=== PATIENT | female | born 1960 | race Two or more races ===

== ENCOUNTER 2017-12-24 11:54 | Emergency (ER) | payer MEDICARE, MEDICAID ==
[~2017-12-24] VITALS: Ht 160 cm; Wt 87.0 kg
[2017-12-24 12:03] VITALS: BP 172/84
[2017-12-24] MEDS ORDERED: SODIUM CHLORIDE 0.9% 1,000ML IVBOLUS ONE (12:30)
[2017-12-24 13:14] LABS: BASOPHILS # (AUTO) 0.02 x10^3/uL (0-0.1); BASOPHILS % (AUTO) 0 % (0-1); EOSINOPHILS # (AUTO) 0.05 x10^3/uL (0-0.4); EOSINOPHILS % (AUTO) 1 % (1-7); LYMPHOCYTES # (AUTO) 1.68 x10^3/uL (1-3.4); LYMPHOCYTES % (AUTO) 22 % (22-44); MD NO; MEAN CORPUSCULAR HEMOGLOBIN 25.9 pg (27.0-34.8); MEAN CORPUSCULAR VOLUME 80.8 fL (80-100); MEAN PLATELET VOLUME 8.5 fL (7.4-10.4); MONOCYTES # (AUTO) 0.36 x10^3/uL (0.2-0.8); MONOCYTES % (AUTO) 5 % (2-9); NEUTROPHILS # (AUTO) 5.67 x10^3/uL (1.8-6.8); NEUTROPHILS % (AUTO) 73 % (42-75); PLATELET COUNT 350 x10^3/uL (130-400); RED BLOOD COUNT 4.55 x10^6/uL (3.82-5.3); RED CELL DISTRIBUTION WIDTH 14.3 % (9.6-15.2)
[2017-12-24] MEDS ORDERED: BACITRACIN ZINC OINT 500U/GM, 0.9 GM ONE (13:21)
[2017-12-24 13:26] LABS: ALANINE AMINOTRANSFERASE 16 U/L (12-78); ANION GAP 12 mmol/L (5-15); CALCIUM 8.6 mg/dL (8.5-10.1); CHLORIDE 96 mmol/L (98-107); CREATININE 1.68 mg/dL (0.55-1.02)
[2017-12-24 13:28] LABS: ALKALINE PHOSPHATASE 189 U/L (45-117); BILIRUBIN,TOTAL 0.3 mg/dL (0.2-1.0); TOTAL PROTEIN 7.5 g/dL (6.4-8.2)
[2017-12-24] MEDS ORDERED: INSULIN REGULAR 100 UNITS/ML, 3ML VIAL SQ-INSULIN ONE (14:00)
[2017-12-24] MEDS ORDERED: INSULIN REGULAR 100 UNITS/ML, 3ML VIAL ONE (14:00)
[2017-12-24] MEDS ORDERED: ACETAMINOPHEN 325 MG TABLET ONE (14:12)
[2017-12-24] MEDS ORDERED: ACETAMINOPHEN 325 MG TABLET PO ONE (14:30)
== END 2017-12-24 15:02 | disposition home or self-care (01) ==
LOC: ED 13:43
DX: S80.02XA Contusion of left knee, initial encounter (principal); E11.65 Type 2 diabetes mellitus with hyperglycemia; I10 Essential (primary) hypertension; Z87.19 Personal history of other diseases of the digestive system; W01.0XXA Fall on same level from slipping, tripping and stumbling without subsequent striking against object, initial encounter; Y93.89 Activity, other specified; Y92.89 Other specified places as the place of occurrence of the external cause; Y99.8 Other external cause status
CPT/HCPCS: 36415; 73564; 80053; 82962; 85025; 96360; 96372; 99285; J7030

== ENCOUNTER 2018-05-21 17:48 | Emergency (ER) | payer OTHER, MEDICAID ==
[2018-05-21] MEDS ORDERED: HYDROcodone/APAP 5/325 TABLET ONE (18:29)
[2018-05-21] MEDS ORDERED: IBUPROFEN 600 MG TABLET ONE (18:29)
[2018-05-21] MEDS ORDERED: IBUPROFEN 600 MG TABLET PO ONE (18:30)
[2018-05-21] MEDS ORDERED: HYDROcodone/APAP 5/325 TABLET PO PRN (18:30)
--- NOTE | 2018-05-21 18:45 | NUR ---
Pt in radiology, will medicate when back to room
--- NOTE | 2018-05-21 19:07 | NUR ---
Pt back from radiology medicated per EMAR
--- NOTE | 2018-05-21 19:45 | NUR ---
TASK RN: Discharge instructions discussed with patient including when to return to emergency department, patient verbalizes understanding. Patient dresses independently, ambulates with a cane.
[2018-05-21 19:46] VITALS: BP 189/81
== END 2018-05-22 12:17 | disposition home or self-care (01) ==
LOC: ED 20:09
DX: G89.11 Acute pain due to trauma (principal); M25.512 Pain in left shoulder; M25.522 Pain in left elbow; M25.562 Pain in left knee; Z72.9 Problem related to lifestyle, unspecified; I10 Essential (primary) hypertension; E78.00 Pure hypercholesterolemia, unspecified; E11.65 Type 2 diabetes mellitus with hyperglycemia; W01.0XXA Fall on same level from slipping, tripping and stumbling without subsequent striking against object, initial encounter; Y93.89 Activity, other specified; Y92.410 Unspecified street and highway as the place of occurrence of the external cause; Y99.8 Other external cause status
CPT/HCPCS: 70450; 72125; 99284

== ENCOUNTER 2018-06-03 09:22 | Inpatient (IN) | payer OTHER, MEDICAID ==
[~2018-06-03] VITALS: Ht 160 cm; Wt 91.2 kg
[~2018-06-03 09:22] MED LIST: NITROGLYCERIN 0.4 MG BOTTLE (25 TABS) SL ONE
[2018-06-03] MEDS: BACITRACIN ZINC OINT 500U/GM, 0.9 GM TP STA ×2 (09:56→16:01)
--- NOTE | 2018-06-03 10:40 | NUR ---
Pt presents for pain and sbrasion to L knee after falling to days ago. Pt NAD at this time.
[2018-06-03 10:45] LABS: MEAN CORPUSCULAR HEMOGLOBIN 26.1 pg (27.0-34.8); MEAN CORPUSCULAR HGB CONC 32.1 g/dL (32.4-35.8); MEAN CORPUSCULAR VOLUME 81.5 fL (80-100); MEAN PLATELET VOLUME 8.2 fL (7.4-10.4); PLATELET COUNT 406 x10^3/uL (130-400); RED BLOOD COUNT 4.58 x10^6/uL (3.82-5.3); RED CELL DISTRIBUTION WIDTH 14.4 % (9.6-15.2)
[2018-06-03 10:46] LABS: HCT (SEDRATE) 37.7 % (34.6-47.8)
[2018-06-03 10:54] LABS: ALBUMIN 3.1 g/dL (3.4-5.0); ANION GAP 8 mmol/L (5-15); CHLORIDE 98 mmol/L (98-107); CREATININE 1.49 mg/dL (0.55-1.02)
[2018-06-03 11:06] LABS: BASOPHILS # (AUTO) 0.03 x10^3/uL (0-0.1); BASOPHILS % (AUTO) 0 % (0-1); EOSINOPHILS % (AUTO) 0 % (1-7); LYMPHOCYTES # (AUTO) 1.09 x10^3/uL (1-3.4); LYMPHOCYTES % (AUTO) 6 % (22-44); MD SCAN; MONOCYTES # (AUTO) 0.47 x10^3/uL (0.2-0.8); MONOCYTES % (AUTO) 3 % (2-9); NEUTROPHILS # (AUTO) 16.96 x10^3/uL (1.8-6.8); NEUTROPHILS % (AUTO) 92 % (42-75)
[2018-06-03] MEDS ORDERED: SODIUM CHLORIDE 0.9% 1,000 ML IV ONE (11:33)
[2018-06-03] MEDS ORDERED: ONDANSETRON 2MG/ML, 2ML ONE ×2 (11:37→17:50)
[2018-06-03] MEDS ORDERED: MORPHINE SULFATE 4 MG/ML, 1ML ONE (11:37)
[2018-06-03] MEDS ORDERED: CEFTRIAXONE PMX 1GM/50ML 50 ML ONE (11:37)
[2018-06-03] MEDS ORDERED: CEFTRIAXONE PMX 1GM/50ML 50 ML IVPB ONE (12:00)
[2018-06-03] MEDS ORDERED: MORPHINE SULFATE 4 MG/ML, 1ML IVPush PRN ×2 (12:00→18:00)
[2018-06-03] MEDS ORDERED: ONDANSETRON 2MG/ML, 2ML IVPush ONE (12:00)
[2018-06-03] MEDS ORDERED: SODIUM CHLORIDE 0.9% 1,000ML IVBOLUS ONE (12:00)
[2018-06-03] MEDS ORDERED: HYDR25TA11 PO (12:10)
[2018-06-03] MEDS ORDERED: INSU100V8 SQ (12:10)
[2018-06-03] MEDS ORDERED: PANT40TA5 PO (12:10)
[2018-06-03] MEDS ORDERED: CITA20TA9 PO (12:10)
[2018-06-03] MEDS ORDERED: INSU100C SQ-INSULIN (12:10)
[2018-06-03] MEDS ORDERED: BENA20TA54 PO (12:10)
[2018-06-03] MEDS ORDERED: GABA600T7 PO (12:10)
[2018-06-03] MEDS ORDERED: LOSA25TA25 PO (12:10)
[2018-06-03] MEDS ORDERED: METH750T2 PO (12:10)
[2018-06-03] MEDS ORDERED: ATOR40TA78 PO (12:10)
[2018-06-03] MEDS ORDERED: LINA5TAB PO (12:10)
[2018-06-03] MEDS ORDERED: IRON15TA3 PO (12:13)
[2018-06-03] MEDS ORDERED: TRAZODONE 50MG TABLET PO PRN (12:30)
[2018-06-03] MEDS ORDERED: POLYETHYLENE GLYCOL 17 GM PACKET PO PRN (12:30)
[2018-06-03] MEDS ORDERED: LABETALOL 5 MG/ML SYRINGE IVPush PRN (12:30)
[2018-06-03] MEDS ORDERED: ONDANSETRON 2MG/ML, 2ML IVPush PRN (12:30)
[2018-06-03] MEDS ORDERED: DOCUSATE 100 MG CAPSULE PO PRN (12:30)
[2018-06-03] MEDS ORDERED: ONDANSETRON ODT 4 MG PO PRN (12:30)
[2018-06-03] MEDS ORDERED: hydrALAzine 20 MG/ML, 1ML IVPush PRN (12:30)
[2018-06-03] MEDS ORDERED: BISACODYL 10 MG SUPP PR PRN (12:30)
[2018-06-03 12:57] LABS: FREE T4 (FREE THYROXINE) 1.16 ng/dL (0.76-1.46); THYROID STIMULATING HORMONE 0.935 mIU/L (0.358-3.740)
[2018-06-03 14:15] VITALS: BP 154/85
[2018-06-03] MEDS: MORPHINE SULFATE 4 MG/ML, 1ML IVPush PRN (14:34)
[2018-06-03] MEDS: LACTATED RINGERS 1,000 ML IV SCH (14:34)
[2018-06-03] MEDS: INSULIN REGULAR 100 UNITS/ML, 3ML VIAL SQ-INSULIN SCH ×2 (16:01→22:27)
[2018-06-03] MEDS ORDERED: FENTANYL PF 100 MCG/2ML ONE ×2 (16:58→18:14)
[2018-06-03] MEDS ORDERED: VANCOMYCIN 1,000 MG ONE (17:02)
[2018-06-03] MEDS ORDERED: CEFTRIAXONE 1,000 MG ONE (17:02)
[2018-06-03] MEDS ORDERED: PHENYLEPHRINE 10 MG/ML ONE (17:04)
[2018-06-03] MEDS ORDERED: CEFTRIAXONE 2 GM/50 ML ONE (17:04)
[2018-06-03] MEDS ORDERED: DEXAMETHASONE 4 MG/ML, 1ML ONE (17:50)
[2018-06-03] MEDS ORDERED: PROPOFOL 10 MG/ML, 20ML ONE (17:50)
[2018-06-03] MEDS ORDERED: ALBUTEROL/IPRATROPIUM 2.5MG/0.5MG, 3 ML NPPB PRN (18:00)
[2018-06-03] MEDS ORDERED: OXYcodone 5 MG/5 ML ORAL.SOL UDC PO PRN (18:00)
[2018-06-03] MEDS ORDERED: PROMETHAZINE 25 MG/ML, 1ML IV PRN (18:00)
[2018-06-03] MEDS ORDERED: METOPROLOL 1 MG/ML, 5ML IV PRN (18:00)
[2018-06-03] MEDS ORDERED: SCOPOLAMINE PATCH, 1.5MG PATCH.TD72 TD PRN (18:00)
[2018-06-03] MEDS ORDERED: ONDANSETRON 2MG/ML, 2ML IV PRN (18:00)
[2018-06-03] MEDS ORDERED: ACETAMINOPHEN 325 MG TABLET PO PRN (18:00)
[2018-06-03] MEDS ORDERED: MIDAZOLAM 1 MG/ML, 2ML IV PRN (18:00)
[2018-06-03] MEDS ORDERED: OXYcodone 5 MG/5 ML ORAL.SOL UDC ONE (18:14)
[2018-06-03] MEDS: FENTANYL PF 100 MCG/2ML IV PRN ×2 (18:16→18:41)
[2018-06-03 21:26] VITALS: BP 130/83
[2018-06-03] MEDS ORDERED: CEFTRIAXONE PMX 2GM/50ML 50 ML IVPB SCH (22:00)
[2018-06-03] MEDS: ATORVASTATIN 40 MG TABLET PO SCH (22:27)
[2018-06-03] MEDS: LOSARTAN 50MG TABLET PO SCH (22:28)
[2018-06-03] MEDS: GABAPENTIN 300 MG CAPSULE PO SCH (22:28)
[2018-06-03] MEDS: PANTOPROZOLE 40MG TABLET PO SCH (22:28)
[2018-06-03] MEDS: METHOCARBAMOL 750 MG TABLET PO PRN (22:33)
[2018-06-04 00:17] VITALS: BP 154/82
[2018-06-04] MEDS: ACETAMINOPHEN 325 MG TABLET PO PRN ×4 (02:14→20:09)
[2018-06-04] MEDS: LACTATED RINGERS 1,000 ML IV SCH (02:55)
[2018-06-04 04:44] VITALS: BP 146/79
[2018-06-04] MEDS: CEFTRIAXONE PMX 2GM/50ML 50 ML IVPB SCH (05:18)
[2018-06-04 05:36] LABS: MEAN CORPUSCULAR HEMOGLOBIN 26.8 pg (27.0-34.8); MEAN CORPUSCULAR HGB CONC 32.6 g/dL (32.4-35.8); MEAN CORPUSCULAR VOLUME 82.1 fL (80-100); MEAN PLATELET VOLUME 8.4 fL (7.4-10.4); PLATELET COUNT 341 x10^3/uL (130-400); RED CELL DISTRIBUTION WIDTH 14.8 % (9.6-15.2)
[2018-06-04 05:50] LABS: CHLORIDE 98 mmol/L (98-107)
[2018-06-04 05:58] LABS: ANION GAP 9 mmol/L (5-15); CALCIUM 8.3 mg/dL (8.5-10.1); CHOL/HDL RATIO 2.3; CHOLESTEROL, TOTAL 152 mg/dL (140-239); CREATININE 1.38 mg/dL (0.55-1.02); HDL CHOL % 44 % (28-40); HDL CHOLESTEROL (DIRECT) 67 mg/dL (40-60); LDL CHOLESTEROL,CALCULATED 58 mg/dL (54-169); LDL/HDL RATIO 0.9 (0.5-3.0); TRIGLYCERIDES 133 mg/dL (50-200); VLDL CHOLESTEROL 27 mg/dL (0-25)
[2018-06-04 06:22] LABS: BASOPHILS % (AUTO) 0 % (0-1); EOSINOPHILS % (AUTO) 0 % (1-7); LYMPHOCYTES % (AUTO) 7 % (22-44); MD SCAN; MONOCYTES # (AUTO) 0.28 x10^3/uL (0.2-0.8); MONOCYTES % (AUTO) 2 % (2-9); NEUTROPHILS # (AUTO) 17.02 x10^3/uL (1.8-6.8); NEUTROPHILS % (AUTO) 92 % (42-75)
[2018-06-04] MEDS: LINAGLIPTIN 5 MG TAB PO SCH (07:43)
[2018-06-04] MEDS: INSULIN REGULAR 100 UNITS/ML, 3ML VIAL SQ-INSULIN SCH ×4 (07:43→20:10)
[2018-06-04] MEDS: BENAZEPRIL 20 MG TABLET PO SCH (07:44)
[2018-06-04] MEDS: GABAPENTIN 300 MG CAPSULE PO SCH ×2 (07:44→20:09)
[2018-06-04] MEDS: CITALOPRAM 20 MG TABLET PO SCH (07:44)
[2018-06-04] MEDS: PANTOPROZOLE 40MG TABLET PO SCH ×2 (07:44→20:09)
[2018-06-04] MEDS: LOSARTAN 50MG TABLET PO SCH ×2 (07:44→20:09)
[2018-06-04 07:58] VITALS: BP 136/64
[2018-06-04] MEDS ORDERED: IRON CARBONYL 15 MG PO SCH (09:00)
[2018-06-04 14:42] VITALS: BP 122/65
[2018-06-04 20:00] VITALS: BP 131/71
[2018-06-04] MEDS: ATORVASTATIN 40 MG TABLET PO SCH (20:09)
[2018-06-05 02:24] VITALS: BP 130/68
[2018-06-05] MEDS: CEFTRIAXONE PMX 2GM/50ML 50 ML IVPB SCH (05:13)
[2018-06-05 05:47] LABS: BASOPHILS # (AUTO) 0.05 x10^3/uL (0-0.1); BASOPHILS % (AUTO) 0 % (0-1); EOSINOPHILS # (AUTO) 0.01 x10^3/uL (0-0.4); EOSINOPHILS % (AUTO) 0 % (1-7); LYMPHOCYTES # (AUTO) 2.12 x10^3/uL (1-3.4); LYMPHOCYTES % (AUTO) 19 % (22-44); MD NO; MEAN CORPUSCULAR HEMOGLOBIN 26.7 pg (27.0-34.8); MEAN CORPUSCULAR HGB CONC 32.4 g/dL (32.4-35.8); MEAN CORPUSCULAR VOLUME 82.4 fL (80-100); MEAN PLATELET VOLUME 8.4 fL (7.4-10.4); MONOCYTES # (AUTO) 0.56 x10^3/uL (0.2-0.8); MONOCYTES % (AUTO) 5 % (2-9); NEUTROPHILS # (AUTO) 8.48 x10^3/uL (1.8-6.8); NEUTROPHILS % (AUTO) 76 % (42-75); PLATELET COUNT 334 x10^3/uL (130-400); RED BLOOD COUNT 3.87 x10^6/uL (3.82-5.3)
[2018-06-05] MEDS: METHOCARBAMOL 750 MG TABLET PO PRN (05:55)
[2018-06-05 05:59] LABS: ANION GAP 7 mmol/L (5-15); CALCIUM 8.5 mg/dL (8.5-10.1); CHLORIDE 101 mmol/L (98-107); CREATININE 1.37 mg/dL (0.55-1.02)
[2018-06-05 07:59] VITALS: BP 157/77
[2018-06-05] MEDS: INSULIN REGULAR 100 UNITS/ML, 3ML VIAL SQ-INSULIN SCH ×4 (08:30→22:38)
[2018-06-05] MEDS: LINAGLIPTIN 5 MG TAB PO SCH (08:32)
[2018-06-05] MEDS: BENAZEPRIL 20 MG TABLET PO SCH (08:33)
[2018-06-05] MEDS: PANTOPROZOLE 40MG TABLET PO SCH ×2 (08:34→20:49)
[2018-06-05] MEDS: GABAPENTIN 300 MG CAPSULE PO SCH ×2 (08:34→20:48)
[2018-06-05] MEDS: CITALOPRAM 20 MG TABLET PO SCH (08:35)
[2018-06-05] MEDS: LOSARTAN 50MG TABLET PO SCH ×2 (08:35→20:49)
[2018-06-05] MEDS: ACETAMINOPHEN 325 MG TABLET PO PRN (09:57)
[2018-06-05] MEDS ORDERED: CEFAZOLIN 2,000 MG in SODIUM CHLORIDE 0.9% 50 ML IV SCH (10:00)
[2018-06-05] MEDS: INSULIN GLARGINE 100 UNITS/ML, PEN SQ-INSULIN SCH ×2 (13:00→22:39)
[2018-06-05 14:17] VITALS: BP 149/79
[2018-06-05] MEDS: CEFAZOLIN 2,000 MG in SODIUM CHLORIDE 0.9% 50 ML IV SCH (14:53)
[2018-06-05] MEDS ORDERED: NITROGLYCERIN 0.4 MG BOTTLE (25 TABS) SL PRN (17:30)
[2018-06-05 18:29] LABS: TROPONIN I < 0.015 ng/mL (0.000-0.045)
[2018-06-05 18:35] VITALS: BP 141/80
[2018-06-05] MEDS: MORPHINE SULFATE 4 MG/ML, 1ML IVPush PRN (20:22)
[2018-06-05] MEDS: ATORVASTATIN 40 MG TABLET PO SCH (20:48)
[2018-06-05] MEDS ORDERED: INSULIN REGULAR 100 UNITS/ML, 3ML VIAL SQ-INSULIN ONE (23:00)
[2018-06-06] MEDS: CEFAZOLIN 2,000 MG in SODIUM CHLORIDE 0.9% 50 ML IV SCH ×2 (03:55→15:41)
[2018-06-06 04:20] VITALS: BP 151/76
[2018-06-06 04:37] LABS: BASOPHILS # (AUTO) 0.03 x10^3/uL (0-0.1); BASOPHILS % (AUTO) 0 % (0-1); EOSINOPHILS # (AUTO) 0.02 x10^3/uL (0-0.4); EOSINOPHILS % (AUTO) 0 % (1-7); LYMPHOCYTES % (AUTO) 22 % (22-44); MD NO; MEAN CORPUSCULAR HEMOGLOBIN 26.8 pg (27.0-34.8); MEAN CORPUSCULAR HGB CONC 32.8 g/dL (32.4-35.8); MEAN CORPUSCULAR VOLUME 81.5 fL (80-100); MEAN PLATELET VOLUME 8.3 fL (7.4-10.4); MONOCYTES # (AUTO) 0.67 x10^3/uL (0.2-0.8); MONOCYTES % (AUTO) 7 % (2-9); NEUTROPHILS % (AUTO) 71 % (42-75); PLATELET COUNT 373 x10^3/uL (130-400); RED BLOOD COUNT 3.87 x10^6/uL (3.82-5.3); RED CELL DISTRIBUTION WIDTH 14.7 % (9.6-15.2)
[2018-06-06 04:47] LABS: ANION GAP 6 mmol/L (5-15); CALCIUM 8.7 mg/dL (8.5-10.1); CHLORIDE 100 mmol/L (98-107); CREATININE 1.48 mg/dL (0.55-1.02)
[2018-06-06 06:51] VITALS: BP 160/77
[2018-06-06] MEDS: BENAZEPRIL 20 MG TABLET PO SCH (07:34)
[2018-06-06] MEDS: PANTOPROZOLE 40MG TABLET PO SCH ×2 (07:34→21:30)
[2018-06-06] MEDS: LOSARTAN 50MG TABLET PO SCH ×2 (07:34→21:31)
[2018-06-06] MEDS: LINAGLIPTIN 5 MG TAB PO SCH (07:34)
[2018-06-06] MEDS: CITALOPRAM 20 MG TABLET PO SCH (07:34)
[2018-06-06] MEDS: GABAPENTIN 300 MG CAPSULE PO SCH ×2 (07:34→21:31)
[2018-06-06] MEDS: INSULIN REGULAR 100 UNITS/ML, 3ML VIAL SQ-INSULIN SCH ×4 (07:37→21:30)
[2018-06-06] MEDS: INSULIN GLARGINE 100 UNITS/ML, PEN SQ-INSULIN SCH ×2 (07:38→21:30)
[2018-06-06 10:06] LABS: TROPONIN I < 0.015 ng/mL (0.000-0.045)
[2018-06-06] MEDS ORDERED: REGADENOSON 0.4 MG/5 ML SYRINGE ONE (10:56)
[2018-06-06 13:58] VITALS: BP 155/86
[2018-06-06] MEDS: ACETAMINOPHEN 325 MG TABLET PO PRN ×2 (14:13→23:44)
[2018-06-06 17:47] VITALS: BP 152/81
[2018-06-06 19:46] VITALS: BP 164/71
[2018-06-06] MEDS: ATORVASTATIN 40 MG TABLET PO SCH (21:31)
[2018-06-06] MEDS: METHOCARBAMOL 750 MG TABLET PO PRN (23:45)
[2018-06-07 01:43] VITALS: BP 115/70
[2018-06-07] MEDS: CEFAZOLIN 2,000 MG in SODIUM CHLORIDE 0.9% 50 ML IV SCH ×3 (04:50→22:19)
[2018-06-07 05:28] LABS: BASOPHILS # (AUTO) 0.03 x10^3/uL (0-0.1); BASOPHILS % (AUTO) 0 % (0-1); EOSINOPHILS # (AUTO) 0.06 x10^3/uL (0-0.4); EOSINOPHILS % (AUTO) 1 % (1-7); LYMPHOCYTES # (AUTO) 2.06 x10^3/uL (1-3.4); LYMPHOCYTES % (AUTO) 25 % (22-44); MD NO; MEAN CORPUSCULAR HEMOGLOBIN 26.7 pg (27.0-34.8); MEAN CORPUSCULAR HGB CONC 32.8 g/dL (32.4-35.8); MEAN CORPUSCULAR VOLUME 81.5 fL (80-100); MONOCYTES # (AUTO) 0.44 x10^3/uL (0.2-0.8); MONOCYTES % (AUTO) 5 % (2-9); NEUTROPHILS # (AUTO) 5.59 x10^3/uL (1.8-6.8); NEUTROPHILS % (AUTO) 68 % (42-75); PLATELET COUNT 415 x10^3/uL (130-400); RED BLOOD COUNT 3.85 x10^6/uL (3.82-5.3); RED CELL DISTRIBUTION WIDTH 14.6 % (9.6-15.2)
[2018-06-07 05:39] LABS: ANION GAP 6 mmol/L (5-15); CALCIUM 8.5 mg/dL (8.5-10.1); CHLORIDE 103 mmol/L (98-107)
[2018-06-07] MEDS: INSULIN REGULAR 100 UNITS/ML, 3ML VIAL SQ-INSULIN SCH ×4 (07:33→22:27)
[2018-06-07 08:16] VITALS: BP 137/75
[2018-06-07] MEDS: BENAZEPRIL 20 MG TABLET PO SCH (08:21)
[2018-06-07] MEDS: GABAPENTIN 300 MG CAPSULE PO SCH ×2 (08:22→20:49)
[2018-06-07] MEDS: CITALOPRAM 20 MG TABLET PO SCH (08:22)
[2018-06-07] MEDS: LOSARTAN 50MG TABLET PO SCH ×2 (08:22→20:49)
[2018-06-07] MEDS: LINAGLIPTIN 5 MG TAB PO SCH (08:22)
[2018-06-07] MEDS: PANTOPROZOLE 40MG TABLET PO SCH ×2 (08:22→20:49)
[2018-06-07] MEDS: INSULIN GLARGINE 100 UNITS/ML, PEN SQ-INSULIN SCH ×2 (08:29→22:27)
[2018-06-07] MEDS: MORPHINE SULFATE 4 MG/ML, 1ML IVPush PRN (10:44)
[2018-06-07] MEDS: METHOCARBAMOL 750 MG TABLET PO PRN (13:14)
[2018-06-07 13:41] VITALS: BP 147/75
[2018-06-07 19:26] VITALS: BP 138/81
[2018-06-07] MEDS: ACETAMINOPHEN 325 MG TABLET PO PRN (20:49)
[2018-06-07] MEDS: ATORVASTATIN 40 MG TABLET PO SCH (20:49)
[2018-06-08 01:41] VITALS: BP 151/79
[2018-06-08 05:00] LABS: BASOPHILS # (AUTO) 0.04 x10^3/uL (0-0.1); BASOPHILS % (AUTO) 1 % (0-1); EOSINOPHILS # (AUTO) 0.06 x10^3/uL (0-0.4); EOSINOPHILS % (AUTO) 1 % (1-7); LYMPHOCYTES % (AUTO) 27 % (22-44); MD NO; MEAN CORPUSCULAR HEMOGLOBIN 26.9 pg (27.0-34.8); MEAN CORPUSCULAR VOLUME 81.6 fL (80-100); MEAN PLATELET VOLUME 7.9 fL (7.4-10.4); MONOCYTES # (AUTO) 0.43 x10^3/uL (0.2-0.8); MONOCYTES % (AUTO) 6 % (2-9); NEUTROPHILS # (AUTO) 4.84 x10^3/uL (1.8-6.8); NEUTROPHILS % (AUTO) 66 % (42-75); PLATELET COUNT 413 x10^3/uL (130-400); RED BLOOD COUNT 3.64 x10^6/uL (3.82-5.3); RED CELL DISTRIBUTION WIDTH 14.6 % (9.6-15.2)
[2018-06-08 05:11] LABS: HCT (SEDRATE) 29.2 % (34.6-47.8)
[2018-06-08 05:14] LABS: ALBUMIN 2.1 g/dL (3.4-5.0); ANION GAP 7 mmol/L (5-15); CALCIUM 8.1 mg/dL (8.5-10.1); CHLORIDE 104 mmol/L (98-107)
[2018-06-08 05:23] LABS: ALANINE AMINOTRANSFERASE 7 U/L (12-78); ALKALINE PHOSPHATASE 176 U/L (45-117); BILIRUBIN,TOTAL 0.2 mg/dL (0.2-1.0); CREATININE 1.35 mg/dL (0.55-1.02); TOTAL PROTEIN 6.3 g/dL (6.4-8.2)
[2018-06-08] MEDS: CEFAZOLIN 2,000 MG in SODIUM CHLORIDE 0.9% 50 ML IV SCH ×3 (05:26→22:15)
[2018-06-08] MEDS: INSULIN REGULAR 100 UNITS/ML, 3ML VIAL SQ-INSULIN SCH ×4 (07:20→21:10)
[2018-06-08 07:43] VITALS: BP 134/72
[2018-06-08] MEDS: LINAGLIPTIN 5 MG TAB PO SCH (08:24)
[2018-06-08] MEDS: BENAZEPRIL 20 MG TABLET PO SCH (08:25)
[2018-06-08] MEDS: CITALOPRAM 20 MG TABLET PO SCH (08:25)
[2018-06-08] MEDS: METHOCARBAMOL 750 MG TABLET PO PRN ×2 (08:25→17:25)
[2018-06-08] MEDS: GABAPENTIN 300 MG CAPSULE PO SCH ×2 (08:25→21:08)
[2018-06-08] MEDS: LOSARTAN 50MG TABLET PO SCH ×2 (08:25→21:09)
[2018-06-08] MEDS: PANTOPROZOLE 40MG TABLET PO SCH ×2 (08:25→21:08)
[2018-06-08] MEDS: INSULIN GLARGINE 100 UNITS/ML, PEN SQ-INSULIN SCH ×2 (08:26→21:09)
[2018-06-08 13:31] VITALS: BP 168/80
[2018-06-08] MEDS: ACETAMINOPHEN 325 MG TABLET PO PRN ×2 (14:28→21:09)
[2018-06-08 20:33] VITALS: BP 159/66
[2018-06-08] MEDS: ATORVASTATIN 40 MG TABLET PO SCH (21:08)
[2018-06-09 01:58] VITALS: BP 134/67
[2018-06-09] MEDS: METHOCARBAMOL 750 MG TABLET PO PRN ×2 (02:00→11:28)
[2018-06-09] MEDS: ACETAMINOPHEN 325 MG TABLET PO PRN ×3 (02:00→20:46)
[2018-06-09] MEDS: CEFAZOLIN 2,000 MG in SODIUM CHLORIDE 0.9% 50 ML IV SCH ×3 (05:57→22:24)
[2018-06-09 06:15] LABS: BASOPHILS # (AUTO) 0.06 x10^3/uL (0-0.1); BASOPHILS % (AUTO) 1 % (0-1); EOSINOPHILS % (AUTO) 1 % (1-7); LYMPHOCYTES # (AUTO) 2.04 x10^3/uL (1-3.4); LYMPHOCYTES % (AUTO) 27 % (22-44); MD NO; MEAN CORPUSCULAR HEMOGLOBIN 26.7 pg (27.0-34.8); MEAN CORPUSCULAR HGB CONC 32.4 g/dL (32.4-35.8); MEAN CORPUSCULAR VOLUME 82.4 fL (80-100); MEAN PLATELET VOLUME 7.9 fL (7.4-10.4); MONOCYTES # (AUTO) 0.43 x10^3/uL (0.2-0.8); MONOCYTES % (AUTO) 6 % (2-9); NEUTROPHILS # (AUTO) 5.02 x10^3/uL (1.8-6.8); NEUTROPHILS % (AUTO) 66 % (42-75); PLATELET COUNT 438 x10^3/uL (130-400); RED BLOOD COUNT 3.66 x10^6/uL (3.82-5.3); RED CELL DISTRIBUTION WIDTH 15.1 % (9.6-15.2)
[2018-06-09 06:20] LABS: ANION GAP 4 mmol/L (5-15); CALCIUM 8.3 mg/dL (8.5-10.1); CHLORIDE 106 mmol/L (98-107); CREATININE 1.32 mg/dL (0.55-1.02)
[2018-06-09] MEDS: INSULIN REGULAR 100 UNITS/ML, 3ML VIAL SQ-INSULIN SCH ×4 (07:25→20:46)
[2018-06-09 07:45] VITALS: BP 124/76
[2018-06-09] MEDS: GABAPENTIN 300 MG CAPSULE PO SCH ×2 (09:01→20:47)
[2018-06-09] MEDS: INSULIN GLARGINE 100 UNITS/ML, PEN SQ-INSULIN SCH ×2 (09:02→20:46)
[2018-06-09] MEDS: CITALOPRAM 20 MG TABLET PO SCH (09:02)
[2018-06-09] MEDS: LINAGLIPTIN 5 MG TAB PO SCH (09:02)
[2018-06-09] MEDS: LOSARTAN 50MG TABLET PO SCH ×2 (09:02→20:46)
[2018-06-09] MEDS: BENAZEPRIL 20 MG TABLET PO SCH (09:02)
[2018-06-09] MEDS: PANTOPROZOLE 40MG TABLET PO SCH ×2 (09:03→20:46)
[2018-06-09 12:55] VITALS: BP 144/81
[2018-06-09 20:19] VITALS: BP 155/72
[2018-06-09] MEDS: ATORVASTATIN 40 MG TABLET PO SCH (20:46)
[2018-06-10 01:52] VITALS: BP 114/63
[2018-06-10] MEDS: CEFAZOLIN 2,000 MG in SODIUM CHLORIDE 0.9% 50 ML IV SCH ×3 (06:00→22:09)
[2018-06-10 06:27] LABS: BASOPHILS # (AUTO) 0.03 x10^3/uL (0-0.1); BASOPHILS % (AUTO) 0 % (0-1); EOSINOPHILS % (AUTO) 1 % (1-7); LYMPHOCYTES # (AUTO) 1.66 x10^3/uL (1-3.4); LYMPHOCYTES % (AUTO) 20 % (22-44); MD NO; MEAN CORPUSCULAR HEMOGLOBIN 26.1 pg (27.0-34.8); MEAN CORPUSCULAR HGB CONC 32.1 g/dL (32.4-35.8); MEAN CORPUSCULAR VOLUME 81.3 fL (80-100); MEAN PLATELET VOLUME 7.9 fL (7.4-10.4); MONOCYTES % (AUTO) 5 % (2-9); NEUTROPHILS # (AUTO) 6.27 x10^3/uL (1.8-6.8); NEUTROPHILS % (AUTO) 74 % (42-75); PLATELET COUNT 517 x10^3/uL (130-400); RED BLOOD COUNT 3.76 x10^6/uL (3.82-5.3); RED CELL DISTRIBUTION WIDTH 14.7 % (9.6-15.2)
[2018-06-10 06:35] LABS: ANION GAP 5 mmol/L (5-15); CALCIUM 8.7 mg/dL (8.5-10.1); CHLORIDE 105 mmol/L (98-107); CREATININE 1.38 mg/dL (0.55-1.02)
[2018-06-10] MEDS: INSULIN REGULAR 100 UNITS/ML, 3ML VIAL SQ-INSULIN SCH ×4 (07:00→22:10)
[2018-06-10 07:48] VITALS: BP 134/69
[2018-06-10] MEDS: LOSARTAN 50MG TABLET PO SCH ×2 (09:26→22:11)
[2018-06-10] MEDS: BENAZEPRIL 20 MG TABLET PO SCH (09:27)
[2018-06-10] MEDS: PANTOPROZOLE 40MG TABLET PO SCH ×2 (09:27→22:11)
[2018-06-10] MEDS: INSULIN GLARGINE 100 UNITS/ML, PEN SQ-INSULIN SCH ×2 (09:27→22:10)
[2018-06-10] MEDS: LINAGLIPTIN 5 MG TAB PO SCH (09:27)
[2018-06-10] MEDS: GABAPENTIN 300 MG CAPSULE PO SCH ×2 (09:27→22:11)
[2018-06-10] MEDS: CITALOPRAM 20 MG TABLET PO SCH (09:28)
[2018-06-10] MEDS: ACETAMINOPHEN 325 MG TABLET PO PRN ×2 (10:36→19:28)
[2018-06-10 13:57] VITALS: BP 157/73
[2018-06-10] MEDS: METHOCARBAMOL 750 MG TABLET PO PRN (22:10)
[2018-06-10] MEDS: ATORVASTATIN 40 MG TABLET PO SCH (22:11)
[2018-06-11 03:55] VITALS: BP 109/58
[2018-06-11] MEDS: CEFAZOLIN 2,000 MG in SODIUM CHLORIDE 0.9% 50 ML IV SCH ×3 (06:02→22:34)
[2018-06-11] MEDS: INSULIN REGULAR 100 UNITS/ML, 3ML VIAL SQ-INSULIN SCH ×4 (07:58→20:26)
[2018-06-11] MEDS: CITALOPRAM 20 MG TABLET PO SCH (07:58)
[2018-06-11] MEDS: LINAGLIPTIN 5 MG TAB PO SCH (07:59)
[2018-06-11] MEDS: PANTOPROZOLE 40MG TABLET PO SCH ×2 (07:59→20:26)
[2018-06-11] MEDS: BENAZEPRIL 20 MG TABLET PO SCH (07:59)
[2018-06-11] MEDS: LOSARTAN 50MG TABLET PO SCH ×2 (07:59→20:26)
[2018-06-11] MEDS: GABAPENTIN 300 MG CAPSULE PO SCH ×2 (07:59→20:26)
[2018-06-11] MEDS: HEPARIN 5,000 UNITS/ML, 1ML SQ SCH ×3 (08:02→22:34)
[2018-06-11] MEDS: INSULIN GLARGINE 100 UNITS/ML, PEN SQ-INSULIN SCH ×2 (08:02→20:27)
[2018-06-11 08:10] VITALS: BP 145/76
[2018-06-11 08:24] LABS: BASOPHILS # (AUTO) 0.02 x10^3/uL (0-0.1); BASOPHILS % (AUTO) 0 % (0-1); EOSINOPHILS # (AUTO) 0.05 x10^3/uL (0-0.4); EOSINOPHILS % (AUTO) 1 % (1-7); LYMPHOCYTES # (AUTO) 1.85 x10^3/uL (1-3.4); LYMPHOCYTES % (AUTO) 22 % (22-44); MD NO; MEAN CORPUSCULAR HGB CONC 31.7 g/dL (32.4-35.8); MEAN CORPUSCULAR VOLUME 82.1 fL (80-100); MONOCYTES # (AUTO) 0.33 x10^3/uL (0.2-0.8); MONOCYTES % (AUTO) 4 % (2-9); NEUTROPHILS # (AUTO) 6.24 x10^3/uL (1.8-6.8); NEUTROPHILS % (AUTO) 74 % (42-75); PLATELET COUNT 601 x10^3/uL (130-400); RED BLOOD COUNT 4.03 x10^6/uL (3.82-5.3); RED CELL DISTRIBUTION WIDTH 14.8 % (9.6-15.2)
[2018-06-11 08:30] VITALS: BP 118/69
[2018-06-11 08:33] LABS: ANION GAP 4 mmol/L (5-15); CHLORIDE 102 mmol/L (98-107)
[2018-06-11 08:34] LABS: CREATININE 1.61 mg/dL (0.55-1.02)
[2018-06-11] MEDS: ACETAMINOPHEN 325 MG TABLET PO PRN ×2 (11:07→20:25)
[2018-06-11 15:25] VITALS: BP 112/72
[2018-06-11 18:44] VITALS: BP 140/67
[2018-06-11] MEDS: ATORVASTATIN 40 MG TABLET PO SCH (20:25)
[2018-06-11] MEDS: METHOCARBAMOL 750 MG TABLET PO PRN (22:34)
[2018-06-12 01:31] VITALS: BP 125/72
[2018-06-12 05:43] LABS: ALBUMIN 2.5 g/dL (3.4-5.0); ANION GAP 4 mmol/L (5-15); CALCIUM 8.7 mg/dL (8.5-10.1); CHLORIDE 105 mmol/L (98-107)
[2018-06-12 05:49] LABS: ALANINE AMINOTRANSFERASE 8 U/L (12-78); ALKALINE PHOSPHATASE 180 U/L (45-117); BILIRUBIN,TOTAL 0.3 mg/dL (0.2-1.0); CREATININE 1.33 mg/dL (0.55-1.02); TOTAL PROTEIN 6.6 g/dL (6.4-8.2)
[2018-06-12] MEDS: CEFAZOLIN 2,000 MG in SODIUM CHLORIDE 0.9% 50 ML IV SCH ×2 (06:05→15:19)
[2018-06-12] MEDS: INSULIN REGULAR 100 UNITS/ML, 3ML VIAL SQ-INSULIN SCH ×3 (07:00→16:44)
[2018-06-12 07:51] VITALS: BP 115/72
[2018-06-12] MEDS: CITALOPRAM 20 MG TABLET PO SCH (08:11)
[2018-06-12] MEDS: LOSARTAN 50MG TABLET PO SCH (08:11)
[2018-06-12] MEDS: PANTOPROZOLE 40MG TABLET PO SCH (08:12)
[2018-06-12] MEDS: LINAGLIPTIN 5 MG TAB PO SCH (08:12)
[2018-06-12] MEDS: GABAPENTIN 300 MG CAPSULE PO SCH (08:12)
[2018-06-12] MEDS: INSULIN GLARGINE 100 UNITS/ML, PEN SQ-INSULIN SCH (08:15)
[2018-06-12] MEDS: HEPARIN 5,000 UNITS/ML, 1ML SQ SCH ×2 (08:16→16:44)
[2018-06-12] MEDS: ACETAMINOPHEN 325 MG TABLET PO PRN ×2 (10:29→15:22)
[2018-06-12] MEDS ORDERED: ACET325T14 PO (13:59)
[2018-06-12] MEDS ORDERED: INSU100I13 SQ-INSULIN (13:59)
[2018-06-12 15:00] VITALS: BP 147/86
[2018-06-12 16:40] VITALS: BP 147/86
== END 2018-06-12 18:51 | DRG 853 ==
LOC: ED 10:04 → EDIP 11:53 → 4NOR 13:14 → 5SO 06-05 17:52 → 4NOR 06-06 17:28
PROVIDERS: ADMIT Internal Medicine; ATTEND Internal Medicine
PROC: 0MBN0ZZ Excision of Right Knee Bursa and Ligament, Open Approach (ICD-10-PCS; principal; 2018-06-03 17:00)
PROC: 02HV33Z Insertion of Infusion Device into Superior Vena Cava, Percutaneous Approach (ICD-10-PCS; 2018-06-05)
PROC: B5181ZA Fluoroscopy of Superior Vena Cava using Low Osmolar Contrast, Guidance (ICD-10-PCS; 2018-06-05)
PROC: B548ZZA Ultrasonography of Superior Vena Cava, Guidance (ICD-10-PCS; 2018-06-05)
DX: A41.9 Sepsis, unspecified organism (principal); N17.0 Acute kidney failure with tubular necrosis; E87.1 Hypo-osmolality and hyponatremia; M71.161 Other infective bursitis, right knee; N18.3 Chronic kidney disease, stage 3 (moderate); K21.9 Gastro-esophageal reflux disease without esophagitis; I12.9 Hypertensive chronic kidney disease with stage 1 through stage 4 chronic kidney disease, or unspecified chronic kidney disease; E78.5 Hyperlipidemia, unspecified; E11.65 Type 2 diabetes mellitus with hyperglycemia; E11.22 Type 2 diabetes mellitus with diabetic chronic kidney disease; M21.371 Foot drop, right foot; S80.211A Abrasion, right knee, initial encounter; E78.00 Pure hypercholesterolemia, unspecified; D63.8 Anemia in other chronic diseases classified elsewhere; D50.9 Iron deficiency anemia, unspecified; D72.829 Elevated white blood cell count, unspecified; W18.30XA Fall on same level, unspecified, initial encounter; Y93.89 Activity, other specified; Z83.3 Family history of diabetes mellitus; Z59.0 Homelessness; Z79.4 Long term (current) use of insulin; Y92.89 Other specified places as the place of occurrence of the external cause; Y99.8 Other external cause status
CPT/HCPCS: 36415; 36573; 71045; 71275; 78452; 80048; 80053; 80061; 82040; 82947; 82962; 83036; 83605; 84439; 84443; 84484; 85025; 85651; 86140; 87040; 87070; 87075; 87077; 87147; 87186; 87205; 93005; 93017; 96374; 96375; G0378; J0690; J0696; J1100; J1644; J1815; J2405; J2704; J2785; J3010; J3370; Q0162; A9502; C1751; C9898; J2370; J7030; J7120

== ENCOUNTER 2018-09-26 14:09 | Emergency (ER) | payer OTHER, MEDICAID ==
[~2018-09-26] VITALS: Ht 160 cm; Wt 95.0 kg
[~2018-09-26 14:09] MED LIST changes: +ACET325T14 PO; +ACET500T57 PO; +ATOR40TA78 PO; +BENA20TA54 PO; +CITA20TA9 PO; +GABA600T7 PO; +HYDR-3342 PO; +HYDR-826 PO; +INSU100C SQ-INSULIN; +INSU100I13 SQ-INSULIN; +INSU100I28 SC; +INSU100V8 SQ; +IRON15TA3 PO; +LINA5TAB PO; +LOSA25TA25 PO; +METF500T17 PO; +METH750T2 PO; -NITROGLYCERIN 0.4 MG BOTTLE (25 TABS) SL ONE; +OMEP40CA6 PO; +PANT40TA5 PO
--- NOTE | 2018-09-26 14:16 | NUR ---
PT BIB [facility]. PT DEVELOPED CHEST PAIN AND ANXIETY AFTER [employer] EVICTED THEM FROM THEIR APT, AND SON WAS TAKEN TO SNF. FINGER STICK WAS 495 FOR [facility]. PT PLACED ON BP, CARDIAC, AND CONT PULSE OX. IV STARTED IN FIELD. EKG DONE AND PRESENTED TO MD. ASSESSMENT COMPLETED.
[2018-09-26] MEDS ORDERED: SODIUM CHLORIDE 0.9% 1,000ML IVBOLUS ONE ×2 (14:30→16:00)
[2018-09-26] MEDS ORDERED: SODIUM CHLORIDE FLUSH 10ML SYR IVF ONE (14:30)
[2018-09-26 14:39] LABS: BASOPHILS # (AUTO) 0.03 x10^3/uL (0-0.1); BASOPHILS % (AUTO) 0 % (0-1); EOSINOPHILS # (AUTO) 0.01 x10^3/uL (0-0.4); EOSINOPHILS % (AUTO) 0 % (1-7); LYMPHOCYTES # (AUTO) 1.37 x10^3/uL (1-3.4); LYMPHOCYTES % (AUTO) 16 % (22-44); MD NO; MEAN CORPUSCULAR HEMOGLOBIN 26.9 pg (27.0-34.8); MEAN CORPUSCULAR HGB CONC 31.7 g/dL (32.4-35.8); MEAN CORPUSCULAR VOLUME 84.9 fL (80-100); MEAN PLATELET VOLUME 8.4 fL (7.4-10.4); MONOCYTES # (AUTO) 0.25 x10^3/uL (0.2-0.8); MONOCYTES % (AUTO) 3 % (2-9); NEUTROPHILS # (AUTO) 6.79 x10^3/uL (1.8-6.8); NEUTROPHILS % (AUTO) 80 % (42-75); PLATELET COUNT 331 x10^3/uL (130-400); RED BLOOD COUNT 3.87 x10^6/uL (3.82-5.3); RED CELL DISTRIBUTION WIDTH 14.1 % (9.6-15.2)
[2018-09-26 14:50] LABS: ALBUMIN 2.9 g/dL (3.4-5.0); ANION GAP 10 mmol/L (5-15); CALCIUM 8.1 mg/dL (8.5-10.1); CHLORIDE 103 mmol/L (98-107); CREATININE 1.98 mg/dL (0.55-1.02)
[2018-09-26 14:54] LABS: TROPONIN I < 0.015 ng/mL (0.000-0.045)
--- NOTE | 2018-09-26 15:40 | NUR ---
BLOOD GLUCOSE 424
--- NOTE | 2018-09-26 16:10 | NUR ---
2ND LITER INFUSING
[2018-09-26] MEDS ORDERED: INSULIN REGULAR 100 UNITS/ML, 3ML VIAL SQ-INSULIN ONE (16:30)
[2018-09-26] MEDS ORDERED: INSULIN SINGLE DOSE, ER SQ-INSULIN ONE (17:09)
[2018-09-26] MEDS ORDERED: HYDROcodone/APAP 5/325 TABLET ONE (17:15)
[2018-09-26 17:42] VITALS: BP 174/87
== END 2018-09-26 18:32 | disposition home or self-care (01) ==
LOC: ED 14:53
DX: E11.65 Type 2 diabetes mellitus with hyperglycemia (principal); R06.4 Hyperventilation; R07.89 Other chest pain; E78.00 Pure hypercholesterolemia, unspecified; F41.1 Generalized anxiety disorder; I10 Essential (primary) hypertension; E78.5 Hyperlipidemia, unspecified; R20.2 Paresthesia of skin
CPT/HCPCS: 36415; 71045; 80048; 82040; 82962; 84484; 85025; 93005; 96360; 96361; 96372; 99283; J7030; 99284

== ENCOUNTER 2018-09-29 15:14 | Emergency (ER) | payer OTHER, MEDICAID ==
[~2018-09-29] VITALS: Ht 160 cm; Wt 83.0 kg
[2018-09-29] MEDS ORDERED: SODIUM CHLORIDE 0.9% 1,000ML IVBOLUS ONE (15:30)
--- NOTE | 2018-09-29 15:35 | NUR ---
PT ARRIVED BIB [facility] FOR WEAKNESS AND FATIGUE STARTING THIS AM. PT HAS HX DM2 AND HAS NOT HAD ACCESS TO BOTH INSULIN AND METFORMIN FOR 1 DAY. PT STATES HER BLOOD SUGARS USUALLY RUN IN THE 300S, [facility]. PT C/O NAUSEA AND ACTIVELY DRY HEAVING UPON ARRIVAL. PT AAO X 4 BUT DELAYED TO ANSWER, ON ROOM AIR. VSS BUT PT HYPERTENSIVE SBP 170S. PT DRESSED IN GOWN AND ATTACHED TO MONITOR. CALL LIGHT WITHIN REACH AND SIDERAILS X [address]. 20G PIV IN RIGHT WRIST ESTABLISHED BOILER CLEANER BY EMS AND 100ML NS GIVEN IV. DR. GARCIA AT BEDSIDE FOR EXAM.
--- NOTE | 2018-09-29 15:37 | NUR ---
LAB AT BEDSIDE.
[2018-09-29 15:47] LABS: PH, VENOUS 7.319 pH (7.320-7.420)
[2018-09-29 15:48] LABS: BASOPHILS # (AUTO) 0.02 x10^3/uL (0-0.1); BASOPHILS % (AUTO) 0 % (0-1); EOSINOPHILS % (AUTO) 0 % (1-7); LYMPHOCYTES # (AUTO) 1.45 x10^3/uL (1-3.4); LYMPHOCYTES % (AUTO) 24 % (22-44); MD NO; MEAN CORPUSCULAR HEMOGLOBIN 26.8 pg (27.0-34.8); MEAN CORPUSCULAR VOLUME 83.7 fL (80-100); MEAN PLATELET VOLUME 7.9 fL (7.4-10.4); MONOCYTES # (AUTO) 0.21 x10^3/uL (0.2-0.8); MONOCYTES % (AUTO) 4 % (2-9); NEUTROPHILS # (AUTO) 4.25 x10^3/uL (1.8-6.8); NEUTROPHILS % (AUTO) 72 % (42-75); PLATELET COUNT 305 x10^3/uL (130-400); RED BLOOD COUNT 3.94 x10^6/uL (3.82-5.3); RED CELL DISTRIBUTION WIDTH 14.2 % (9.6-15.2)
[2018-09-29 16:03] LABS: ALANINE AMINOTRANSFERASE 23 U/L (12-78); ALBUMIN 3.2 g/dL (3.4-5.0); ANION GAP 7 mmol/L (5-15); CALCIUM 8.7 mg/dL (8.5-10.1); CHLORIDE 105 mmol/L (98-107)
[2018-09-29 16:06] LABS: ALKALINE PHOSPHATASE 204 U/L (45-117); BILIRUBIN,TOTAL 0.2 mg/dL (0.2-1.0); CREATININE 2.17 mg/dL (0.55-1.02); TOTAL PROTEIN 7.2 g/dL (6.4-8.2)
[2018-09-29 16:26] LABS: ACETONE, SERUM Trace (10mg/dL) mg/dL (Negative)
[2018-09-29] MEDS ORDERED: ENALAPRILAT 1.25 MG/ML, 1ML ONE ×2 (16:39→17:28)
[2018-09-29] MEDS ORDERED: ENALAPRILAT 1.25 MG/ML, 2ML IV ONE ×2 (17:00→17:30)
--- NOTE | 2018-09-29 17:24 | NUR ---
PT STILL HYPERTENSIVE DESPITE MEDICATION ADMINISTRATION, MD UPDATED AND NEW ORDERS RECEIVED.
[2018-09-29 17:25] VITALS: BP 210/92
--- NOTE | 2018-09-29 19:09 | NUR ---
REPORT CALLED TO [facility] [employer] ACCOUNTANTDENISE Bell PT TO TRANSFER WITH JOSÉ MIGUEL AT 1930.
[2018-09-29 19:13] LABS: MICROSCOPIC AUTO
--- NOTE | 2018-09-29 19:26 | NUR ---
REPORT GIVEN TO JOSÉ MIGUEL. PT D/C IN CARE OF [facility] FOR TRANSFER TO [facility] FOR DIRECT ADMIT.
[2018-09-29 19:27] LABS: CULTURE INDICATED? NO
== END 2018-09-29 19:27 | disposition other institution (70) ==
LOC: ED 19:21
DX: E11.65 Type 2 diabetes mellitus with hyperglycemia (principal); I16.0 Hypertensive urgency; E87.2 Acidosis; R11.10 Vomiting, unspecified; E78.00 Pure hypercholesterolemia, unspecified; Z90.49 Acquired absence of other specified parts of digestive tract
CPT/HCPCS: 36415; 80053; 81001; 82010; 82803; 85025; 93005; 96361; 96374; 99283; J7030

== ENCOUNTER 2018-10-26 13:21 | Inpatient (IN) | payer OTHER, MEDICAID ==
[~2018-10-26] VITALS: Ht 160 cm; Wt 97.3 kg
--- NOTE | 2018-10-26 13:56 | NUR ---
task rn: pt to ed after an unknown person sent her a text message saying that she needed to come into the er as soon as possible. pt states she has infected toes on her right foot. pt was seen in [facility] on friday and was prescribed abx at that time. pt states she has been compliant with abx. pt presents with open blisters, erythema and edema on right toes. pt connected to [employer]. vss. edmd to bs for assessment. orders recevied. lab to bs for draw.
[2018-10-26] MEDS ORDERED: VANCOMYCIN PER PHARMACY MC ONE (14:00)
[2018-10-26] MEDS ORDERED: SODIUM CHLORIDE FLUSH 10ML SYR IVF ONE (14:00)
[2018-10-26] MEDS ORDERED: VANCOMYCIN 1,800 MG in SODIUM CHLORIDE 0.9% 250 ML IV ONE (14:00)
[2018-10-26] MEDS ORDERED: PHARMACOKINETIC CONSULTATION MC ONE (14:00)
[2018-10-26] MEDS ORDERED: SODIUM CHLORIDE 0.9% 1,000ML IVBOLUS ONE (14:00)
[2018-10-26 14:19] LABS: BASOPHILS # (AUTO) 0.03 x10^3/uL (0-0.1); BASOPHILS % (AUTO) 0 % (0-1); EOSINOPHILS # (AUTO) 0.12 x10^3/uL (0-0.4); EOSINOPHILS % (AUTO) 1 % (1-7); LYMPHOCYTES # (AUTO) 1.95 x10^3/uL (1-3.4); LYMPHOCYTES % (AUTO) 21 % (22-44); MD NO; MEAN CORPUSCULAR HEMOGLOBIN 27.7 pg (27.0-34.8); MEAN CORPUSCULAR VOLUME 86.5 fL (80-100); MONOCYTES # (AUTO) 0.46 x10^3/uL (0.2-0.8); MONOCYTES % (AUTO) 5 % (2-9); NEUTROPHILS # (AUTO) 6.69 x10^3/uL (1.8-6.8); NEUTROPHILS % (AUTO) 72 % (42-75); PLATELET COUNT 408 x10^3/uL (130-400); RED BLOOD COUNT 3.55 x10^6/uL (3.82-5.3); RED CELL DISTRIBUTION WIDTH 13.9 % (9.6-15.2)
[2018-10-26 14:29] LABS: ALBUMIN 2.7 g/dL (3.4-5.0); ANION GAP 8 mmol/L (5-15); CALCIUM 8.4 mg/dL (8.5-10.1); CHLORIDE 98 mmol/L (98-107); CREATININE 1.82 mg/dL (0.55-1.02)
[2018-10-26] MEDS ORDERED: INSULIN REGULAR 100 UNITS/ML, 3ML VIAL IVPush ONE (15:00)
--- NOTE | 2018-10-26 15:20 | NUR ---
CINDY and rose reyes. Son at bedside. No other needs.
[2018-10-26] MEDS ORDERED: INSULIN SINGLE DOSE, ER SQ-INSULIN ONE (15:22)
[2018-10-26] MEDS ORDERED: hydrALAzine 20 MG/ML, 1ML IVPush PRN (16:30)
[2018-10-26] MEDS ORDERED: DEXTROSE 4 GM TAB.CHEW PO PRN (16:30)
[2018-10-26] MEDS ORDERED: GLUCAGON 1 MG IM PRN (16:30)
[2018-10-26] MEDS ORDERED: ONDANSETRON 2MG/ML, 2ML IVPush PRN (16:30)
[2018-10-26] MEDS ORDERED: DEXTROSE 50%, 50ML SYRINGE IVPush PRN (16:30)
[2018-10-26] MEDS: OXYcodone IR 5MG TABLET PO PRN ×2 (17:20→21:39)
[2018-10-26] MEDS: INSULIN LISPRO 100 UNITS/ML, PEN SQ-INSULIN SCH ×2 (17:43→21:00)
[2018-10-26] MEDS: PIPERACILLIN/TAZO/PMX 2.25GM 50 ML IV SCH (18:18)
[2018-10-26 18:40] VITALS: BP 132/77
[2018-10-26 19:34] LABS: MICROSCOPIC AUTO
[2018-10-26 19:37] LABS: CULTURE INDICATED? NO
[2018-10-26] MEDS ORDERED: INSULIN NPH HUMAN 100 UNIT/ML, 3ML VIAL SQ-INSULIN SCH (21:00)
[2018-10-26] MEDS: SODIUM CHLORIDE FLUSH 10ML SYR IVF SCH (21:39)
[2018-10-26] MEDS: PANTOPROZOLE 40MG TABLET PO SCH (21:39)
[2018-10-26] MEDS: GABAPENTIN 300 MG CAPSULE PO SCH (21:39)
[2018-10-26] MEDS: LOSARTAN 50MG TABLET PO SCH (21:40)
[2018-10-26] MEDS: ATORVASTATIN 40 MG TABLET PO SCH (21:40)
[2018-10-26] MEDS: INSULIN GLARGINE 100 UNITS/ML, PEN SQ-INSULIN SCH (23:15)
[2018-10-27 01:10] VITALS: BP 127/72
[2018-10-27] MEDS: PIPERACILLIN/TAZO/PMX 2.25GM 50 ML IV SCH ×3 (01:50→18:00)
[2018-10-27] MEDS: OXYcodone IR 5MG TABLET PO PRN ×3 (04:29→19:55)
[2018-10-27 05:09] LABS: BASOPHILS # (AUTO) 0.04 x10^3/uL (0-0.1); BASOPHILS % (AUTO) 0 % (0-1); EOSINOPHILS % (AUTO) 1 % (1-7); LYMPHOCYTES # (AUTO) 2.21 x10^3/uL (1-3.4); LYMPHOCYTES % (AUTO) 25 % (22-44); MD NO; MEAN CORPUSCULAR HEMOGLOBIN 27.1 pg (27.0-34.8); MEAN CORPUSCULAR HGB CONC 31.6 g/dL (32.4-35.8); MEAN CORPUSCULAR VOLUME 85.9 fL (80-100); MEAN PLATELET VOLUME 7.9 fL (7.4-10.4); MONOCYTES # (AUTO) 0.42 x10^3/uL (0.2-0.8); MONOCYTES % (AUTO) 5 % (2-9); NEUTROPHILS # (AUTO) 6.13 x10^3/uL (1.8-6.8); NEUTROPHILS % (AUTO) 69 % (42-75); PLATELET COUNT 398 x10^3/uL (130-400); RED BLOOD COUNT 3.83 x10^6/uL (3.82-5.3); RED CELL DISTRIBUTION WIDTH 13.8 % (9.6-15.2)
[2018-10-27 05:22] LABS: ANION GAP 6 mmol/L (5-15); CALCIUM 8.6 mg/dL (8.5-10.1); CHLORIDE 101 mmol/L (98-107)
[2018-10-27 05:24] LABS: CREATININE 1.52 mg/dL (0.55-1.02)
[2018-10-27 06:25] VITALS: BP 128/71
[2018-10-27] MEDS ORDERED: INSULIN GLARGINE 100 UNITS/ML, PEN SQ-INSULIN SCH (07:30)
[2018-10-27] MEDS: INSULIN LISPRO 100 UNITS/ML, PEN SQ-INSULIN SCH ×7 (07:53→21:50)
[2018-10-27] MEDS: CITALOPRAM 20 MG TABLET PO SCH (07:59)
[2018-10-27] MEDS: LOSARTAN 50MG TABLET PO SCH ×2 (07:59→19:55)
[2018-10-27] MEDS: GABAPENTIN 300 MG CAPSULE PO SCH ×3 (07:59→19:56)
[2018-10-27] MEDS: SODIUM CHLORIDE FLUSH 10ML SYR IVF SCH ×2 (07:59→21:00)
[2018-10-27] MEDS: PANTOPROZOLE 40MG TABLET PO SCH ×2 (08:00→19:56)
[2018-10-27] MEDS ORDERED: INSULIN DETEMIR 36 UNIT SC SCH (09:00)
[2018-10-27 12:35] VITALS: BP 122/68
[2018-10-27 18:49] VITALS: BP 117/69
[2018-10-27] MEDS: ATORVASTATIN 40 MG TABLET PO SCH (19:55)
[2018-10-27] MEDS: INSULIN GLARGINE 100 UNITS/ML, PEN SQ-INSULIN SCH (21:50)
[2018-10-27] MEDS: METHOCARBAMOL 750 MG TABLET PO PRN (21:51)
[2018-10-28] MEDS: PIPERACILLIN/TAZO/PMX 2.25GM 50 ML IV SCH ×4 (02:00→23:26)
[2018-10-28 04:10] VITALS: BP 108/62
[2018-10-28] MEDS ORDERED: BUPIVACAINE/PF 0.5% ONE ×2 (06:11→06:59)
[2018-10-28] MEDS ORDERED: FENTANYL PF 100 MCG/2ML ONE (06:51)
[2018-10-28] MEDS ORDERED: LIDOCAINE GEL 2%, 5ML ONE ×2 (06:51→07:14)
[2018-10-28] MEDS ORDERED: hydrALAzine 20 MG/ML, 1ML IV PRN (07:00)
[2018-10-28] MEDS ORDERED: MEPERIDINE/PF 25MG/ML,1ML IVPush PRN (07:00)
[2018-10-28] MEDS ORDERED: PROMETHAZINE 25 MG/ML, 1ML IV PRN (07:00)
[2018-10-28] MEDS ORDERED: FENTANYL PF 100 MCG/2ML IV PRN (07:00)
[2018-10-28] MEDS ORDERED: OXYcodone 5 MG/5 ML ORAL.SOL UDC PO PRN (07:00)
[2018-10-28] MEDS ORDERED: MIDAZOLAM 1 MG/ML, 2ML IV PRN (07:00)
[2018-10-28] MEDS ORDERED: METOPROLOL 1 MG/ML, 5ML IV PRN (07:00)
[2018-10-28] MEDS ORDERED: ACETAMINOPHEN 325 MG TABLET PO PRN (07:00)
[2018-10-28] MEDS ORDERED: ONDANSETRON 2MG/ML, 2ML IV PRN (07:00)
[2018-10-28] MEDS ORDERED: ALBUTEROL/IPRATROPIUM 2.5MG/0.5MG, 3 ML NPPB PRN (07:00)
[2018-10-28] MEDS ORDERED: FENTANYL PF 250 MCG/5ML ONE (08:46)
[2018-10-28] MEDS ORDERED: INSULIN GLARGINE 100 UNITS/ML, PEN SQ-INSULIN SCH (09:00)
[2018-10-28 09:30] LABS: BASOPHILS # (AUTO) 0.03 x10^3/uL (0-0.1); BASOPHILS % (AUTO) 0 % (0-1); EOSINOPHILS # (AUTO) 0.03 x10^3/uL (0-0.4); EOSINOPHILS % (AUTO) 0 % (1-7); LYMPHOCYTES # (AUTO) 0.99 x10^3/uL (1-3.4); LYMPHOCYTES % (AUTO) 12 % (22-44); MD NO; MEAN CORPUSCULAR HEMOGLOBIN 27.1 pg (27.0-34.8); MEAN CORPUSCULAR HGB CONC 31.9 g/dL (32.4-35.8); MEAN CORPUSCULAR VOLUME 84.9 fL (80-100); MEAN PLATELET VOLUME 7.6 fL (7.4-10.4); MONOCYTES # (AUTO) 0.11 x10^3/uL (0.2-0.8); MONOCYTES % (AUTO) 1 % (2-9); NEUTROPHILS # (AUTO) 7.06 x10^3/uL (1.8-6.8); NEUTROPHILS % (AUTO) 86 % (42-75); PLATELET COUNT 404 x10^3/uL (130-400); RED BLOOD COUNT 3.85 x10^6/uL (3.82-5.3); RED CELL DISTRIBUTION WIDTH 13.9 % (9.6-15.2)
[2018-10-28 09:36] LABS: ANION GAP 7 mmol/L (5-15); CALCIUM 8.6 mg/dL (8.5-10.1); CHLORIDE 100 mmol/L (98-107)
[2018-10-28 09:42] VITALS: BP 147/78
[2018-10-28] MEDS: CITALOPRAM 20 MG TABLET PO SCH (09:42)
[2018-10-28] MEDS: GABAPENTIN 300 MG CAPSULE PO SCH ×3 (09:42→20:44)
[2018-10-28] MEDS: PANTOPROZOLE 40MG TABLET PO SCH ×2 (09:42→20:45)
[2018-10-28] MEDS: LOSARTAN 50MG TABLET PO SCH ×2 (09:43→20:45)
[2018-10-28] MEDS: INSULIN LISPRO 100 UNITS/ML, PEN SQ-INSULIN SCH ×7 (09:44→21:30)
[2018-10-28] MEDS ORDERED: MORPHINE SULFATE 4 MG/ML, 1ML ONE (09:59)
[2018-10-28] MEDS: SODIUM CHLORIDE FLUSH 10ML SYR IVF SCH ×2 (10:02→20:44)
[2018-10-28] MEDS ORDERED: DEXAMETHASONE 4 MG/ML, 1ML ONE (10:26)
[2018-10-28] MEDS ORDERED: ONDANSETRON 2MG/ML, 2ML ONE (10:26)
[2018-10-28] MEDS ORDERED: PROPOFOL 10 MG/ML, 20ML ONE (10:26)
[2018-10-28] MEDS: OXYcodone IR 5MG TABLET PO PRN (16:27)
[2018-10-28] MEDS ORDERED: VANCOMYCIN PER PHARMACY MC PRN (17:30)
[2018-10-28] MEDS ORDERED: PHARMACOKINETIC MONITORING MC PRN (18:00)
[2018-10-28] MEDS ORDERED: VANCOMYCIN 1,400 MG in SODIUM CHLORIDE 0.9% 250 ML IV SCH (18:00)
[2018-10-28] MEDS ORDERED: PHARMACOKINETIC CONSULTATION MC ONE (18:00)
[2018-10-28 18:50] VITALS: BP 162/74
[2018-10-28] MEDS: VANCOMYCIN 1,400 MG in SODIUM CHLORIDE 0.9% 250 ML IV SCH (20:44)
[2018-10-28] MEDS: ATORVASTATIN 40 MG TABLET PO SCH (20:45)
[2018-10-28] MEDS: INSULIN GLARGINE 100 UNITS/ML, PEN SQ-INSULIN SCH (21:29)
[2018-10-28 23:31] VITALS: BP 158/83
[2018-10-29] MEDS: OXYcodone IR 5MG TABLET PO PRN ×2 (00:36→15:25)
[2018-10-29 03:14] VITALS: BP 144/76
[2018-10-29] MEDS: PIPERACILLIN/TAZO/PMX 2.25GM 50 ML IV SCH ×4 (05:00→23:15)
[2018-10-29 05:53] LABS: BASOPHILS # (AUTO) 0.03 x10^3/uL (0-0.1); BASOPHILS % (AUTO) 0 % (0-1); EOSINOPHILS # (AUTO) 0.09 x10^3/uL (0-0.4); EOSINOPHILS % (AUTO) 1 % (1-7); LYMPHOCYTES % (AUTO) 19 % (22-44); MD NO; MEAN CORPUSCULAR HEMOGLOBIN 27.4 pg (27.0-34.8); MEAN CORPUSCULAR HGB CONC 31.7 g/dL (32.4-35.8); MEAN CORPUSCULAR VOLUME 86.6 fL (80-100); MEAN PLATELET VOLUME 7.7 fL (7.4-10.4); MONOCYTES % (AUTO) 5 % (2-9); NEUTROPHILS # (AUTO) 6.74 x10^3/uL (1.8-6.8); NEUTROPHILS % (AUTO) 75 % (42-75); PLATELET COUNT 438 x10^3/uL (130-400); RED BLOOD COUNT 3.77 x10^6/uL (3.82-5.3); RED CELL DISTRIBUTION WIDTH 13.4 % (9.6-15.2)
[2018-10-29 05:57] LABS: ANION GAP 7 mmol/L (5-15); CALCIUM 8.8 mg/dL (8.5-10.1); CHLORIDE 98 mmol/L (98-107); CREATININE 1.75 mg/dL (0.55-1.02)
[2018-10-29 07:10] VITALS: BP 141/77
[2018-10-29] MEDS: INSULIN LISPRO 100 UNITS/ML, PEN SQ-INSULIN SCH ×7 (07:12→21:53)
[2018-10-29] MEDS: GABAPENTIN 300 MG CAPSULE PO SCH ×3 (08:08→21:39)
[2018-10-29] MEDS: AMLODIPINE 5 MG TABLET PO SCH (08:08)
[2018-10-29] MEDS: PANTOPROZOLE 40MG TABLET PO SCH ×2 (08:08→21:40)
[2018-10-29] MEDS: CITALOPRAM 20 MG TABLET PO SCH (08:08)
[2018-10-29] MEDS: LOSARTAN 50MG TABLET PO SCH (08:12)
[2018-10-29] MEDS: SODIUM CHLORIDE FLUSH 10ML SYR IVF SCH ×2 (08:12→21:40)
[2018-10-29] MEDS ORDERED: INSULIN GLARGINE 100 UNITS/ML, PEN SQ-INSULIN SCH ×3 (09:00)
[2018-10-29] MEDS ORDERED: CEPHALEXIN 500 MG CAPSULE PO SCH (09:00)
[2018-10-29] MEDS: DULOXETINE 20 MG CAPSULE.DR PO SCH ×2 (09:14→21:39)
[2018-10-29] MEDS: DOXYCYCLINE 100MG TABLET PO SCH ×2 (09:14→21:39)
[2018-10-29] MEDS ORDERED: SODIUM CHLORIDE 0.9%, 500ML IVBOLUS ONE (11:30)
[2018-10-29 14:07] VITALS: BP 117/66
[2018-10-29 19:53] VITALS: BP 105/69
[2018-10-29] MEDS: ATORVASTATIN 40 MG TABLET PO SCH (21:39)
[2018-10-29] MEDS: VANCOMYCIN 1,400 MG in SODIUM CHLORIDE 0.9% 250 ML IV SCH (21:39)
[2018-10-29] MEDS: INSULIN GLARGINE 100 UNITS/ML, PEN SQ-INSULIN SCH (21:52)
[2018-10-30 02:25] VITALS: BP 123/72
[2018-10-30] MEDS: PIPERACILLIN/TAZO/PMX 2.25GM 50 ML IV SCH ×2 (05:16→11:15)
[2018-10-30] MEDS ORDERED: INSULIN LISPRO 100 UNITS/ML, PEN SQ-INSULIN SCH (07:00)
[2018-10-30 07:02] LABS: BASOPHILS # (AUTO) 0.04 x10^3/uL (0-0.1); BASOPHILS % (AUTO) 1 % (0-1); EOSINOPHILS % (AUTO) 1 % (1-7); LYMPHOCYTES % (AUTO) 28 % (22-44); MD NO; MEAN CORPUSCULAR HEMOGLOBIN 27.1 pg (27.0-34.8); MEAN CORPUSCULAR HGB CONC 31.5 g/dL (32.4-35.8); MEAN PLATELET VOLUME 7.4 fL (7.4-10.4); MONOCYTES # (AUTO) 0.32 x10^3/uL (0.2-0.8); MONOCYTES % (AUTO) 4 % (2-9); NEUTROPHILS % (AUTO) 66 % (42-75); PLATELET COUNT 429 x10^3/uL (130-400); RED BLOOD COUNT 3.49 x10^6/uL (3.82-5.3); RED CELL DISTRIBUTION WIDTH 13.8 % (9.6-15.2)
[2018-10-30 07:12] LABS: ANION GAP 5 mmol/L (5-15); CALCIUM 8.5 mg/dL (8.5-10.1); CHLORIDE 100 mmol/L (98-107); CREATININE 1.55 mg/dL (0.55-1.02)
[2018-10-30] MEDS: INSULIN LISPRO 100 UNITS/ML, PEN SQ-INSULIN SCH ×7 (07:17→21:00)
[2018-10-30 07:31] VITALS: BP 125/76
[2018-10-30] MEDS: INSULIN GLARGINE 100 UNITS/ML, PEN SQ-INSULIN SCH ×2 (07:55→21:00)
[2018-10-30] MEDS: DULOXETINE 20 MG CAPSULE.DR PO SCH ×2 (08:51→21:00)
[2018-10-30] MEDS: AMLODIPINE 5 MG TABLET PO SCH (08:51)
[2018-10-30] MEDS: PANTOPROZOLE 40MG TABLET PO SCH ×2 (08:51→21:00)
[2018-10-30] MEDS: DOXYCYCLINE 100MG TABLET PO SCH (08:51)
[2018-10-30] MEDS: GABAPENTIN 300 MG CAPSULE PO SCH ×3 (08:51→21:00)
[2018-10-30] MEDS: SODIUM CHLORIDE FLUSH 10ML SYR IVF SCH ×2 (08:52→21:00)
[2018-10-30] MEDS ORDERED: INSULIN LISPRO 100 UNIT/ML, 3ML VIAL SQ-INSULIN ONE (13:00)
[2018-10-30] MEDS: OXYcodone IR 5MG TABLET PO PRN (14:05)
[2018-10-30 14:33] VITALS: BP 112/70
[2018-10-30] MEDS ORDERED: VANCOMYCIN PER PHARMACY MC PRN (15:00)
[2018-10-30] MEDS: HEPARIN 5,000 UNITS/ML, 1ML SQ SCH (16:12)
[2018-10-30] MEDS: AMPICILLIN/SULBACTAM 3 GM in SODIUM CHLORIDE 0.9% 100 ML IV SCH (16:20)
[2018-10-30] MEDS ORDERED: PIPERACILLIN/TAZO/PMX 3.375GM 50 ML IV SCH (17:00)
[2018-10-30] MEDS: VANCOMYCIN 1,400 MG in SODIUM CHLORIDE 0.9% 250 ML IV SCH (21:00)
[2018-10-30] MEDS: ATORVASTATIN 40 MG TABLET PO SCH (21:00)
[2018-10-31] MEDS: HEPARIN 5,000 UNITS/ML, 1ML SQ SCH ×3 (00:26→16:30)
[2018-10-31] MEDS: AMPICILLIN/SULBACTAM 3 GM in SODIUM CHLORIDE 0.9% 100 ML IV SCH ×3 (00:26→16:28)
[2018-10-31 02:09] VITALS: BP 117/74
[2018-10-31] MEDS: OXYcodone IR 5MG TABLET PO PRN ×3 (04:50→21:54)
[2018-10-31 06:45] VITALS: BP 140/81
[2018-10-31] MEDS: INSULIN LISPRO 100 UNITS/ML, PEN SQ-INSULIN SCH ×7 (07:00→21:00)
[2018-10-31 07:44] LABS: ANION GAP 8 mmol/L (5-15); CALCIUM 8.3 mg/dL (8.5-10.1); CHLORIDE 103 mmol/L (98-107); CREATININE 1.31 mg/dL (0.55-1.02)
[2018-10-31] MEDS: METHOCARBAMOL 750 MG TABLET PO PRN (07:56)
[2018-10-31] MEDS: AMLODIPINE 5 MG TABLET PO SCH (07:57)
[2018-10-31] MEDS: GABAPENTIN 300 MG CAPSULE PO SCH ×3 (07:57→21:55)
[2018-10-31] MEDS: PANTOPROZOLE 40MG TABLET PO SCH ×2 (07:57→21:54)
[2018-10-31] MEDS: DULOXETINE 20 MG CAPSULE.DR PO SCH (07:57)
[2018-10-31] MEDS: SODIUM CHLORIDE FLUSH 10ML SYR IVF SCH ×2 (07:58→21:55)
[2018-10-31] MEDS: INSULIN GLARGINE 100 UNITS/ML, PEN SQ-INSULIN SCH ×2 (07:59→21:53)
[2018-10-31 12:31] VITALS: BP 144/78
[2018-10-31] MEDS ORDERED: DULOXETINE 20 MG CAPSULE.DR ONE (12:55)
[2018-10-31] MEDS: DULOXETINE 30 MG CAPSULE.DR PO SCH (13:00)
[2018-10-31 19:43] VITALS: BP 118/72
[2018-10-31] MEDS: VANCOMYCIN 1,400 MG in SODIUM CHLORIDE 0.9% 250 ML IV SCH (21:53)
[2018-10-31] MEDS: ATORVASTATIN 40 MG TABLET PO SCH (21:54)
[2018-10-31] MEDS: ACETAMINOPHEN 325 MG TABLET PO PRN (21:55)
[2018-11-01] MEDS: HEPARIN 5,000 UNITS/ML, 1ML SQ SCH ×3 (00:16→16:24)
[2018-11-01] MEDS: AMPICILLIN/SULBACTAM 3 GM in SODIUM CHLORIDE 0.9% 100 ML IV SCH ×3 (00:16→16:22)
[2018-11-01 02:17] VITALS: BP 121/75
[2018-11-01] MEDS ORDERED: INSULIN LISPRO 100 UNITS/ML, PEN SQ-INSULIN SCH (07:00)
[2018-11-01 07:29] VITALS: BP 145/68
[2018-11-01] MEDS: DULOXETINE 30 MG CAPSULE.DR PO SCH (08:07)
[2018-11-01] MEDS: GABAPENTIN 300 MG CAPSULE PO SCH ×3 (08:08→20:06)
[2018-11-01] MEDS: AMLODIPINE 5 MG TABLET PO SCH (08:08)
[2018-11-01] MEDS: PANTOPROZOLE 40MG TABLET PO SCH ×2 (08:08→20:21)
[2018-11-01] MEDS: INSULIN LISPRO 100 UNITS/ML, PEN SQ-INSULIN SCH ×7 (08:09→20:23)
[2018-11-01] MEDS: INSULIN GLARGINE 100 UNITS/ML, PEN SQ-INSULIN SCH ×2 (08:09→20:24)
[2018-11-01] MEDS: SODIUM CHLORIDE FLUSH 10ML SYR IVF SCH ×2 (08:12→20:06)
[2018-11-01 15:40] VITALS: BP 133/75
[2018-11-01] MEDS: ACETAMINOPHEN 325 MG TABLET PO PRN ×2 (16:26→20:21)
[2018-11-01 18:41] VITALS: BP 121/78
[2018-11-01] MEDS: ATORVASTATIN 40 MG TABLET PO SCH (20:06)
[2018-11-01] MEDS: VANCOMYCIN 1,400 MG in SODIUM CHLORIDE 0.9% 250 ML IV SCH (20:21)
[2018-11-01] MEDS: OXYcodone IR 5MG TABLET PO PRN (20:22)
[2018-11-02 00:10] VITALS: BP 106/70
[2018-11-02] MEDS: AMPICILLIN/SULBACTAM 3 GM in SODIUM CHLORIDE 0.9% 100 ML IV SCH ×3 (00:24→16:06)
[2018-11-02] MEDS: HEPARIN 5,000 UNITS/ML, 1ML SQ SCH ×3 (00:25→16:06)
[2018-11-02] MEDS: OXYcodone IR 5MG TABLET PO PRN (00:28)
[2018-11-02 06:53] VITALS: BP 115/76
[2018-11-02] MEDS: GABAPENTIN 300 MG CAPSULE PO SCH ×3 (07:30→20:42)
[2018-11-02] MEDS: DULOXETINE 30 MG CAPSULE.DR PO SCH (07:31)
[2018-11-02] MEDS: PANTOPROZOLE 40MG TABLET PO SCH ×2 (07:31→20:29)
[2018-11-02] MEDS: INSULIN LISPRO 100 UNITS/ML, PEN SQ-INSULIN SCH ×7 (07:32→20:43)
[2018-11-02] MEDS: INSULIN GLARGINE 100 UNITS/ML, PEN SQ-INSULIN SCH ×2 (07:32→20:44)
[2018-11-02] MEDS: SODIUM CHLORIDE FLUSH 10ML SYR IVF SCH ×2 (07:34→20:44)
[2018-11-02] MEDS: AMLODIPINE 5 MG TABLET PO SCH (07:40)
[2018-11-02 08:11] LABS: CHLORIDE 101 mmol/L (98-107)
[2018-11-02 08:18] LABS: ANION GAP 5 mmol/L (5-15); CALCIUM 8.6 mg/dL (8.5-10.1); CREATININE 1.44 mg/dL (0.55-1.02)
[2018-11-02 08:19] LABS: ALANINE AMINOTRANSFERASE 15 U/L (12-78); ALBUMIN 2.6 g/dL (3.4-5.0); ALKALINE PHOSPHATASE 172 U/L (45-117); BILIRUBIN,TOTAL 0.2 mg/dL (0.2-1.0); TOTAL PROTEIN 6.5 g/dL (6.4-8.2)
[2018-11-02 08:46] LABS: BASOPHILS # (AUTO) 0.03 x10^3/uL (0-0.1); BASOPHILS % (AUTO) 1 % (0-1); EOSINOPHILS # (AUTO) 0.08 x10^3/uL (0-0.4); EOSINOPHILS % (AUTO) 1 % (1-7); LYMPHOCYTES # (AUTO) 1.94 x10^3/uL (1-3.4); LYMPHOCYTES % (AUTO) 27 % (22-44); MD NO; MEAN CORPUSCULAR HEMOGLOBIN 27.2 pg (27.0-34.8); MEAN CORPUSCULAR HGB CONC 32.1 g/dL (32.4-35.8); MEAN CORPUSCULAR VOLUME 84.7 fL (80-100); MEAN PLATELET VOLUME 7.2 fL (7.4-10.4); MONOCYTES # (AUTO) 0.35 x10^3/uL (0.2-0.8); MONOCYTES % (AUTO) 5 % (2-9); NEUTROPHILS # (AUTO) 4.71 x10^3/uL (1.8-6.8); NEUTROPHILS % (AUTO) 66 % (42-75); PLATELET COUNT 470 x10^3/uL (130-400); RED BLOOD COUNT 3.77 x10^6/uL (3.82-5.3); RED CELL DISTRIBUTION WIDTH 13.6 % (9.6-15.2)
[2018-11-02 12:07] VITALS: BP 110/67
[2018-11-02 19:14] VITALS: BP 134/79
[2018-11-02] MEDS: ACETAMINOPHEN 325 MG TABLET PO PRN (20:29)
[2018-11-02] MEDS: METHOCARBAMOL 750 MG TABLET PO PRN (20:29)
[2018-11-02] MEDS: ATORVASTATIN 40 MG TABLET PO SCH (20:30)
[2018-11-02] MEDS: VANCOMYCIN 1,400 MG in SODIUM CHLORIDE 0.9% 250 ML IV SCH (20:42)
[2018-11-03] MEDS: AMPICILLIN/SULBACTAM 3 GM in SODIUM CHLORIDE 0.9% 100 ML IV SCH ×2 (00:37→08:40)
[2018-11-03] MEDS: HEPARIN 5,000 UNITS/ML, 1ML SQ SCH ×3 (00:37→16:16)
[2018-11-03 00:38] VITALS: BP 134/77
[2018-11-03 06:14] LABS: BASOPHILS # (AUTO) 0.04 x10^3/uL (0-0.1); BASOPHILS % (AUTO) 1 % (0-1); EOSINOPHILS # (AUTO) 0.09 x10^3/uL (0-0.4); EOSINOPHILS % (AUTO) 1 % (1-7); LYMPHOCYTES # (AUTO) 1.81 x10^3/uL (1-3.4); LYMPHOCYTES % (AUTO) 26 % (22-44); MD NO; MEAN CORPUSCULAR HEMOGLOBIN 27.6 pg (27.0-34.8); MEAN CORPUSCULAR VOLUME 86.3 fL (80-100); MEAN PLATELET VOLUME 7.9 fL (7.4-10.4); MONOCYTES # (AUTO) 0.35 x10^3/uL (0.2-0.8); MONOCYTES % (AUTO) 5 % (2-9); NEUTROPHILS # (AUTO) 4.71 x10^3/uL (1.8-6.8); NEUTROPHILS % (AUTO) 67 % (42-75); PLATELET COUNT 446 x10^3/uL (130-400); RED BLOOD COUNT 3.45 x10^6/uL (3.82-5.3)
[2018-11-03 06:23] LABS: ANION GAP 7 mmol/L (5-15); CALCIUM 8.4 mg/dL (8.5-10.1); CHLORIDE 104 mmol/L (98-107); CREATININE 1.46 mg/dL (0.55-1.02)
[2018-11-03 06:45] VITALS: BP 151/83
[2018-11-03 08:37] VITALS: BP 149/82
[2018-11-03] MEDS: INSULIN GLARGINE 100 UNITS/ML, PEN SQ-INSULIN SCH ×2 (08:38→22:39)
[2018-11-03] MEDS: PANTOPROZOLE 40MG TABLET PO SCH ×2 (08:39→22:39)
[2018-11-03] MEDS: GABAPENTIN 300 MG CAPSULE PO SCH ×3 (08:39→20:30)
[2018-11-03] MEDS: INSULIN LISPRO 100 UNITS/ML, PEN SQ-INSULIN SCH ×7 (08:39→22:40)
[2018-11-03] MEDS: DULOXETINE 30 MG CAPSULE.DR PO SCH (08:39)
[2018-11-03] MEDS: AMLODIPINE 5 MG TABLET PO SCH (08:39)
[2018-11-03] MEDS: ACETAMINOPHEN 325 MG TABLET PO PRN ×3 (08:39→20:30)
[2018-11-03] MEDS: SODIUM CHLORIDE FLUSH 10ML SYR IVF SCH ×2 (08:39→22:40)
[2018-11-03 12:33] VITALS: BP 149/75
[2018-11-03 18:46] VITALS: BP 137/81
[2018-11-03] MEDS: DOXYCYCLINE 100MG TABLET PO SCH (20:30)
[2018-11-03] MEDS: OXYcodone IR 5MG TABLET PO PRN (20:30)
[2018-11-03] MEDS: AMOXICILLIN/CLAV 875-125MG TABLET PO SCH (20:30)
[2018-11-03] MEDS: ATORVASTATIN 40 MG TABLET PO SCH (20:31)
[2018-11-03 20:45] VITALS: BP 105/73
[2018-11-04] MEDS: HEPARIN 5,000 UNITS/ML, 1ML SQ SCH ×3 (00:44→16:00)
[2018-11-04 00:46] VITALS: BP 154/87
[2018-11-04 05:22] LABS: BASOPHILS # (AUTO) 0.02 x10^3/uL (0-0.1); BASOPHILS % (AUTO) 0 % (0-1); EOSINOPHILS # (AUTO) 0.15 x10^3/uL (0-0.4); EOSINOPHILS % (AUTO) 2 % (1-7); LYMPHOCYTES # (AUTO) 1.91 x10^3/uL (1-3.4); LYMPHOCYTES % (AUTO) 29 % (22-44); MD NO; MEAN CORPUSCULAR HEMOGLOBIN 27.6 pg (27.0-34.8); MEAN CORPUSCULAR VOLUME 86.3 fL (80-100); MONOCYTES # (AUTO) 0.34 x10^3/uL (0.2-0.8); MONOCYTES % (AUTO) 5 % (2-9); NEUTROPHILS # (AUTO) 4.11 x10^3/uL (1.8-6.8); NEUTROPHILS % (AUTO) 63 % (42-75); PLATELET COUNT 452 x10^3/uL (130-400); RED BLOOD COUNT 3.42 x10^6/uL (3.82-5.3); RED CELL DISTRIBUTION WIDTH 14.1 % (9.6-15.2)
[2018-11-04 05:33] LABS: ANION GAP 4 mmol/L (5-15); CALCIUM 8.5 mg/dL (8.5-10.1); CHLORIDE 101 mmol/L (98-107); CREATININE 1.45 mg/dL (0.55-1.02)
[2018-11-04 07:20] VITALS: BP 154/84
[2018-11-04] MEDS: INSULIN LISPRO 100 UNITS/ML, PEN SQ-INSULIN SCH ×6 (07:30→16:00)
[2018-11-04] MEDS: INSULIN GLARGINE 100 UNITS/ML, PEN SQ-INSULIN SCH (07:45)
[2018-11-04] MEDS: GABAPENTIN 300 MG CAPSULE PO SCH ×2 (07:48→16:00)
[2018-11-04] MEDS: AMOXICILLIN/CLAV 875-125MG TABLET PO SCH (07:49)
[2018-11-04] MEDS: PANTOPROZOLE 40MG TABLET PO SCH (07:49)
[2018-11-04] MEDS: DULOXETINE 30 MG CAPSULE.DR PO SCH (07:49)
[2018-11-04] MEDS: AMLODIPINE 5 MG TABLET PO SCH (07:49)
[2018-11-04] MEDS: SODIUM CHLORIDE FLUSH 10ML SYR IVF SCH (07:53)
[2018-11-04] MEDS: DOXYCYCLINE 100MG TABLET PO SCH (07:56)
[2018-11-04] MEDS: ACETAMINOPHEN 325 MG TABLET PO PRN (13:54)
[2018-11-04 15:45] VITALS: BP 144/68
[2018-11-04] MEDS ORDERED: DULO30CA2 PO (16:07)
[2018-11-04] MEDS ORDERED: INSU100I13 SQ-INSULIN ×2 (16:07)
[2018-11-04] MEDS ORDERED: HYDR-3342 PO (16:07)
[2018-11-04] MEDS ORDERED: AMLO-150 PO (16:07)
[2018-11-04] MEDS ORDERED: AMOX1TAB12 PO (16:07)
[2018-11-04] MEDS ORDERED: ACET325T26 PO (16:07)
[2018-11-04] MEDS ORDERED: METH750T2 PO (16:07)
[2018-11-04] MEDS ORDERED: INSU100I11 SQ-INSULIN ×2 (16:07)
[2018-11-04] MEDS ORDERED: HYDR-826 PO (16:07)
[2018-11-04] MEDS ORDERED: DOXY100T PO (16:07)
[2018-11-04] MEDS ORDERED: ATOR40TA78 PO (16:07)
[2018-11-04] MEDS ORDERED: GABA300C10 PO (16:07)
== END 2018-11-04 16:40 | DRG 617 ==
LOC: ED 13:53 → EDIP 15:34 → 3N 16:39 → 4NE 10-28 08:32
PROVIDERS: ADMIT Internal Medicine; ATTEND Internal Medicine
PROC: 0Y6T0Z1 Detachment at Right 3rd Toe, High, Open Approach (ICD-10-PCS; principal; 2018-10-28 07:00)
DX: E11.69 Type 2 diabetes mellitus with other specified complication (principal); M86.171 Other acute osteomyelitis, right ankle and foot; E87.1 Hypo-osmolality and hyponatremia; E46 Unspecified protein-calorie malnutrition; L03.115 Cellulitis of right lower limb; N17.0 Acute kidney failure with tubular necrosis; L97.511 Non-pressure chronic ulcer of other part of right foot limited to breakdown of skin; E11.65 Type 2 diabetes mellitus with hyperglycemia; K21.9 Gastro-esophageal reflux disease without esophagitis; N18.3 Chronic kidney disease, stage 3 (moderate); I12.9 Hypertensive chronic kidney disease with stage 1 through stage 4 chronic kidney disease, or unspecified chronic kidney disease; E66.9 Obesity, unspecified; B95.62 Methicillin resistant Staphylococcus aureus infection as the cause of diseases classified elsewhere; D63.8 Anemia in other chronic diseases classified elsewhere; E11.22 Type 2 diabetes mellitus with diabetic chronic kidney disease; E78.00 Pure hypercholesterolemia, unspecified; E78.5 Hyperlipidemia, unspecified; F12.90 Cannabis use, unspecified, uncomplicated; F17.210 Nicotine dependence, cigarettes, uncomplicated; E11.42 Type 2 diabetes mellitus with diabetic polyneuropathy; E11.621 Type 2 diabetes mellitus with foot ulcer; L97.509 Non-pressure chronic ulcer of other part of unspecified foot with unspecified severity; M21.371 Foot drop, right foot; Z68.38 Body mass index [BMI] 38.0-38.9, adult; Z59.0 Homelessness; Z63.8 Other specified problems related to primary support group; Z79.4 Long term (current) use of insulin; Z83.3 Family history of diabetes mellitus; Z86.19 Personal history of other infectious and parasitic diseases
CPT/HCPCS: 36415; 76770; 80048; 80053; 80202; 81001; 82040; 82947; 82962; 83605; 83735; 84100; 84145; 85025; 87040; 87070; 87075; 87076; 87077; 87147; 87176; 87186; 87205; 88305; 88311; 96365; 96375; G0378; J0295; J1100; J1644; J1815; J2405; J2543; J2704; J3010; J3370; J2270; J7030; J7040; J7050

== ENCOUNTER 2019-01-14 09:17 | Emergency (ER) | payer OTHER, MEDICAID ==
[~2019-01-14] VITALS: Ht 160 cm; Wt 79.5 kg
[~2019-01-14 09:17] MED LIST changes: +ACET325T26 PO; +AMLO-150 PO; +AMOX1TAB12 PO; +DOXY100T PO; +DULO30CA2 PO; +GABA300C10 PO; +INSU100I11 SQ-INSULIN; +OMEP40CA42 PO; -OMEP40CA6 PO
--- NOTE | 2019-01-14 09:36 | NUR ---
FIRST CONTACT WITH PT. PT C/O NECK PAIN STARTED 4 DAYS AGO. MIDLINE. SENSITIVE TO TOUCH, 11/03. DENIES TRAUMA/INJURY. ALWAYS IN WHEELCHAIR. PT'S AOX4. RESPS EVEN AND UNLABORED.
--- NOTE | 2019-01-14 09:58 | NUR ---
REPORT GIVEN TO BIGG WALKER.
--- NOTE | 2019-01-14 10:00 | NUR ---
PT MOVED FROM [facility] TO RM 23. REPORT RECEIVED FROM GORAN WALKER. PT UNABLE TO ANSWER QUESTIONS AT THIS TIME. MUMBLING "MY NECK, MY NECK, MY HEAD, MY HEAD" AND HOLDING HEAD. CT ORDERED, CALLED REGARDING AVAILABILITY. PT NOT FOLLOWING COMMANDS, MOVES ALL EXTREMITIES, NO FACIAL DROOP. SEGUN WITH PUPIL SIZE 5. PT PLACED ON MONITOR, BP CUFF, PULSE OX. UNDRESSED AND PLACED IN GOWN.
--- NOTE | 2019-01-14 10:15 | NUR ---
MULTIPLE SMALL WOUNDS TO SCALP. LARGE HEMATOMA/WOUND TO R SCALP BEHIND EAR-TENDER TO TOUCH. ERP NOTIFIED OF FINDINGS.
[2019-01-14] MEDS ORDERED: LORazepam 2 MG/ML, 1ML ONE (10:18)
[2019-01-14] MEDS ORDERED: LORazepam 2 MG/ML, 1ML IM ONE (10:30)
[2019-01-14 10:40] LABS: BASOPHILS # (AUTO) 0.03 x10^3/uL (0-0.1); BASOPHILS % (AUTO) 0 % (0-1); EOSINOPHILS % (AUTO) 0 % (1-7); LYMPHOCYTES # (AUTO) 1.67 x10^3/uL (1-3.4); LYMPHOCYTES % (AUTO) 13 % (22-44); MD NO; MEAN CORPUSCULAR HEMOGLOBIN 26.5 pg (27.0-34.8); MEAN CORPUSCULAR HGB CONC 32.2 g/dL (32.4-35.8); MEAN CORPUSCULAR VOLUME 82.2 fL (80-100); MEAN PLATELET VOLUME 8.4 fL (7.4-10.4); MONOCYTES # (AUTO) 0.37 x10^3/uL (0.2-0.8); MONOCYTES % (AUTO) 3 % (2-9); NEUTROPHILS # (AUTO) 10.78 x10^3/uL (1.8-6.8); NEUTROPHILS % (AUTO) 84 % (42-75); PLATELET COUNT 385 x10^3/uL (130-400); RED BLOOD COUNT 4.67 x10^6/uL (3.82-5.3); RED CELL DISTRIBUTION WIDTH 14.3 % (9.6-15.2)
[2019-01-14 10:50] LABS: ALANINE AMINOTRANSFERASE 20 U/L (12-78); ALBUMIN 2.6 g/dL (3.4-5.0); ANION GAP 9 mmol/L (5-15); CALCIUM 8.7 mg/dL (8.5-10.1); CHLORIDE 102 mmol/L (98-107)
[2019-01-14 10:57] LABS: ALKALINE PHOSPHATASE 225 U/L (45-117); BILIRUBIN,TOTAL 0.4 mg/dL (0.2-1.0); CREATININE 1.85 mg/dL (0.55-1.02); TOTAL PROTEIN 7.4 g/dL (6.4-8.2)
--- NOTE | 2019-01-14 11:17 | NUR ---
ST CATH FOR URINE SPECIMEN WALKED TO LAB. PT STATES PAIN BETTER, MORE RESPONSIVE AT THIS TIME AND FOLLOWING SOME COMMANDS. VSS/UPDATED IN COMPUTER.
[2019-01-14 11:50] LABS: MICROSCOPIC INDICATED
--- NOTE | 2019-01-14 12:06 | NUR ---
RECEIVED REPORT FROM JOSE ELIAS WALKER. ASSUMING CARE AT THIS TIME.
--- NOTE | 2019-01-14 12:10 | NUR ---
REPORT TO WINIFRED WALKER, TRANSFER OF CARE AT THIS TIME.
[2019-01-14 12:13] LABS: CULTURE INDICATED? NO
[2019-01-14 12:18] LABS: AMPHETAMINE SCREEN, URINE Positive (Negative); BARBITURATE SCREEN, URINE Negative (Negative); BENZODIAZEPINE SCREEN, URINE Negative (Negative); CANNABINOID SCREEN, URINE Positive (Negative); COCAINE SCREEN, URINE Negative (Negative); METHADONE SCREEN, URINE Negative (Negative); OPIATE SCREEN, URINE Negative (Negative)
[2019-01-14] MEDS ORDERED: SODIUM CHLORIDE FLUSH 10ML SYR IVF ONE (12:30)
--- NOTE | 2019-01-14 13:18 | NUR ---
PT RESTING COMFORTABLY ON GURNEY. NADN. STATES FEELS BETTER AFTER IVF.
[2019-01-14] MEDS ORDERED: ACETAMINOPHEN 500 MG TABLET ONE (13:37)
--- NOTE | 2019-01-14 13:40 | NUR ---
MEDS ADMINISTERED PER APR.
[2019-01-14] MEDS ORDERED: ACETAMINOPHEN 500 MG TABLET PO ONE (14:00)
--- NOTE | 2019-01-14 14:27 | NUR ---
PT SLEEPING ON GURNEY. NADN. CONTINUES ON 2L O2 WHILE MTF.
[2019-01-14 15:25] VITALS: BP 168/99
--- NOTE | 2019-01-14 15:25 | NUR ---
ATTEMPTED TO WAKE PT TO ASSESS AMBULATION, BUT PT ONLY OPENED HER EYES THEN WHEN BACK TO SLEEP.
--- NOTE | 2019-01-14 16:23 | NUR ---
BREAK RN: PT PROVIDED WITH FOOD- EATING NOW.
[2019-01-14] MEDS ORDERED: SODIUM CHLORIDE 0.9% 1,000ML IVBOLUS ONE (23:00)
== END 2019-01-14 17:19 | disposition home or self-care (01) ==
LOC: ED 12:26
DX: G92 Toxic encephalopathy (principal); E86.0 Dehydration; E11.65 Type 2 diabetes mellitus with hyperglycemia; F15.10 Other stimulant abuse, uncomplicated
CPT/HCPCS: 36415; 70450; 72125; 80053; 80307; 81001; 85025; 96360; 96372; 99284; J2060; J7030

== ENCOUNTER 2019-01-17 18:19 | Emergency (ER) | payer OTHER, MEDICAID ==
[~2019-01-17] VITALS: Ht 165.1 cm; Wt 80.0 kg
--- NOTE | 2019-01-17 18:32 | NUR ---
PATIENT BROUGHT IN BE [facility] FROM [facility] WITH CHIEF COMPLAINT OF [place] AND ANXIETY, PATIENT STATES HER MEDS WERE STOLEN. AFTER FURTHER QUESTIONING/EVALUATION THE PATIENT REVEALED SHE FELL EARLIER TODAY, GLF. THE PATIENT IS ALERT & ORIENTED, HOWEVER VERY ANXIOUS.
[2019-01-17] MEDS ORDERED: LORazepam 1MG TABLET ONE (18:36)
--- NOTE | 2019-01-17 18:45 | NUR ---
REPORT TO GABRIELE WALKER
--- NOTE | 2019-01-17 18:54 | NUR ---
RECIEVED REPORT FROM DEMETRIUS.
[2019-01-17] MEDS ORDERED: LORazepam 1MG TABLET PO ONE (19:00)
[2019-01-17 19:44] VITALS: BP 187/91
[2019-01-17] MEDS ORDERED: ACETAMINOPHEN 325 MG TABLET ONE (19:50)
--- NOTE | 2019-01-17 19:52 | NUR ---
DR NOTIFIED OF BS OF >400. INSTRUCTED PT NO NEW ORDERS TONIGHT AND TO F/U WITH PCP IN AM.
[2019-01-17] MEDS ORDERED: ACETAMINOPHEN 325 MG TABLET PO ONE (20:00)
== END 2019-01-17 20:27 | disposition home or self-care (01) ==
LOC: ED 20:00
DX: G44.211 Episodic tension-type headache, intractable (principal); F41.1 Generalized anxiety disorder; M54.2 Cervicalgia; I10 Essential (primary) hypertension; E11.9 Type 2 diabetes mellitus without complications; E78.5 Hyperlipidemia, unspecified; Z90.89 Acquired absence of other organs; Z88.5 Allergy status to narcotic agent; Z88.6 Allergy status to analgesic agent
CPT/HCPCS: 70450; 82962; 99284

== ENCOUNTER 2019-01-24 16:37 | Emergency (ER) | payer OTHER, MEDICAID ==
[~2019-01-24] VITALS: Ht 160 cm; Wt 90.0 kg
[2019-01-24 16:49] VITALS: BP 137/81
--- NOTE | 2019-01-24 17:18 | NUR ---
PT TO ED FROM ASSISTED. STS FEELS ANXIOUS D/T HAVING PHONE STOLEN. [employer] AT BEDSIDE FOR REPORT. PT SHAKING AND ACTING VERY ANXIOUS. PA AT BEDSIDE. PT ALSO C/O PAIN IN SKINFOLDS ON LEGS R/T YEAST INFECTION. DOES NOT SHOWER REGULARLY. ALSO C/O ITCHY BUMPS ON HEAD.
[2019-01-24] MEDS ORDERED: LORazepam 1MG TABLET ONE (17:29)
[2019-01-24] MEDS ORDERED: LORazepam 1MG TABLET PO ONE (17:30)
[2019-01-24] MEDS ORDERED: NYSTATIN OINT 15GM TP PRN (17:30)
[2019-01-24] MEDS ORDERED: NEOSPORIN OINT. PKT 1 PACKET ONE (18:11)
--- NOTE | 2019-01-24 18:20 | NUR ---
SCALP WOUNDS AND SKIN FOLDS CLEANED. PT EDUCATED. NYSTATIN APPLIED. PT STS ANXIETY IS RELIEVED BY ATIVAN.
== END 2019-01-24 18:38 | disposition home or self-care (01) ==
LOC: ED 17:40
DX: F41.1 Generalized anxiety disorder (principal); L02.811 Cutaneous abscess of head [any part, except face]; B37.9 Candidiasis, unspecified; F32.9 Major depressive disorder, single episode, unspecified; I10 Essential (primary) hypertension; E11.65 Type 2 diabetes mellitus with hyperglycemia; E78.00 Pure hypercholesterolemia, unspecified; F17.200 Nicotine dependence, unspecified, uncomplicated; E78.5 Hyperlipidemia, unspecified; E66.09 Other obesity due to excess calories; Z68.35 Body mass index [BMI] 35.0-35.9, adult; Z72.9 Problem related to lifestyle, unspecified; Z90.49 Acquired absence of other specified parts of digestive tract; Z75.9 Unspecified problem related to medical facilities and other health care; Z91.14 Patient's other noncompliance with medication regimen
CPT/HCPCS: 99283; 99284

== ENCOUNTER 2019-01-26 17:06 | Emergency (ER) | payer OTHER, MEDICAID ==
[~2019-01-26] VITALS: Ht 160 cm; Wt 89.5 kg
[2019-01-26 17:10] VITALS: BP 103/74
--- NOTE | 2019-01-26 17:24 | NUR ---
Pt BIBA to ED slipped and fell at bus stop. 11/03 R knee pain. abrasion. call malhotra in reach. waiting md warner.
[2019-01-26] MEDS ORDERED: IBUPROFEN 200 MG TABLET ONE (17:41)
[2019-01-26] MEDS ORDERED: ACETAMINOPHEN 325 MG TABLET ONE (17:50)
--- NOTE | 2019-01-26 17:59 | NUR ---
TO AND FROM XR. APAP FOR PAIN.
[2019-01-26] MEDS ORDERED: ACETAMINOPHEN 325 MG TABLET PO ONE (18:00)
[2019-01-26] MEDS ORDERED: IBUPROFEN 600 MG TABLET PO ONE (18:00)
[2019-01-26] MEDS ORDERED: NEOSPORIN OINT. PKT 1 PACKET ONE (18:13)
--- NOTE | 2019-01-26 18:22 | NUR ---
wound care done. baci/drsg to knee.
== END 2019-01-26 18:40 | disposition home or self-care (01) ==
LOC: ED 18:15
DX: S80.01XA Contusion of right knee, initial encounter (principal); I10 Essential (primary) hypertension; E78.5 Hyperlipidemia, unspecified; E11.65 Type 2 diabetes mellitus with hyperglycemia; E78.00 Pure hypercholesterolemia, unspecified; Z90.89 Acquired absence of other organs; W01.0XXA Fall on same level from slipping, tripping and stumbling without subsequent striking against object, initial encounter; Y93.89 Activity, other specified; Y92.410 Unspecified street and highway as the place of occurrence of the external cause; Y99.8 Other external cause status
CPT/HCPCS: 99283

== ENCOUNTER 2019-04-02 14:50 | Emergency (ER) | payer OTHER, MEDICAID ==
[~2019-04-02] VITALS: Ht 162.6 cm; Wt 100.0 kg
[2019-04-02 14:58] VITALS: BP 178/67
[2019-04-02] MEDS ORDERED: HYDROcodone/APAP 5/325 TABLET ONE (15:10)
[2019-04-02] MEDS ORDERED: HYDROcodone/APAP 5/325 TABLET PO ONE (15:30)
[2019-04-02 15:34] LABS: BASOPHILS # (AUTO) 0.04 x10^3/uL (0-0.1); BASOPHILS % (AUTO) 0 % (0-1); EOSINOPHILS # (AUTO) 0.13 x10^3/uL (0-0.4); EOSINOPHILS % (AUTO) 1 % (1-7); LYMPHOCYTES # (AUTO) 2.29 x10^3/uL (1-3.4); LYMPHOCYTES % (AUTO) 23 % (22-44); MD NO; MEAN CORPUSCULAR HEMOGLOBIN 27.3 pg (27.0-34.8); MEAN CORPUSCULAR VOLUME 85.4 fL (80-100); MEAN PLATELET VOLUME 7.5 fL (7.4-10.4); MONOCYTES # (AUTO) 0.49 x10^3/uL (0.2-0.8); MONOCYTES % (AUTO) 5 % (2-9); NEUTROPHILS # (AUTO) 7.07 x10^3/uL (1.8-6.8); NEUTROPHILS % (AUTO) 71 % (42-75); PLATELET COUNT 488 x10^3/uL (130-400); RED CELL DISTRIBUTION WIDTH 17.4 % (9.6-15.2)
[2019-04-02 15:41] LABS: ANION GAP 8 mmol/L (5-15); CALCIUM 7.5 mg/dL (8.5-10.1); CHLORIDE 106 mmol/L (98-107)
[2019-04-02 15:42] LABS: CREATININE 2.29 mg/dL (0.55-1.02)
== END 2019-04-02 17:09 | disposition home or self-care (01) ==
LOC: ED 15:34
DX: E10.22 Type 1 diabetes mellitus with diabetic chronic kidney disease (principal); I12.9 Hypertensive chronic kidney disease with stage 1 through stage 4 chronic kidney disease, or unspecified chronic kidney disease; N18.9 Chronic kidney disease, unspecified; E78.5 Hyperlipidemia, unspecified; E78.00 Pure hypercholesterolemia, unspecified; E10.40 Type 1 diabetes mellitus with diabetic neuropathy, unspecified; Z87.891 Personal history of nicotine dependence; Z76.0 Encounter for issue of repeat prescription
CPT/HCPCS: 36415; 80048; 82040; 85025; 99283

== ENCOUNTER 2019-04-06 04:19 | Emergency (ER) | payer OTHER, MEDICAID ==
[~2019-04-06] VITALS: Ht 162.6 cm; Wt 98.0 kg
--- NOTE | 2019-04-06 04:25 | NUR ---
ASSESSMENT MADE. CHART UP FOR MD TO SEE.
[2019-04-06] MEDS ORDERED: FAMOTIDINE 20 MG/2 ML IVPush ONE (05:00)
[2019-04-06] MEDS ORDERED: SODIUM CHLORIDE FLUSH 10ML SYR IVF ONE (05:00)
[2019-04-06] MEDS ORDERED: ONDANSETRON 2MG/ML, 2ML IVPush ONE ×2 (05:00→08:00)
[2019-04-06] MEDS ORDERED: ALUMINUM/MAG/SIMETHICONE 30 ML UDC PO ONE (05:00)
[2019-04-06] MEDS ORDERED: MAALOX/HYOSCYAMINE/LIDOCAINE 45 ML BTL PO ONE (05:00)
[2019-04-06] MEDS ORDERED: ALUMINUM/MAG/SIMETHICONE 30 ML UDC ONE (05:08)
[2019-04-06] MEDS ORDERED: ONDANSETRON 2MG/ML, 2ML ONE ×2 (05:08→07:38)
[2019-04-06] MEDS ORDERED: MAALOX/HYOSCYAMINE/LIDOCAINE 45 ML BTL ONE (05:08)
[2019-04-06] MEDS ORDERED: FAMOTIDINE 20 MG/2 ML ONE (05:08)
[2019-04-06 05:22] LABS: ALANINE AMINOTRANSFERASE 19 U/L (12-78); ANION GAP 8 mmol/L (5-15); CALCIUM 8.2 mg/dL (8.5-10.1); CHLORIDE 105 mmol/L (98-107)
[2019-04-06 05:24] LABS: BASOPHILS % (AUTO) 0 % (0-1); EOSINOPHILS % (AUTO) 0 % (1-7); LYMPHOCYTES # (AUTO) 0.47 x10^3/uL (1-3.4); LYMPHOCYTES % (AUTO) 6 % (22-44); MD NO; MEAN CORPUSCULAR HEMOGLOBIN 27.6 pg (27.0-34.8); MEAN CORPUSCULAR HGB CONC 32.7 g/dL (32.4-35.8); MEAN CORPUSCULAR VOLUME 84.3 fL (80-100); MEAN PLATELET VOLUME 7.7 fL (7.4-10.4); MONOCYTES # (AUTO) 0.31 x10^3/uL (0.2-0.8); MONOCYTES % (AUTO) 4 % (2-9); NEUTROPHILS # (AUTO) 7.91 x10^3/uL (1.8-6.8); NEUTROPHILS % (AUTO) 91 % (42-75); PLATELET COUNT 380 x10^3/uL (130-400); RED BLOOD COUNT 3.19 x10^6/uL (3.82-5.3); RED CELL DISTRIBUTION WIDTH 18.4 % (9.6-15.2)
[2019-04-06 05:25] LABS: ALKALINE PHOSPHATASE 187 U/L (45-117); BILIRUBIN,TOTAL 0.2 mg/dL (0.2-1.0); CREATININE 2.61 mg/dL (0.55-1.02); TOTAL PROTEIN 6.2 g/dL (6.4-8.2)
--- NOTE | 2019-04-06 05:26 | NUR ---
IV placed. medicated.
[2019-04-06 05:50] LABS: ACETONE, SERUM Negative (Negative)
--- NOTE | 2019-04-06 05:55 | NUR ---
patient to Bathroom using her walker. steady gait.
[2019-04-06] MEDS ORDERED: SODIUM CHLORIDE 0.9% 1,000ML IVBOLUS ONE (06:00)
--- NOTE | 2019-04-06 06:17 | NUR ---
patient sleeping, respiration unlabored. no vomiting noted.
--- NOTE | 2019-04-06 06:50 | NUR ---
report to DENISE Odom
[2019-04-06 07:50] LABS: ANION GAP 7 mmol/L (5-15); CALCIUM 7.8 mg/dL (8.5-10.1); CHLORIDE 108 mmol/L (98-107); CREATININE 2.52 mg/dL (0.55-1.02)
[2019-04-06 08:07] VITALS: BP 148/75
--- NOTE | 2019-04-06 08:09 | NUR ---
Patient given discharge instructions and they have confirmed that they understand the instructions. PT VERBALIZED UNDERSTANDING TO FILL MEDICATIONS AND TAKE DIRECTED ALONG WITH TO FOLLOW UP RECOMMENDED Patient ambulatory with steady gait.
[2019-04-07] MEDS ORDERED: SULF1TAB24 PO (07:34)
[2019-04-07] MEDS ORDERED: CEPH-368 PO (07:34)
[2019-04-07] MEDS ORDERED: ONDA4TAB7 PO (07:34)
[2019-04-07] MEDS ORDERED: METO5TAB2 PO (07:34)
[2019-04-12] MEDS ORDERED: OSEL75CA14 PO (12:38)
[2019-04-12] MEDS ORDERED: FURO40TA6 PO (12:38)
[2019-04-12] MEDS ORDERED: POTA20TA6 PO (12:38)
[2019-04-12] MEDS ORDERED: GLIP5TAB10 PO (14:08)
== END 2019-04-06 08:10 | disposition home or self-care (01) ==
LOC: ED 05:29
DX: K29.50 Unspecified chronic gastritis without bleeding (principal); J96.10 Chronic respiratory failure, unspecified whether with hypoxia or hypercapnia; E11.65 Type 2 diabetes mellitus with hyperglycemia; I25.2 Old myocardial infarction; F17.210 Nicotine dependence, cigarettes, uncomplicated
CPT/HCPCS: 36415; 80048; 80053; 82010; 83605; 83690; 85025; 93005; 96361; 96374; 96375; 96376; 99283; J2405; J3490; J7030; 96372

== ENCOUNTER 2019-04-17 00:18 | Emergency (ER) | payer MEDICAID, OTHER ==
[~2019-04-17] VITALS: Ht 154.9 cm; Wt 94.0 kg
[~2019-04-17 00:18] MED LIST changes: +CEPH-368 PO; +FURO40TA6 PO; +GLIP5TAB10 PO; +METO5TAB2 PO; +ONDA4TAB7 PO; +OSEL75CA14 PO; +POTA20TA6 PO; +SULF1TAB24 PO
[2019-04-17 02:09] LABS: BASOPHILS # (AUTO) 0.03 x10^3/uL (0-0.1); BASOPHILS % (AUTO) 1 % (0-1); EOSINOPHILS # (AUTO) 0.15 x10^3/uL (0-0.4); EOSINOPHILS % (AUTO) 2 % (1-7); LYMPHOCYTES # (AUTO) 1.35 x10^3/uL (1-3.4); LYMPHOCYTES % (AUTO) 22 % (22-44); MD NO; MEAN CORPUSCULAR HEMOGLOBIN 27.5 pg (27.0-34.8); MEAN CORPUSCULAR HGB CONC 32.5 g/dL (32.4-35.8); MEAN CORPUSCULAR VOLUME 84.6 fL (80-100); MEAN PLATELET VOLUME 7.3 fL (7.4-10.4); MONOCYTES # (AUTO) 0.47 x10^3/uL (0.2-0.8); MONOCYTES % (AUTO) 8 % (2-9); NEUTROPHILS # (AUTO) 4.18 x10^3/uL (1.8-6.8); NEUTROPHILS % (AUTO) 68 % (42-75); PLATELET COUNT 479 x10^3/uL (130-400); RED BLOOD COUNT 3.31 x10^6/uL (3.82-5.3); RED CELL DISTRIBUTION WIDTH 17.8 % (9.6-15.2)
[2019-04-17 02:19] LABS: ALANINE AMINOTRANSFERASE 19 U/L (12-78); ALBUMIN 1.8 g/dL (3.4-5.0); ANION GAP 7 mmol/L (5-15); CALCIUM 7.9 mg/dL (8.5-10.1); CHLORIDE 105 mmol/L (98-107); CREATININE 2.26 mg/dL (0.55-1.02)
[2019-04-17 02:21] LABS: ALKALINE PHOSPHATASE 191 U/L (45-117); BILIRUBIN,TOTAL 0.1 mg/dL (0.2-1.0); TOTAL PROTEIN 6.3 g/dL (6.4-8.2)
--- NOTE | 2019-04-17 02:30 | NUR ---
PT RESTING WITH EYES CLOSED. MONITOR IN PLACE.
--- NOTE | 2019-04-17 03:29 | NUR ---
PT TO BR INDEPENDENTLY. NO OTHER NEEDS AT THIS TIME.
[2019-04-17 03:30] VITALS: BP 139/70
--- NOTE | 2019-04-17 03:57 | NUR ---
PT RESTING WITH EYES CLOSED. MONITOR IN PLACE.
[2019-04-17] MEDS ORDERED: IBUPROFEN 600 MG TABLET PO ONE (05:00)
[2019-04-17] MEDS ORDERED: BENZONATATE 100 MG CAPSULE PO ONE (05:00)
[2019-04-17] MEDS ORDERED: BENZONATATE 100 MG CAPSULE ONE (05:08)
[2019-04-17] MEDS ORDERED: IBUPROFEN 600 MG TABLET ONE (05:08)
== END 2019-04-17 05:13 | disposition home or self-care (01) ==
LOC: ED 03:00
DX: J20.8 Acute bronchitis due to other specified organisms (principal); R79.89 Other specified abnormal findings of blood chemistry; F17.210 Nicotine dependence, cigarettes, uncomplicated; R06.02 Shortness of breath
CPT/HCPCS: 36415; 71046; 80053; 85025; 93005; 99285

== ENCOUNTER 2019-05-03 00:32 | Inpatient (IN) | payer OTHER, MEDICAID ==
[~2019-05-03] VITALS: Ht 162.6 cm; Wt 101.7 kg
[2019-05-03] MEDS ORDERED: methylPREDNISolone SOD SUCC 125 MG/2 ML IVPush STA (00:45)
[2019-05-03] MEDS ORDERED: SODIUM CHLORIDE FLUSH 10ML SYR IVF ONE (01:00)
[2019-05-03] MEDS ORDERED: ALBUTEROL/IPRATROPIUM 2.5MG/0.5MG, 3 ML NPPB SCH (01:00)
[2019-05-03] MEDS ORDERED: ALBUTEROL/IPRATROPIUM 2.5MG/0.5MG, 3 ML ONE (01:01)
--- NOTE | 2019-05-03 01:03 | NUR ---
Phlebotomy at bedside. greenhouse technician waiting for phlebotomy to finish. RT at bedside.
[2019-05-03 01:21] LABS: BASOPHILS % (AUTO) 0 % (0-1); EOSINOPHILS # (AUTO) 0.08 x10^3/uL (0-0.4); EOSINOPHILS % (AUTO) 1 % (1-7); LYMPHOCYTES # (AUTO) 1.33 x10^3/uL (1-3.4); LYMPHOCYTES % (AUTO) 17 % (22-44); MD NO; MEAN CORPUSCULAR HEMOGLOBIN 27.8 pg (27.0-34.8); MEAN CORPUSCULAR VOLUME 86.7 fL (80-100); MONOCYTES % (AUTO) 6 % (2-9); NEUTROPHILS # (AUTO) 6.09 x10^3/uL (1.8-6.8); NEUTROPHILS % (AUTO) 76 % (42-75); PLATELET COUNT 376 x10^3/uL (130-400); RED BLOOD COUNT 3.18 x10^6/uL (3.82-5.3); RED CELL DISTRIBUTION WIDTH 18.5 % (9.6-15.2)
[2019-05-03 01:24] LABS: RAPID INFLUENZA A Negative (Negative); RAPID INFLUENZA B Negative (Negative)
[2019-05-03 01:29] LABS: ALANINE AMINOTRANSFERASE 34 U/L (12-78); ANION GAP 9 mmol/L (5-15); CHLORIDE 104 mmol/L (98-107); CREATININE 2.48 mg/dL (0.55-1.02)
[2019-05-03 01:34] LABS: ALKALINE PHOSPHATASE 262 U/L (45-117); BILIRUBIN,TOTAL 0.3 mg/dL (0.2-1.0); TOTAL PROTEIN 6.3 g/dL (6.4-8.2)
[2019-05-03 01:40] LABS: TROPONIN I 0.223 ng/mL (0.000-0.045)
[2019-05-03] MEDS ORDERED: methylPREDNISolone SOD SUCC 125 MG/2 ML ONE (02:12)
[2019-05-03] MEDS ORDERED: TRAZODONE 50MG TABLET PO PRN (03:00)
[2019-05-03] MEDS ORDERED: hydrALAzine 20 MG/ML, 1ML IVPush PRN (03:00)
[2019-05-03] MEDS ORDERED: ONDANSETRON 2MG/ML, 2ML IVPush PRN (03:00)
[2019-05-03 03:53] VITALS: BP 161/85
[2019-05-03 04:02] LABS: TROPONIN I 0.187 ng/mL (0.000-0.045)
[2019-05-03 04:15] LABS: CULTURE INDICATED? NO; MICROSCOPIC AUTO
[2019-05-03 04:24] LABS: AMPHETAMINE SCREEN, URINE Negative (Negative); BARBITURATE SCREEN, URINE Negative (Negative); BENZODIAZEPINE SCREEN, URINE Negative (Negative); CANNABINOID SCREEN, URINE Negative (Negative); COCAINE SCREEN, URINE Negative (Negative); METHADONE SCREEN, URINE Negative (Negative); OPIATE SCREEN, URINE Negative (Negative)
[2019-05-03] MEDS ORDERED: FUROSEMIDE 40 MG/4 ML IV ONE (04:30)
[2019-05-03] MEDS: CEFTRIAXONE PMX 1GM/50ML 50 ML IV SCH (04:59)
[2019-05-03 06:54] VITALS: BP 149/84
[2019-05-03] MEDS: INSULIN LISPRO 100 UNITS/ML, PEN SQ-INSULIN SCH ×4 (07:00→20:24)
[2019-05-03] MEDS: SENNA/DOCUSATE TABLET PO SCH (08:16)
[2019-05-03] MEDS: AMLODIPINE 5 MG TABLET PO SCH (08:18)
[2019-05-03] MEDS: POTASSIUM CHLORIDE 20 MEQ TAB.ER.PRT PO SCH (08:18)
[2019-05-03] MEDS: GABAPENTIN 300 MG CAPSULE PO SCH ×3 (08:18→20:45)
[2019-05-03] MEDS: CITALOPRAM 20 MG TABLET PO SCH (08:19)
[2019-05-03] MEDS ORDERED: FUROSEMIDE 40 MG/4 ML IV SCH (09:00)
[2019-05-03] MEDS ORDERED: FAMOTIDINE 20 MG TABLET PO SCH (09:00)
[2019-05-03] MEDS ORDERED: CEFTRIAXONE 1,000 MG IM ONE (09:00)
[2019-05-03 10:03] LABS: TROPONIN I 0.142 ng/mL (0.000-0.045)
[2019-05-03] MEDS: FUROSEMIDE 40 MG/4 ML IV SCH ×2 (10:22→20:45)
[2019-05-03 12:37] VITALS: BP 187/98
[2019-05-03] MEDS: morphine SULFATE 10 MG/ML, 1ML IVPush PRN ×2 (13:32→18:35)
[2019-05-03] MEDS: ACETAMINOPHEN 325 MG TABLET PO PRN (16:26)
[2019-05-03 18:22] VITALS: BP 166/78
[2019-05-03] MEDS ORDERED: OXYcodone/APAP 5/325MG TABLET PO STA (18:42)
[2019-05-03] MEDS: ATORVASTATIN 40 MG TABLET PO SCH (20:45)
[2019-05-03] MEDS ORDERED: INSULIN GLARGINE 100 UNITS/ML, PEN SQ-INSULIN SCH (21:00)
[2019-05-04 01:08] VITALS: BP 136/84
[2019-05-04] MEDS: CEFTRIAXONE PMX 1GM/50ML 50 ML IV SCH (04:53)
[2019-05-04 05:13] LABS: ALBUMIN 1.9 g/dL (3.4-5.0); ANION GAP 7 mmol/L (5-15); CALCIUM 8.2 mg/dL (8.5-10.1); CHLORIDE 101 mmol/L (98-107)
[2019-05-04 05:15] LABS: BASOPHILS # (AUTO) 0.01 x10^3/uL (0-0.1); BASOPHILS % (AUTO) 0 % (0-1); EOSINOPHILS # (AUTO) 0.03 x10^3/uL (0-0.4); EOSINOPHILS % (AUTO) 0 % (1-7); LYMPHOCYTES % (AUTO) 27 % (22-44); MD NO; MEAN CORPUSCULAR HEMOGLOBIN 27.8 pg (27.0-34.8); MEAN CORPUSCULAR VOLUME 86.8 fL (80-100); MEAN PLATELET VOLUME 7.9 fL (7.4-10.4); MONOCYTES # (AUTO) 0.51 x10^3/uL (0.2-0.8); MONOCYTES % (AUTO) 7 % (2-9); NEUTROPHILS # (AUTO) 5.23 x10^3/uL (1.8-6.8); NEUTROPHILS % (AUTO) 66 % (42-75); PLATELET COUNT 384 x10^3/uL (130-400); RED BLOOD COUNT 3.16 x10^6/uL (3.82-5.3); RED CELL DISTRIBUTION WIDTH 18.5 % (9.6-15.2)
[2019-05-04 05:18] LABS: ALANINE AMINOTRANSFERASE 23 U/L (12-78); ALKALINE PHOSPHATASE 209 U/L (45-117); BILIRUBIN,TOTAL 0.4 mg/dL (0.2-1.0); CREATININE 2.44 mg/dL (0.55-1.02); TOTAL PROTEIN 6.3 g/dL (6.4-8.2)
[2019-05-04 06:45] VITALS: BP 139/82
[2019-05-04] MEDS: INSULIN LISPRO 100 UNITS/ML, PEN SQ-INSULIN SCH ×4 (07:00→21:40)
[2019-05-04] MEDS: SENNA/DOCUSATE TABLET PO SCH (08:29)
[2019-05-04] MEDS: AMLODIPINE 5 MG TABLET PO SCH (08:29)
[2019-05-04] MEDS: FAMOTIDINE 20 MG TABLET PO SCH (08:29)
[2019-05-04] MEDS: CITALOPRAM 20 MG TABLET PO SCH (08:29)
[2019-05-04] MEDS: POTASSIUM CHLORIDE 20 MEQ TAB.ER.PRT PO SCH (08:30)
[2019-05-04] MEDS: GABAPENTIN 300 MG CAPSULE PO SCH ×3 (08:30→21:42)
[2019-05-04] MEDS: FUROSEMIDE 40 MG/4 ML IV SCH ×4 (08:30→21:41)
[2019-05-04] MEDS: ACETAMINOPHEN 325 MG TABLET PO PRN (08:46)
[2019-05-04 09:50] LABS: TROPONIN I 0.153 ng/mL (0.000-0.045)
[2019-05-04] MEDS: OXYcodone/APAP 5/325MG TABLET PO PRN (11:55)
[2019-05-04 12:25] VITALS: BP 145/80
[2019-05-04 12:50] LABS: TROPONIN I 0.163 ng/mL (0.000-0.045)
[2019-05-04 17:46] LABS: TROPONIN I 0.142 ng/mL (0.000-0.045)
[2019-05-04 20:24] VITALS: BP 133/83
[2019-05-04] MEDS ORDERED: INSULIN GLARGINE 100 UNITS/ML, PEN SQ-INSULIN SCH (21:00)
[2019-05-04] MEDS: ATORVASTATIN 40 MG TABLET PO SCH (21:42)
[2019-05-05 01:10] VITALS: BP 151/84
[2019-05-05] MEDS: morphine SULFATE 10 MG/ML, 1ML IVPush PRN ×2 (01:15→08:25)
[2019-05-05 05:31] VITALS: BP 137/81
[2019-05-05 06:22] LABS: CALCIUM 7.8 mg/dL (8.5-10.1); CHLORIDE 98 mmol/L (98-107)
[2019-05-05 06:30] LABS: ALANINE AMINOTRANSFERASE 21 U/L (12-78); ALBUMIN 1.8 g/dL (3.4-5.0); ALKALINE PHOSPHATASE 208 U/L (45-117); ANION GAP 8 mmol/L (5-15); BILIRUBIN,TOTAL 0.2 mg/dL (0.2-1.0); CREATININE 2.54 mg/dL (0.55-1.02); TOTAL PROTEIN 6.2 g/dL (6.4-8.2); TROPONIN I 0.125 ng/mL (0.000-0.045)
[2019-05-05] MEDS: INSULIN LISPRO 100 UNITS/ML, PEN SQ-INSULIN SCH ×4 (07:00→20:21)
[2019-05-05 08:00] VITALS: BP 104/67
[2019-05-05] MEDS: CITALOPRAM 20 MG TABLET PO SCH (08:24)
[2019-05-05] MEDS: GABAPENTIN 300 MG CAPSULE PO SCH ×3 (08:24→20:17)
[2019-05-05] MEDS: AMLODIPINE 5 MG TABLET PO SCH (08:24)
[2019-05-05] MEDS: POTASSIUM CHLORIDE 20 MEQ TAB.ER.PRT PO SCH (08:24)
[2019-05-05] MEDS: FUROSEMIDE 40 MG/4 ML IV SCH ×3 (08:24→20:16)
[2019-05-05] MEDS: FAMOTIDINE 20 MG TABLET PO SCH (08:24)
[2019-05-05] MEDS: SENNA/DOCUSATE TABLET PO SCH (08:24)
[2019-05-05 14:30] VITALS: BP 126/77
[2019-05-05 18:40] VITALS: BP 133/79
[2019-05-05] MEDS: ATORVASTATIN 40 MG TABLET PO SCH (20:17)
[2019-05-05] MEDS: OXYcodone/APAP 5/325MG TABLET PO PRN (20:17)
[2019-05-05] MEDS ORDERED: INSULIN GLARGINE 100 UNITS/ML, PEN SQ-INSULIN SCH (21:00)
[2019-05-06 01:58] VITALS: BP 105/69
[2019-05-06 05:40] LABS: ALBUMIN 1.7 g/dL (3.4-5.0); ANION GAP 5 mmol/L (5-15); CALCIUM 7.6 mg/dL (8.5-10.1); CHLORIDE 99 mmol/L (98-107)
[2019-05-06 05:44] LABS: ALANINE AMINOTRANSFERASE 17 U/L (12-78); ALKALINE PHOSPHATASE 185 U/L (45-117); BILIRUBIN,TOTAL 0.1 mg/dL (0.2-1.0); CREATININE 2.81 mg/dL (0.55-1.02); TOTAL PROTEIN 5.8 g/dL (6.4-8.2)
[2019-05-06 07:10] VITALS: BP 130/67
[2019-05-06] MEDS: INSULIN LISPRO 100 UNITS/ML, PEN SQ-INSULIN SCH ×3 (07:51→16:00)
[2019-05-06] MEDS: AMLODIPINE 5 MG TABLET PO SCH (08:15)
[2019-05-06] MEDS: FAMOTIDINE 20 MG TABLET PO SCH (08:15)
[2019-05-06] MEDS: FUROSEMIDE 40 MG/4 ML IV SCH (08:15)
[2019-05-06] MEDS: GABAPENTIN 300 MG CAPSULE PO SCH ×2 (08:15→16:14)
[2019-05-06] MEDS: POTASSIUM CHLORIDE 20 MEQ TAB.ER.PRT PO SCH (08:15)
[2019-05-06] MEDS: CITALOPRAM 20 MG TABLET PO SCH (08:16)
[2019-05-06] MEDS: ACETAMINOPHEN 325 MG TABLET PO PRN (08:27)
[2019-05-06] MEDS ORDERED: REGADENOSON 0.4 MG/5 ML SYRINGE ONE (10:30)
[2019-05-06] MEDS: SENNA/DOCUSATE TABLET PO SCH (12:00)
[2019-05-06] MEDS: OXYcodone/APAP 5/325MG TABLET PO PRN (12:01)
[2019-05-06 14:25] VITALS: BP 133/74
[2019-05-06] MEDS ORDERED: FURO40TA6 PO ×2 (15:47)
[2019-05-06] MEDS ORDERED: FAMO20TA7 PO (15:47)
== END 2019-05-06 18:13 | disposition home or self-care (01) | DRG 291 ==
LOC: ED 02:29 → EDIP 02:35 → 5SO 03:42
DX: I13.0 Hypertensive heart and chronic kidney disease with heart failure and stage 1 through stage 4 chronic kidney disease, or unspecified chronic kidney disease (principal); J96.01 Acute respiratory failure with hypoxia; I50.33 Acute on chronic diastolic (congestive) heart failure; E87.1 Hypo-osmolality and hyponatremia; N17.9 Acute kidney failure, unspecified; N18.4 Chronic kidney disease, stage 4 (severe); I24.8 Other forms of acute ischemic heart disease; D64.9 Anemia, unspecified; F41.9 Anxiety disorder, unspecified; E11.22 Type 2 diabetes mellitus with diabetic chronic kidney disease; E78.5 Hyperlipidemia, unspecified; F17.210 Nicotine dependence, cigarettes, uncomplicated; K21.9 Gastro-esophageal reflux disease without esophagitis; E66.01 Morbid (severe) obesity due to excess calories; Z68.38 Body mass index [BMI] 38.0-38.9, adult; Z88.6 Allergy status to analgesic agent; Z88.8 Allergy status to other drugs, medicaments and biological substances; Z79.4 Long term (current) use of insulin; Z88.5 Allergy status to narcotic agent; E11.65 Type 2 diabetes mellitus with hyperglycemia
CPT/HCPCS: 36415; 71045; 76604; 78452; 80053; 80307; 81001; 82962; 83605; 83735; 83880; 84145; 84484; 85025; 87040; 87400; 93005; 93017; 94640; 96374; G0378; J0696; J1940; J2785; A9502; J1815; J2270; J2930

== ENCOUNTER 2019-05-28 14:51 | Inpatient (IN) | payer OTHER, MEDICAID ==
[~2019-05-28] VITALS: Ht 162.6 cm; Wt 96.5 kg
[~2019-05-28 14:51] MED LIST changes: +FAMO20TA7 PO
[2019-05-28] MEDS ORDERED: ONDANSETRON 2MG/ML, 2ML ONE ×2 (15:22→17:29)
[2019-05-28] MEDS ORDERED: MORPHINE SULFATE 4 MG/ML, 1ML ONE ×2 (15:22→17:30)
[2019-05-28] MEDS ORDERED: CEFTRIAXONE PMX 1GM/50ML 50 ML ONE (15:22)
[2019-05-28] MEDS ORDERED: SODIUM CHLORIDE FLUSH 10ML SYR IVF ONE (15:30)
[2019-05-28] MEDS ORDERED: ONDANSETRON 2MG/ML, 2ML IVPush ONE (15:30)
[2019-05-28] MEDS ORDERED: CEFTRIAXONE PMX 1GM/50ML 50 ML IVPB ONE (15:30)
[2019-05-28] MEDS ORDERED: MORPHINE SULFATE 4 MG/ML, 1ML IVPush PRN (15:30)
--- NOTE | 2019-05-28 16:32 | NUR ---
BLOOD CULTURES X1 FROM IV US START, LAB ATTEMPTED X2 TO DRAW SENCOND CULTURES, ERP AWARE. WILL MEDICATE WITH ABX ACCORDING TO MAR. PT IN BED, RESPIRATIONS EVEN AND UNLABORED.
[2019-05-28 16:37] LABS: MEAN CORPUSCULAR HEMOGLOBIN 27.2 pg (27.0-34.8); MEAN CORPUSCULAR VOLUME 84.8 fL (80-100); PLATELET COUNT 518 x10^3/uL (130-400); RED BLOOD COUNT 3.97 x10^6/uL (3.82-5.3); RED CELL DISTRIBUTION WIDTH 15.3 % (9.6-15.2)
[2019-05-28 16:38] LABS: MD YES
--- NOTE | 2019-05-28 16:39 | NUR ---
IV FROM US INFILTRATED AFTER SUCCESSFUL BLOOD DRAW. PERLA REMAINS AT BEDSIDE TO ATTEMP IV START.
[2019-05-28] MEDS ORDERED: SODIUM CHLORIDE FLUSH 10ML SYR IVF PRN (17:00)
[2019-05-28 17:19] LABS: ALBUMIN 1.3 g/dL (3.4-5.0); ANION GAP 5 mmol/L (5-15); CALCIUM 8.4 mg/dL (8.5-10.1); CHLORIDE 96 mmol/L (98-107); CREATININE 3.04 mg/dL (0.55-1.02)
[2019-05-28 17:36] LABS: BAND#(MANUAL) 2.74 x10^3/uL; BANDS%(MANUAL) 9 % (0-7); LYMPH#(MANUAL) 2.13 x10^3/uL (1-3.4); LYMPHS% (MANUAL) 7 % (22-44); MONOS#(MANUAL) 1.52 x10^3/uL (0.3-2.7); MONOS% (MANUAL) 5 % (2-9); SEG#(MANUAL) 24.02 x10^3/uL (1.8-6.8); SEGS% (MANUAL) 79 % (42-75)
[2019-05-28 17:38] LABS: <PLATELET ESTIMATE> INCREASED; <PLT MORPHOLOGY> NORMAL PLT MORPH; <RBC MORPHOLOGY> NORMAL
--- NOTE | 2019-05-28 17:53 | NUR ---
PT LAYING IN BED, STATES SOME RELIEF FROM PAIN MED, WILL CONTINUE TO MONITOR. RESPIRATIONS EVEN AND UNLABORED.
[2019-05-28] MEDS ORDERED: METHOCARBAMOL 750 MG TABLET PO PRN (18:00)
[2019-05-28] MEDS ORDERED: ACETAMINOPHEN 325 MG TABLET PO PRN (18:00)
[2019-05-28] MEDS ORDERED: BISACODYL 10 MG SUPP PR PRN (18:00)
[2019-05-28] MEDS ORDERED: VANCOMYCIN PER PHARMACY MC PRN (18:00)
[2019-05-28] MEDS: INSULIN LISPRO 100 UNITS/ML, PEN SQ-INSULIN SCH ×2 (18:00→21:00)
[2019-05-28] MEDS ORDERED: PIPERACILLIN/TAZO/PMX 3.375GM 50 ML IV SCH (18:00)
[2019-05-28] MEDS ORDERED: HEPARIN 5,000 UNITS/ML, 1ML ONE (18:07)
[2019-05-28] MEDS ORDERED: GABAPENTIN 300 MG CAPSULE ONE (18:07)
[2019-05-28] MEDS: GABAPENTIN 300 MG CAPSULE PO SCH ×2 (18:10→21:00)
[2019-05-28] MEDS: HEPARIN 5,000 UNITS/ML, 1ML SQ SCH (18:11)
--- NOTE | 2019-05-28 18:23 | NUR ---
REPORT GIVEN TO DENISE GALLARDO.
[2019-05-28] MEDS ORDERED: PIPERACILLIN/TAZO/PMX 3.375GM 50 ML ONE (18:30)
[2019-05-28] MEDS: SODIUM CHLORIDE 0.9% 1,000 ML IV SCH (18:34)
--- NOTE | 2019-05-28 18:40 | NUR ---
PT IN BED, RESPIRATIONS EVEN AND UNLABORED, STATES RELIEF OF PAIN FROM MEDS AT 4/10 FROM 9.
--- NOTE | 2019-05-28 18:57 | NUR ---
REPORT GIVEN TO DENISE BLAIR.
[2019-05-28 19:10] VITALS: BP 92/60
[2019-05-28] MEDS ORDERED: PHARMACOKINETIC CONSULTATION MC ONE (19:30)
[2019-05-28] MEDS ORDERED: PHARMACOKINETIC MONITORING MC PRN (19:30)
[2019-05-28] MEDS ORDERED: VANCOMYCIN 2,000 MG in SODIUM CHLORIDE 0.9% 250 ML IV ONE (20:00)
[2019-05-28] MEDS ORDERED: FUROSEMIDE 40 MG TABLET PO SCH (21:00)
[2019-05-28] MEDS: ATORVASTATIN 40 MG TABLET PO SCH (22:37)
[2019-05-29] MEDS: PIPERACILLIN/TAZO/PMX 3.375GM 50 ML IV SCH ×4 (01:06→22:23)
[2019-05-29 01:17] VITALS: BP 102/83
[2019-05-29] MEDS: HEPARIN 5,000 UNITS/ML, 1ML SQ SCH ×3 (02:12→17:16)
[2019-05-29] MEDS: OXYcodone/APAP 5/325MG TABLET PO PRN ×2 (03:54→14:59)
[2019-05-29] MEDS ORDERED: PHARMACY INSTRUCTION MC SCH (05:00)
[2019-05-29 05:12] LABS: MEAN CORPUSCULAR HGB CONC 31.4 g/dL (32.4-35.8); MEAN PLATELET VOLUME 7.8 fL (7.4-10.4); PLATELET COUNT 580 x10^3/uL (130-400); RED BLOOD COUNT 4.12 x10^6/uL (3.82-5.3); RED CELL DISTRIBUTION WIDTH 15.2 % (9.6-15.2)
[2019-05-29 05:26] LABS: ANION GAP 8 mmol/L (5-15); CALCIUM 8.7 mg/dL (8.5-10.1); CHLORIDE 95 mmol/L (98-107)
[2019-05-29 05:28] LABS: CREATININE 3.12 mg/dL (0.55-1.02)
[2019-05-29 06:29] LABS: BASOPHILS % (AUTO) 0 % (0-1); EOSINOPHILS # (AUTO) 0.02 x10^3/uL (0-0.4); EOSINOPHILS % (AUTO) 0 % (1-7); LYMPHOCYTES # (AUTO) 3.19 x10^3/uL (1-3.4); LYMPHOCYTES % (AUTO) 10 % (22-44); MD SCAN; MONOCYTES # (AUTO) 1.59 x10^3/uL (0.2-0.8); MONOCYTES % (AUTO) 5 % (2-9); NEUTROPHILS # (AUTO) 27.25 x10^3/uL (1.8-6.8); NEUTROPHILS % (AUTO) 85 % (42-75)
[2019-05-29] MEDS: INSULIN LISPRO 100 UNITS/ML, PEN SQ-INSULIN SCH ×4 (06:33→22:24)
[2019-05-29 07:16] VITALS: BP 100/65
[2019-05-29] MEDS: ONDANSETRON 4 MG TABLET PO PRN (08:45)
[2019-05-29] MEDS: SODIUM CHLORIDE 0.9% 1,000 ML IV SCH ×2 (08:51→17:48)
[2019-05-29] MEDS: CITALOPRAM 20 MG TABLET PO SCH (08:52)
[2019-05-29] MEDS: FAMOTIDINE 20 MG TABLET PO SCH (08:52)
[2019-05-29] MEDS: GABAPENTIN 300 MG CAPSULE PO SCH (08:52)
[2019-05-29] MEDS: SENNA/DOCUSATE TABLET PO SCH (08:52)
[2019-05-29] MEDS: POTASSIUM CHLORIDE 20 MEQ TAB.ER.PRT PO SCH (08:53)
[2019-05-29] MEDS ORDERED: AMLODIPINE 5 MG TABLET PO SCH (09:00)
[2019-05-29] MEDS ORDERED: DULOXETINE 30 MG CAPSULE.DR PO SCH (09:00)
[2019-05-29 09:09] LABS: HCT (SEDRATE) 31.4 % (34.6-47.8)
[2019-05-29 14:22] LABS: VANCOMYCIN,RANDOM 34.2 mcg/mL
[2019-05-29 14:58] LABS: ANION GAP 10 mmol/L (5-15); CALCIUM 8.4 mg/dL (8.5-10.1); CHLORIDE 94 mmol/L (98-107); CREATININE 3.66 mg/dL (0.55-1.02)
[2019-05-29] MEDS ORDERED: PHARMACY MAY ADJ FOR RENAL FX MC PRN (16:30)
[2019-05-29] MEDS: CARVEDILOL 3.125 MG TABLET PO SCH (17:16)
[2019-05-29 18:15] VITALS: BP 102/67
[2019-05-29] MEDS ORDERED: GABAPENTIN 300 MG CAPSULE PO SCH (21:00)
[2019-05-29] MEDS: ATORVASTATIN 40 MG TABLET PO SCH (22:23)
[2019-05-30] MEDS: HEPARIN 5,000 UNITS/ML, 1ML SQ SCH ×3 (02:05→16:12)
[2019-05-30 02:07] VITALS: BP 100/67
[2019-05-30 05:47] LABS: MEAN CORPUSCULAR HEMOGLOBIN 27.1 pg (27.0-34.8); MEAN CORPUSCULAR HGB CONC 31.4 g/dL (32.4-35.8); MEAN CORPUSCULAR VOLUME 86.5 fL (80-100); MEAN PLATELET VOLUME 7.8 fL (7.4-10.4); PLATELET COUNT 503 x10^3/uL (130-400); RED BLOOD COUNT 3.75 x10^6/uL (3.82-5.3); RED CELL DISTRIBUTION WIDTH 15.3 % (9.6-15.2)
[2019-05-30 06:01] LABS: ANION GAP 11 mmol/L (5-15); CALCIUM 8.4 mg/dL (8.5-10.1); CHLORIDE 94 mmol/L (98-107); CREATININE 4.47 mg/dL (0.55-1.02)
[2019-05-30 06:14] LABS: MD YES
[2019-05-30 06:17] LABS: <PLATELET ESTIMATE> INCREASED; ANISOCYTOSIS 1+; BAND#(MANUAL) 1.55 x10^3/uL; BANDS%(MANUAL) 6 % (0-7); LYMPH#(MANUAL) 1.04 x10^3/uL (1-3.4); LYMPHS% (MANUAL) 4 % (22-44); METAMYELOCYTES# (MANUAL) 0.26 x10^3/uL (0-0); METAMYELOCYTES% (MANUAL) 1 % (0-1); MONOS#(MANUAL) 1.04 x10^3/uL (0.3-2.7); MONOS% (MANUAL) 4 % (2-9); POLYCHROMASIA 1+; SEG#(MANUAL) 22.02 x10^3/uL (1.8-6.8); SEGS% (MANUAL) 85 % (42-75)
[2019-05-30 06:18] LABS: <PLT MORPHOLOGY> NORMAL PLT MORPH
[2019-05-30] MEDS: PIPERACILLIN/TAZO/PMX 3.375GM 50 ML IV SCH (06:33)
[2019-05-30] MEDS: CARVEDILOL 3.125 MG TABLET PO SCH ×2 (06:34→16:25)
[2019-05-30 06:58] VITALS: BP 110/69
[2019-05-30] MEDS: SODIUM CHLORIDE 0.9% 1,000 ML IV SCH (07:10)
[2019-05-30] MEDS: POTASSIUM CHLORIDE 20 MEQ TAB.ER.PRT PO SCH (08:12)
[2019-05-30] MEDS: CITALOPRAM 20 MG TABLET PO SCH (08:12)
[2019-05-30] MEDS: FAMOTIDINE 20 MG TABLET PO SCH (08:12)
[2019-05-30] MEDS: INSULIN LISPRO 100 UNITS/ML, PEN SQ-INSULIN SCH ×4 (08:13→21:56)
[2019-05-30] MEDS: SENNA/DOCUSATE TABLET PO SCH (08:15)
[2019-05-30] MEDS: OXYcodone/APAP 5/325MG TABLET PO PRN (09:40)
[2019-05-30] MEDS ORDERED: CEFAZOLIN 2,000 MG in SODIUM CHLORIDE 0.9% 50 ML IV SCH (10:30)
[2019-05-30 13:10] VITALS: BP 93/59
[2019-05-30 19:01] VITALS: BP 113/70
[2019-05-30] MEDS: ATORVASTATIN 40 MG TABLET PO SCH (21:52)
[2019-05-30] MEDS: CEFAZOLIN PMX 1GM/50ML 50 ML IV SCH (23:04)
[2019-05-31 01:39] VITALS: BP 117/62
[2019-05-31] MEDS: HEPARIN 5,000 UNITS/ML, 1ML SQ SCH ×3 (02:29→17:33)
[2019-05-31 05:52] LABS: MEAN CORPUSCULAR HEMOGLOBIN 26.6 pg (27.0-34.8); MEAN PLATELET VOLUME 8.2 fL (7.4-10.4); PLATELET COUNT 524 x10^3/uL (130-400); RED BLOOD COUNT 3.43 x10^6/uL (3.82-5.3); RED CELL DISTRIBUTION WIDTH 15.2 % (9.6-15.2)
[2019-05-31 05:57] LABS: ANION GAP 10 mmol/L (5-15); CALCIUM 8.1 mg/dL (8.5-10.1); CHLORIDE 94 mmol/L (98-107)
[2019-05-31 06:00] VITALS: BP 116/71
[2019-05-31 06:00] LABS: CREATININE 5.53 mg/dL (0.55-1.02)
[2019-05-31] MEDS: CARVEDILOL 3.125 MG TABLET PO SCH ×2 (06:00→17:33)
[2019-05-31 06:40] LABS: BASOPHILS # (AUTO) 0.04 x10^3/uL (0-0.1); BASOPHILS % (AUTO) 0 % (0-1); EOSINOPHILS # (AUTO) 0.05 x10^3/uL (0-0.4); EOSINOPHILS % (AUTO) 0 % (1-7); LYMPHOCYTES # (AUTO) 1.72 x10^3/uL (1-3.4); LYMPHOCYTES % (AUTO) 8 % (22-44); MD SCAN; MONOCYTES # (AUTO) 0.82 x10^3/uL (0.2-0.8); MONOCYTES % (AUTO) 4 % (2-9); NEUTROPHILS # (AUTO) 19.69 x10^3/uL (1.8-6.8); NEUTROPHILS % (AUTO) 88 % (42-75)
[2019-05-31] MEDS: INSULIN LISPRO 100 UNITS/ML, PEN SQ-INSULIN SCH ×5 (07:00→21:56)
[2019-05-31] MEDS: SENNA/DOCUSATE TABLET PO SCH (07:12)
[2019-05-31] MEDS: FAMOTIDINE 20 MG TABLET PO SCH (07:12)
[2019-05-31] MEDS ORDERED: MIDAZOLAM 1 MG/ML, 2ML ONE (08:29)
[2019-05-31] MEDS ORDERED: FENTANYL PF 100 MCG/2ML ONE (08:29)
[2019-05-31] MEDS ORDERED: PHENYLEPHRINE 10 MG/ML ONE (08:45)
[2019-05-31] MEDS ORDERED: PROPOFOL 10 MG/ML, 20ML ONE (09:16)
[2019-05-31] MEDS ORDERED: SUCCINYLCHOLINE 20 MG/ML, 10ML ONE (09:17)
[2019-05-31] MEDS ORDERED: LIDOCAINE-MPF 2% ,5ML ONE (09:17)
[2019-05-31] MEDS ORDERED: ONDANSETRON 2MG/ML, 2ML ONE (09:17)
[2019-05-31] MEDS ORDERED: BUPIVACAINE/PF 0.25% ONE (09:21)
[2019-05-31] MEDS ORDERED: LIDOCAINE 1%, 20ML ONE (09:21)
[2019-05-31] MEDS ORDERED: LIDOCAINE 1%, 20ML INFIL ONE (09:24)
[2019-05-31] MEDS ORDERED: BUPIVACAINE/PF 0.25% INFIL ONE (09:24)
[2019-05-31] MEDS ORDERED: ACETAMINOPHEN 325 MG TABLET PO PRN (09:30)
[2019-05-31] MEDS ORDERED: MORPHINE SULFATE 4 MG/ML, 1ML IVPush PRN (09:30)
[2019-05-31] MEDS ORDERED: OXYcodone 5 MG/5 ML ORAL.SOL UDC PO PRN (09:30)
[2019-05-31] MEDS ORDERED: FENTANYL PF 100 MCG/2ML IV PRN (09:30)
[2019-05-31] MEDS ORDERED: VANCOMYCIN 1,000 MG IM ONE (09:35)
[2019-05-31] MEDS ORDERED: VANCOMYCIN 1,000 MG ONE (09:40)
[2019-05-31 11:33] VITALS: BP 100/53
[2019-05-31] MEDS: CEFAZOLIN PMX 1GM/50ML 50 ML IV SCH ×2 (11:37→23:35)
[2019-05-31] MEDS: CITALOPRAM 20 MG TABLET PO SCH (11:37)
[2019-05-31] MEDS: OXYcodone/APAP 5/325MG TABLET PO PRN (12:51)
[2019-05-31 13:30] VITALS: BP 97/60
[2019-05-31] MEDS: LACTATED RINGERS 1,000 ML IV SCH (13:35)
[2019-05-31] MEDS ORDERED: ONDANSETRON 4 MG TABLET PO PRN (14:00)
[2019-05-31 16:25] LABS: ANION GAP 10 mmol/L (5-15); CALCIUM 8.3 mg/dL (8.5-10.1); CHLORIDE 94 mmol/L (98-107); CREATININE 6.11 mg/dL (0.55-1.02)
[2019-05-31 17:35] VITALS: BP 102/58
[2019-05-31 20:03] VITALS: BP 104/63
[2019-05-31] MEDS: PANTOPRAZOLE 40MG TABLET PO SCH (21:32)
[2019-05-31] MEDS: ATORVASTATIN 40 MG TABLET PO SCH (21:32)
[2019-06-01 00:03] VITALS: BP 109/67
[2019-06-01] MEDS: HEPARIN 5,000 UNITS/ML, 1ML SQ SCH ×3 (02:10→17:43)
[2019-06-01] MEDS: LACTATED RINGERS 1,000 ML IV SCH (03:55)
[2019-06-01 04:48] VITALS: BP 130/85
[2019-06-01 05:23] LABS: CULTURE INDICATED? YES; MICROSCOPIC INDICATED
[2019-06-01 05:36] LABS: CREATININE,URINE RANDOM 79.6 mg/dL
[2019-06-01 05:58] LABS: ALBUMIN 1.1 g/dL (3.4-5.0); CALCIUM 7.9 mg/dL (8.5-10.1); CHLORIDE 92 mmol/L (98-107)
[2019-06-01 06:06] LABS: % IRON SATURATION 15 % (20-55); ALANINE AMINOTRANSFERASE 7 U/L (12-78); ALKALINE PHOSPHATASE 193 U/L (45-117); ANION GAP 11 mmol/L (5-15); BILIRUBIN,TOTAL 0.4 mg/dL (0.2-1.0); CREATININE 6.34 mg/dL (0.55-1.02); IRON LEVEL 34 mcg/dL (50-170); TOTAL IRON BINDING CAPACITY 224 mcg/dL (250-450); TOTAL PROTEIN 6.5 g/dL (6.4-8.2)
[2019-06-01] MEDS: CARVEDILOL 3.125 MG TABLET PO SCH ×2 (06:17→17:43)
[2019-06-01 06:20] LABS: BASOPHILS # (AUTO) 0.02 x10^3/uL (0-0.1); BASOPHILS % (AUTO) 0 % (0-1); EOSINOPHILS # (AUTO) 0.09 x10^3/uL (0-0.4); EOSINOPHILS % (AUTO) 1 % (1-7); LYMPHOCYTES # (AUTO) 1.61 x10^3/uL (1-3.4); LYMPHOCYTES % (AUTO) 11 % (22-44); MD NO; MEAN CORPUSCULAR HEMOGLOBIN 27.3 pg (27.0-34.8); MEAN CORPUSCULAR HGB CONC 32.1 g/dL (32.4-35.8); MEAN CORPUSCULAR VOLUME 85.1 fL (80-100); MEAN PLATELET VOLUME 7.6 fL (7.4-10.4); MONOCYTES # (AUTO) 0.68 x10^3/uL (0.2-0.8); MONOCYTES % (AUTO) 5 % (2-9); NEUTROPHILS % (AUTO) 83 % (42-75); PLATELET COUNT 497 x10^3/uL (130-400); RED BLOOD COUNT 3.12 x10^6/uL (3.82-5.3); RED CELL DISTRIBUTION WIDTH 15.2 % (9.6-15.2)
[2019-06-01 07:18] VITALS: BP 126/74
[2019-06-01] MEDS: CITALOPRAM 20 MG TABLET PO SCH (07:54)
[2019-06-01] MEDS: PANTOPRAZOLE 40MG TABLET PO SCH ×2 (07:54→20:21)
[2019-06-01] MEDS: INSULIN LISPRO 100 UNITS/ML, PEN SQ-INSULIN SCH ×4 (07:54→20:24)
[2019-06-01] MEDS: LINAGLIPTIN 5 MG TAB PO SCH (07:55)
[2019-06-01] MEDS: SENNA/DOCUSATE TABLET PO SCH (07:55)
[2019-06-01] MEDS: CEFAZOLIN PMX 1GM/50ML 50 ML IV SCH ×2 (11:04→23:16)
[2019-06-01] MEDS: SODIUM BICARBONATE 8.4% 150 MEQ in DEXTROSE 5% 1,000 ML IV SCH ×2 (11:18→22:19)
[2019-06-01] MEDS: ERGOCALCIFEROL 50,000 UNIT CAPSULE PO SCH (11:19)
[2019-06-01] MEDS: IRON SUCROSE COMPLEX 100MG/5ML IV SCH (11:19)
[2019-06-01 13:45] VITALS: BP 150/79
[2019-06-01 16:00] LABS: ANION GAP 12 mmol/L (5-15); CALCIUM 7.7 mg/dL (8.5-10.1); CHLORIDE 91 mmol/L (98-107)
[2019-06-01 19:54] VITALS: BP 159/71
[2019-06-01] MEDS: ATORVASTATIN 40 MG TABLET PO SCH (20:21)
[2019-06-02 01:49] VITALS: BP 158/82
[2019-06-02] MEDS: HEPARIN 5,000 UNITS/ML, 1ML SQ SCH ×3 (02:09→18:42)
[2019-06-02 05:07] LABS: BASOPHILS % (AUTO) 0 % (0-1); EOSINOPHILS # (AUTO) 0.04 x10^3/uL (0-0.4); EOSINOPHILS % (AUTO) 0 % (1-7); LYMPHOCYTES # (AUTO) 1.12 x10^3/uL (1-3.4); LYMPHOCYTES % (AUTO) 8 % (22-44); MD NO; MEAN CORPUSCULAR HEMOGLOBIN 27.5 pg (27.0-34.8); MEAN CORPUSCULAR HGB CONC 32.7 g/dL (32.4-35.8); MEAN CORPUSCULAR VOLUME 84.2 fL (80-100); MEAN PLATELET VOLUME 7.6 fL (7.4-10.4); MONOCYTES # (AUTO) 0.71 x10^3/uL (0.2-0.8); MONOCYTES % (AUTO) 5 % (2-9); NEUTROPHILS # (AUTO) 12.05 x10^3/uL (1.8-6.8); NEUTROPHILS % (AUTO) 87 % (42-75); PLATELET COUNT 497 x10^3/uL (130-400); RED CELL DISTRIBUTION WIDTH 15.7 % (9.6-15.2)
[2019-06-02 05:17] LABS: ALBUMIN 1.1 g/dL (3.4-5.0); ANION GAP 11 mmol/L (5-15); CALCIUM 7.7 mg/dL (8.5-10.1); CHLORIDE 90 mmol/L (98-107)
[2019-06-02 05:19] LABS: CREATININE 6.63 mg/dL (0.55-1.02)
[2019-06-02] MEDS: CARVEDILOL 3.125 MG TABLET PO SCH ×2 (06:40→18:42)
[2019-06-02 07:08] VITALS: BP 155/80
[2019-06-02] MEDS: CITALOPRAM 20 MG TABLET PO SCH (07:46)
[2019-06-02] MEDS: PANTOPRAZOLE 40MG TABLET PO SCH ×2 (07:47→20:54)
[2019-06-02] MEDS: SENNA/DOCUSATE TABLET PO SCH (07:47)
[2019-06-02] MEDS: LINAGLIPTIN 5 MG TAB PO SCH (07:47)
[2019-06-02] MEDS: INSULIN LISPRO 100 UNITS/ML, PEN SQ-INSULIN SCH ×4 (07:51→20:55)
[2019-06-02] MEDS: CEFAZOLIN PMX 1GM/50ML 50 ML IV SCH ×2 (11:01→23:37)
[2019-06-02] MEDS ORDERED: FUROSEMIDE 40 MG/4 ML IV ONE (11:30)
[2019-06-02] MEDS ORDERED: CHLORHEXIDINE 15 ML UDC MM STA (11:49)
[2019-06-02] MEDS ORDERED: FENTANYL PF 250 MCG/5ML ONE (12:46)
[2019-06-02] MEDS ORDERED: FENTANYL PF 100 MCG/2ML IV PRN (13:00)
[2019-06-02] MEDS ORDERED: LABETALOL 5MG/ML, 20ML IV PRN (13:00)
[2019-06-02] MEDS ORDERED: MORPHINE SULFATE 4 MG/ML, 1ML IVPush PRN (13:00)
[2019-06-02] MEDS ORDERED: ONDANSETRON 2MG/ML, 2ML IV PRN (13:00)
[2019-06-02] MEDS ORDERED: PROMETHAZINE 25 MG/ML, 1ML IV PRN (13:00)
[2019-06-02] MEDS ORDERED: OXYcodone 5 MG/5 ML ORAL.SOL UDC PO PRN (13:00)
[2019-06-02] MEDS ORDERED: hydrALAzine 20 MG/ML, 1ML IV PRN (13:00)
[2019-06-02] MEDS ORDERED: VANCOMYCIN 1,000 MG ONE (13:24)
[2019-06-02] MEDS ORDERED: ONDANSETRON 2MG/ML, 2ML ONE (14:22)
[2019-06-02] MEDS ORDERED: METOCLOPRAMIDE 5 MG/ML, 2ML ONE (14:22)
[2019-06-02] MEDS ORDERED: SUCCINYLCHOLINE 20 MG/ML, 10ML ONE (14:22)
[2019-06-02] MEDS ORDERED: PROPOFOL 10 MG/ML, 20ML ONE (14:22)
[2019-06-02 15:39] VITALS: BP 145/74
[2019-06-02] MEDS: OXYcodone/APAP 5/325MG TABLET PO PRN ×2 (17:15→23:39)
[2019-06-02] MEDS ORDERED: ONDANSETRON 4 MG TABLET PO PRN (18:30)
[2019-06-02 19:42] VITALS: BP 144/77
[2019-06-02] MEDS: ATORVASTATIN 40 MG TABLET PO SCH (20:54)
[2019-06-02] MEDS ORDERED: PANTOPRAZOLE 40MG TABLET PO SCH (21:00)
[2019-06-03 00:26] VITALS: BP 124/76
[2019-06-03] MEDS: HEPARIN 5,000 UNITS/ML, 1ML SQ SCH ×3 (03:09→21:29)
[2019-06-03 04:04] VITALS: BP 135/78
[2019-06-03] MEDS: OXYcodone/APAP 5/325MG TABLET PO PRN ×3 (04:54→21:30)
[2019-06-03] MEDS: CARVEDILOL 3.125 MG TABLET PO SCH ×2 (05:42→18:04)
[2019-06-03 06:24] VITALS: BP 92/62
[2019-06-03 07:19] LABS: MEAN CORPUSCULAR HEMOGLOBIN 27.3 pg (27.0-34.8); MEAN CORPUSCULAR HGB CONC 32.1 g/dL (32.4-35.8); MEAN PLATELET VOLUME 7.3 fL (7.4-10.4); PLATELET COUNT 498 x10^3/uL (130-400); RED BLOOD COUNT 3.41 x10^6/uL (3.82-5.3); RED CELL DISTRIBUTION WIDTH 15.2 % (9.6-15.2)
[2019-06-03 07:28] LABS: ALBUMIN 1.2 g/dL (3.4-5.0); ANION GAP 12 mmol/L (5-15); CALCIUM 8.3 mg/dL (8.5-10.1); CHLORIDE 89 mmol/L (98-107); CREATININE 7.53 mg/dL (0.55-1.02)
[2019-06-03 07:40] LABS: BASOPHILS # (AUTO) 0.03 x10^3/uL (0-0.1); BASOPHILS % (AUTO) 0 % (0-1); EOSINOPHILS # (AUTO) 0.08 x10^3/uL (0-0.4); EOSINOPHILS % (AUTO) 1 % (1-7); LYMPHOCYTES # (AUTO) 1.55 x10^3/uL (1-3.4); LYMPHOCYTES % (AUTO) 12 % (22-44); MD SCAN; MONOCYTES # (AUTO) 0.57 x10^3/uL (0.2-0.8); MONOCYTES % (AUTO) 4 % (2-9); NEUTROPHILS # (AUTO) 10.93 x10^3/uL (1.8-6.8); NEUTROPHILS % (AUTO) 83 % (42-75)
[2019-06-03] MEDS ORDERED: CITALOPRAM 20 MG TABLET PO SCH (09:00)
[2019-06-03] MEDS ORDERED: LINAGLIPTIN 5 MG TAB PO SCH (09:00)
[2019-06-03] MEDS: INSULIN LISPRO 100 UNITS/ML, PEN SQ-INSULIN SCH ×4 (09:06→21:30)
[2019-06-03] MEDS: IRON SUCROSE COMPLEX 100MG/5ML IV SCH (09:06)
[2019-06-03] MEDS: PANTOPRAZOLE 40MG TABLET PO SCH ×2 (09:07→21:30)
[2019-06-03] MEDS: LINAGLIPTIN 5 MG TAB PO SCH (09:07)
[2019-06-03] MEDS: SENNA/DOCUSATE TABLET PO SCH (09:07)
[2019-06-03] MEDS: SEVELAMER CARBONATE 800MG TAB PO SCH ×2 (11:33→18:04)
[2019-06-03 13:18] VITALS: BP 162/84
[2019-06-03] MEDS: ONDANSETRON 4 MG TABLET PO PRN (17:16)
[2019-06-03 19:48] VITALS: BP 129/76
[2019-06-03] MEDS: ATORVASTATIN 40 MG TABLET PO SCH (21:30)
[2019-06-03] MEDS: CEFAZOLIN PMX 1GM/50ML 50 ML IV SCH (23:01)
[2019-06-04 01:44] VITALS: BP 151/76
[2019-06-04] MEDS: OXYcodone/APAP 5/325MG TABLET PO PRN (03:48)
[2019-06-04 04:18] LABS: BASOPHILS # (AUTO) 0.02 x10^3/uL (0-0.1); BASOPHILS % (AUTO) 0 % (0-1); EOSINOPHILS # (AUTO) 0.17 x10^3/uL (0-0.4); EOSINOPHILS % (AUTO) 1 % (1-7); LYMPHOCYTES # (AUTO) 1.09 x10^3/uL (1-3.4); LYMPHOCYTES % (AUTO) 9 % (22-44); MD NO; MEAN CORPUSCULAR HEMOGLOBIN 27.1 pg (27.0-34.8); MEAN CORPUSCULAR HGB CONC 32.3 g/dL (32.4-35.8); MEAN PLATELET VOLUME 7.2 fL (7.4-10.4); MONOCYTES # (AUTO) 0.62 x10^3/uL (0.2-0.8); MONOCYTES % (AUTO) 5 % (2-9); NEUTROPHILS # (AUTO) 10.68 x10^3/uL (1.8-6.8); NEUTROPHILS % (AUTO) 85 % (42-75); PLATELET COUNT 475 x10^3/uL (130-400); RED BLOOD COUNT 2.82 x10^6/uL (3.82-5.3); RED CELL DISTRIBUTION WIDTH 15.1 % (9.6-15.2)
[2019-06-04 04:30] LABS: ALBUMIN 1.2 g/dL (3.4-5.0); ANION GAP 11 mmol/L (5-15); CHLORIDE 91 mmol/L (98-107); CREATININE 7.48 mg/dL (0.55-1.02)
[2019-06-04 04:32] LABS: ALKALINE PHOSPHATASE 179 U/L (45-117); BILIRUBIN,TOTAL 0.2 mg/dL (0.2-1.0); TOTAL PROTEIN 6.3 g/dL (6.4-8.2)
[2019-06-04 04:41] LABS: ALANINE AMINOTRANSFERASE < 6 U/L (12-78)
[2019-06-04] MEDS: HEPARIN 5,000 UNITS/ML, 1ML SQ SCH ×3 (05:29→21:09)
[2019-06-04] MEDS: CARVEDILOL 3.125 MG TABLET PO SCH ×2 (05:29→18:33)
[2019-06-04 06:49] VITALS: BP 133/68
[2019-06-04] MEDS: INSULIN LISPRO 100 UNITS/ML, PEN SQ-INSULIN SCH ×4 (07:43→21:10)
[2019-06-04] MEDS: LINAGLIPTIN 5 MG TAB PO SCH (07:50)
[2019-06-04] MEDS: PANTOPRAZOLE 40MG TABLET PO SCH ×2 (07:50→21:06)
[2019-06-04] MEDS: SENNA/DOCUSATE TABLET PO SCH (07:50)
[2019-06-04] MEDS: SEVELAMER CARBONATE 800MG TAB PO SCH ×3 (07:50→16:45)
[2019-06-04] MEDS ORDERED: FUROSEMIDE 40 MG/4 ML IV ONE (11:00)
[2019-06-04] MEDS: ERGOCALCIFEROL 50,000 UNIT CAPSULE PO SCH (11:41)
[2019-06-04 13:22] VITALS: BP 120/68
[2019-06-04] MEDS: POLYETHYLENE GLYCOL 17 GM PACKET PO PRN (15:15)
[2019-06-04 18:46] VITALS: BP 154/79
[2019-06-04] MEDS: ATORVASTATIN 40 MG TABLET PO SCH (21:06)
[2019-06-04] MEDS: CEFAZOLIN PMX 1GM/50ML 50 ML IV SCH (23:17)
[2019-06-05 00:06] VITALS: BP 136/73
[2019-06-05 04:45] LABS: ALBUMIN 1.2 g/dL (3.4-5.0); ANION GAP 10 mmol/L (5-15); CALCIUM 8.3 mg/dL (8.5-10.1); CHLORIDE 90 mmol/L (98-107)
[2019-06-05 04:46] LABS: BASOPHILS # (AUTO) 0.03 x10^3/uL (0-0.1); BASOPHILS % (AUTO) 0 % (0-1); EOSINOPHILS % (AUTO) 1 % (1-7); LYMPHOCYTES # (AUTO) 1.23 x10^3/uL (1-3.4); LYMPHOCYTES % (AUTO) 9 % (22-44); MD NO; MEAN CORPUSCULAR HEMOGLOBIN 27.3 pg (27.0-34.8); MEAN CORPUSCULAR HGB CONC 32.7 g/dL (32.4-35.8); MEAN CORPUSCULAR VOLUME 83.5 fL (80-100); MEAN PLATELET VOLUME 7.4 fL (7.4-10.4); MONOCYTES # (AUTO) 0.45 x10^3/uL (0.2-0.8); MONOCYTES % (AUTO) 3 % (2-9); NEUTROPHILS % (AUTO) 87 % (42-75); PLATELET COUNT 521 x10^3/uL (130-400); RED BLOOD COUNT 2.86 x10^6/uL (3.82-5.3); RED CELL DISTRIBUTION WIDTH 15.4 % (9.6-15.2)
[2019-06-05 04:50] LABS: ALKALINE PHOSPHATASE 187 U/L (45-117); BILIRUBIN,TOTAL 0.4 mg/dL (0.2-1.0); CREATININE 7.83 mg/dL (0.55-1.02); TOTAL PROTEIN 6.5 g/dL (6.4-8.2)
[2019-06-05 04:51] LABS: ALANINE AMINOTRANSFERASE < 6 U/L (12-78)
[2019-06-05] MEDS: CARVEDILOL 3.125 MG TABLET PO SCH ×2 (06:15→17:51)
[2019-06-05] MEDS: HEPARIN 5,000 UNITS/ML, 1ML SQ SCH ×3 (06:15→22:38)
[2019-06-05 06:37] VITALS: BP 135/73
[2019-06-05] MEDS: IRON SUCROSE COMPLEX 100MG/5ML IV SCH (07:28)
[2019-06-05] MEDS: PANTOPRAZOLE 40MG TABLET PO SCH ×2 (07:28→20:28)
[2019-06-05] MEDS: LINAGLIPTIN 5 MG TAB PO SCH (07:28)
[2019-06-05] MEDS: SEVELAMER CARBONATE 800MG TAB PO SCH ×3 (07:28→16:06)
[2019-06-05] MEDS: SENNA/DOCUSATE TABLET PO SCH (07:28)
[2019-06-05] MEDS: INSULIN LISPRO 100 UNITS/ML, PEN SQ-INSULIN SCH ×4 (07:29→20:28)
[2019-06-05] MEDS: ONDANSETRON 4 MG TABLET PO PRN ×2 (07:36→20:28)
[2019-06-05] MEDS ORDERED: FUROSEMIDE 40 MG/4 ML IV ONE (08:30)
[2019-06-05] MEDS: OXYcodone/APAP 5/325MG TABLET PO PRN (10:22)
[2019-06-05 12:48] VITALS: BP 105/68
[2019-06-05 19:08] VITALS: BP 158/78
[2019-06-05] MEDS: ATORVASTATIN 40 MG TABLET PO SCH (20:28)
[2019-06-05] MEDS: CEFAZOLIN PMX 1GM/50ML 50 ML IV SCH (22:38)
[2019-06-06 01:25] VITALS: BP 155/77
[2019-06-06 05:49] LABS: CHLORIDE 91 mmol/L (98-107)
[2019-06-06 05:50] LABS: BASOPHILS % (AUTO) 0 % (0-1); EOSINOPHILS # (AUTO) 0.08 x10^3/uL (0-0.4); EOSINOPHILS % (AUTO) 1 % (1-7); LYMPHOCYTES % (AUTO) 12 % (22-44); MD NO; MEAN CORPUSCULAR HEMOGLOBIN 27.3 pg (27.0-34.8); MEAN CORPUSCULAR HGB CONC 32.5 g/dL (32.4-35.8); MEAN CORPUSCULAR VOLUME 84.2 fL (80-100); MEAN PLATELET VOLUME 7.1 fL (7.4-10.4); MONOCYTES # (AUTO) 0.43 x10^3/uL (0.2-0.8); MONOCYTES % (AUTO) 4 % (2-9); NEUTROPHILS # (AUTO) 9.32 x10^3/uL (1.8-6.8); NEUTROPHILS % (AUTO) 84 % (42-75); PLATELET COUNT 564 x10^3/uL (130-400); RED BLOOD COUNT 2.76 x10^6/uL (3.82-5.3); RED CELL DISTRIBUTION WIDTH 15.2 % (9.6-15.2)
[2019-06-06] MEDS: CARVEDILOL 3.125 MG TABLET PO SCH ×2 (05:54→16:37)
[2019-06-06] MEDS: HEPARIN 5,000 UNITS/ML, 1ML SQ SCH ×3 (05:54→22:14)
[2019-06-06 05:55] LABS: ALBUMIN 1.2 g/dL (3.4-5.0); ANION GAP 10 mmol/L (5-15); CALCIUM 8.2 mg/dL (8.5-10.1); CREATININE 7.58 mg/dL (0.55-1.02)
[2019-06-06 07:03] VITALS: BP 178/79
[2019-06-06 08:41] VITALS: BP 138/77
[2019-06-06] MEDS: LINAGLIPTIN 5 MG TAB PO SCH (08:42)
[2019-06-06] MEDS: PANTOPRAZOLE 40MG TABLET PO SCH ×2 (08:42→20:23)
[2019-06-06] MEDS: SENNA/DOCUSATE TABLET PO SCH (08:42)
[2019-06-06] MEDS: TORSEMIDE 20 MG TABLET PO SCH (08:42)
[2019-06-06] MEDS: INSULIN LISPRO 100 UNITS/ML, PEN SQ-INSULIN SCH ×4 (08:43→20:23)
[2019-06-06] MEDS: OXYcodone/APAP 5/325MG TABLET PO PRN (11:36)
[2019-06-06] MEDS: SEVELAMER CARBONATE 800MG TAB PO SCH ×2 (11:36→16:37)
[2019-06-06 12:54] VITALS: BP 145/72
[2019-06-06 16:36] VITALS: BP 146/80
[2019-06-06 18:52] VITALS: BP 151/79
[2019-06-06] MEDS: ATORVASTATIN 40 MG TABLET PO SCH (20:23)
[2019-06-06] MEDS: CEFAZOLIN PMX 1GM/50ML 50 ML IV SCH (22:15)
[2019-06-07 03:55] VITALS: BP 130/74
[2019-06-07 05:49] LABS: ALBUMIN 1.3 g/dL (3.4-5.0); ANION GAP 10 mmol/L (5-15); CALCIUM 8.3 mg/dL (8.5-10.1); CHLORIDE 90 mmol/L (98-107); CREATININE 7.34 mg/dL (0.55-1.02)
[2019-06-07 05:54] LABS: MEAN CORPUSCULAR HEMOGLOBIN 27.3 pg (27.0-34.8); MEAN CORPUSCULAR HGB CONC 32.2 g/dL (32.4-35.8); MEAN CORPUSCULAR VOLUME 84.8 fL (80-100); MEAN PLATELET VOLUME 7.2 fL (7.4-10.4); PLATELET COUNT 580 x10^3/uL (130-400); RED BLOOD COUNT 2.65 x10^6/uL (3.82-5.3); RED CELL DISTRIBUTION WIDTH 15.6 % (9.6-15.2)
[2019-06-07 05:58] LABS: HCT (SEDRATE) 22.5 % (34.6-47.8)
[2019-06-07] MEDS: CARVEDILOL 3.125 MG TABLET PO SCH ×2 (06:31→17:07)
[2019-06-07] MEDS: HEPARIN 5,000 UNITS/ML, 1ML SQ SCH ×3 (06:32→22:31)
[2019-06-07 06:57] VITALS: BP 169/76
[2019-06-07 07:07] LABS: BASOPHILS # (AUTO) 0.04 x10^3/uL (0-0.1); BASOPHILS % (AUTO) 0 % (0-1); EOSINOPHILS # (AUTO) 0.11 x10^3/uL (0-0.4); EOSINOPHILS % (AUTO) 1 % (1-7); LYMPHOCYTES # (AUTO) 1.39 x10^3/uL (1-3.4); LYMPHOCYTES % (AUTO) 10 % (22-44); MD SCAN; MONOCYTES # (AUTO) 0.43 x10^3/uL (0.2-0.8); MONOCYTES % (AUTO) 3 % (2-9); NEUTROPHILS # (AUTO) 11.61 x10^3/uL (1.8-6.8); NEUTROPHILS % (AUTO) 86 % (42-75)
[2019-06-07] MEDS: SEVELAMER CARBONATE 800MG TAB PO SCH ×3 (07:35→16:20)
[2019-06-07] MEDS: INSULIN LISPRO 100 UNITS/ML, PEN SQ-INSULIN SCH ×4 (07:36→20:40)
[2019-06-07] MEDS: ONDANSETRON 4 MG TABLET PO PRN ×2 (07:37→12:15)
[2019-06-07] MEDS: IRON SUCROSE COMPLEX 100MG/5ML IV SCH (08:45)
[2019-06-07] MEDS: LINAGLIPTIN 5 MG TAB PO SCH (12:24)
[2019-06-07] MEDS: TORSEMIDE 20 MG TABLET PO SCH (12:24)
[2019-06-07] MEDS: PANTOPRAZOLE 40MG TABLET PO SCH ×2 (12:24→20:39)
[2019-06-07] MEDS: SENNA/DOCUSATE TABLET PO SCH (12:24)
[2019-06-07 13:16] VITALS: BP 154/81
[2019-06-07 19:36] VITALS: BP 160/71
[2019-06-07] MEDS: ATORVASTATIN 40 MG TABLET PO SCH (20:39)
[2019-06-07] MEDS: CEFAZOLIN PMX 1GM/50ML 50 ML IV SCH (22:31)
[2019-06-08 00:48] VITALS: BP 146/70
[2019-06-08] MEDS: CARVEDILOL 3.125 MG TABLET PO SCH ×2 (06:03→17:10)
[2019-06-08] MEDS: HEPARIN 5,000 UNITS/ML, 1ML SQ SCH ×3 (06:03→22:48)
[2019-06-08 06:36] LABS: MEAN CORPUSCULAR HEMOGLOBIN 27.4 pg (27.0-34.8); MEAN CORPUSCULAR HGB CONC 32.4 g/dL (32.4-35.8); MEAN CORPUSCULAR VOLUME 84.6 fL (80-100); PLATELET COUNT 579 x10^3/uL (130-400); RED BLOOD COUNT 2.62 x10^6/uL (3.82-5.3); RED CELL DISTRIBUTION WIDTH 15.8 % (9.6-15.2)
[2019-06-08 06:44] LABS: ANION GAP 6 mmol/L (5-15); CALCIUM 8.4 mg/dL (8.5-10.1); CHLORIDE 94 mmol/L (98-107)
[2019-06-08 06:54] LABS: BASOPHILS # (AUTO) 0.01 x10^3/uL (0-0.1); BASOPHILS % (AUTO) 0 % (0-1); EOSINOPHILS # (AUTO) 0.17 x10^3/uL (0-0.4); EOSINOPHILS % (AUTO) 2 % (1-7); LYMPHOCYTES # (AUTO) 1.49 x10^3/uL (1-3.4); LYMPHOCYTES % (AUTO) 14 % (22-44); MD SCAN; MONOCYTES # (AUTO) 0.47 x10^3/uL (0.2-0.8); MONOCYTES % (AUTO) 4 % (2-9); NEUTROPHILS # (AUTO) 8.87 x10^3/uL (1.8-6.8); NEUTROPHILS % (AUTO) 81 % (42-75)
[2019-06-08 07:15] VITALS: BP 139/78
[2019-06-08] MEDS: ONDANSETRON 4 MG TABLET PO PRN (07:34)
[2019-06-08] MEDS: SEVELAMER CARBONATE 800MG TAB PO SCH ×3 (07:35→17:10)
[2019-06-08] MEDS: LINAGLIPTIN 5 MG TAB PO SCH (07:35)
[2019-06-08] MEDS: TORSEMIDE 20 MG TABLET PO SCH (07:35)
[2019-06-08] MEDS: PANTOPRAZOLE 40MG TABLET PO SCH ×2 (07:35→19:59)
[2019-06-08] MEDS: INSULIN LISPRO 100 UNITS/ML, PEN SQ-INSULIN SCH ×4 (07:36→20:27)
[2019-06-08] MEDS: SENNA/DOCUSATE TABLET PO SCH (07:36)
[2019-06-08] MEDS: OXYcodone/APAP 5/325MG TABLET PO PRN ×2 (08:22→19:59)
[2019-06-08 14:47] VITALS: BP 158/75
[2019-06-08] MEDS: ERGOCALCIFEROL 50,000 UNIT CAPSULE PO SCH (14:50)
[2019-06-08 18:31] VITALS: BP 163/79
[2019-06-08] MEDS: ATORVASTATIN 40 MG TABLET PO SCH (19:58)
[2019-06-08] MEDS: CEFAZOLIN PMX 1GM/50ML 50 ML IV SCH (22:48)
[2019-06-09] VITALS (9 sets, daily range): BP systolic 102–203; BP diastolic 62–89
[2019-06-09] MEDS: ONDANSETRON 4 MG TABLET PO PRN ×3 (05:18→22:22)
[2019-06-09] MEDS: CARVEDILOL 3.125 MG TABLET PO SCH ×2 (05:18→19:55)
[2019-06-09] MEDS: HEPARIN 5,000 UNITS/ML, 1ML SQ SCH ×3 (05:19→22:22)
[2019-06-09 05:58] LABS: ANION GAP 6 mmol/L (5-15); CALCIUM 8.1 mg/dL (8.5-10.1); CHLORIDE 94 mmol/L (98-107)
[2019-06-09 06:00] LABS: CREATININE 3.98 mg/dL (0.55-1.02)
[2019-06-09 06:05] LABS: MEAN CORPUSCULAR HEMOGLOBIN 27.2 pg (27.0-34.8); MEAN CORPUSCULAR HGB CONC 31.9 g/dL (32.4-35.8); MEAN CORPUSCULAR VOLUME 85.5 fL (80-100); MEAN PLATELET VOLUME 7.4 fL (7.4-10.4); PLATELET COUNT 577 x10^3/uL (130-400); RED BLOOD COUNT 2.57 x10^6/uL (3.82-5.3); RED CELL DISTRIBUTION WIDTH 15.2 % (9.6-15.2)
[2019-06-09 06:27] LABS: BASOPHILS # (AUTO) 0.02 x10^3/uL (0-0.1); BASOPHILS % (AUTO) 0 % (0-1); EOSINOPHILS # (AUTO) 0.19 x10^3/uL (0-0.4); EOSINOPHILS % (AUTO) 2 % (1-7); LYMPHOCYTES # (AUTO) 1.19 x10^3/uL (1-3.4); LYMPHOCYTES % (AUTO) 10 % (22-44); MD SCAN; MONOCYTES # (AUTO) 0.52 x10^3/uL (0.2-0.8); MONOCYTES % (AUTO) 4 % (2-9); NEUTROPHILS # (AUTO) 10.44 x10^3/uL (1.8-6.8); NEUTROPHILS % (AUTO) 85 % (42-75)
[2019-06-09] MEDS: PANTOPRAZOLE 40MG TABLET PO SCH ×2 (07:41→19:55)
[2019-06-09] MEDS: TORSEMIDE 20 MG TABLET PO SCH (07:52)
[2019-06-09] MEDS: morphine SULFATE 10 MG/ML, 1ML IVPush PRN ×2 (07:53→15:41)
[2019-06-09] MEDS: IRON SUCROSE COMPLEX 100MG/5ML IV SCH (07:53)
[2019-06-09] MEDS: LINAGLIPTIN 5 MG TAB PO SCH (07:53)
[2019-06-09] MEDS: SENNA/DOCUSATE TABLET PO SCH (07:53)
[2019-06-09] MEDS: INSULIN LISPRO 100 UNITS/ML, PEN SQ-INSULIN SCH ×4 (07:55→19:55)
[2019-06-09] MEDS: SEVELAMER CARBONATE 800MG TAB PO SCH ×3 (07:55→17:04)
[2019-06-09 09:51] LABS: ALBUMIN 1.5 g/dL (3.4-5.0)
[2019-06-09 09:53] LABS: ALKALINE PHOSPHATASE 188 U/L (45-117); BILIRUBIN,TOTAL 0.1 mg/dL (0.2-1.0); TOTAL PROTEIN 6.6 g/dL (6.4-8.2)
[2019-06-09 09:54] LABS: BILIRUBIN, DIRECT < 0.1 mg/dL (0.1-0.2)
[2019-06-09 09:55] LABS: ALANINE AMINOTRANSFERASE < 6 U/L (12-78)
[2019-06-09] MEDS ORDERED: ARANESP 60 MCG/ML **ESRD SQ SCH (11:00)
[2019-06-09] MEDS ORDERED: SINCALIDE (KINEVAC) 5 MCG ONE (12:59)
[2019-06-09 15:53] LABS: ALBUMIN 1.7 g/dL (3.4-5.0)
[2019-06-09 15:55] LABS: ALKALINE PHOSPHATASE 176 U/L (45-117); BILIRUBIN,TOTAL 0.1 mg/dL (0.2-1.0); TOTAL PROTEIN 7.3 g/dL (6.4-8.2)
[2019-06-09 15:58] LABS: ALANINE AMINOTRANSFERASE < 6 U/L (12-78); BILIRUBIN, DIRECT < 0.1 mg/dL (0.1-0.2)
[2019-06-09] MEDS: OXYcodone/APAP 5/325MG TABLET PO PRN (19:55)
[2019-06-09] MEDS: ATORVASTATIN 40 MG TABLET PO SCH (19:55)
[2019-06-09] MEDS: CEFAZOLIN PMX 1GM/50ML 50 ML IV SCH (22:34)
[2019-06-10 02:08] VITALS: BP 169/74
[2019-06-10 05:35] LABS: ANION GAP 5 mmol/L (5-15); CALCIUM 8.6 mg/dL (8.5-10.1); CHLORIDE 102 mmol/L (98-107)
[2019-06-10 05:38] LABS: BASOPHILS # (AUTO) 0.07 x10^3/uL (0-0.1); BASOPHILS % (AUTO) 1 % (0-1); CREATININE 2.54 mg/dL (0.55-1.02); EOSINOPHILS # (AUTO) 0.06 x10^3/uL (0-0.4); EOSINOPHILS % (AUTO) 1 % (1-7); LYMPHOCYTES # (AUTO) 1.19 x10^3/uL (1-3.4); LYMPHOCYTES % (AUTO) 13 % (22-44); MD NO; MEAN CORPUSCULAR HEMOGLOBIN 27.3 pg (27.0-34.8); MEAN CORPUSCULAR HGB CONC 31.9 g/dL (32.4-35.8); MEAN CORPUSCULAR VOLUME 85.4 fL (80-100); MEAN PLATELET VOLUME 7.3 fL (7.4-10.4); MONOCYTES # (AUTO) 0.42 x10^3/uL (0.2-0.8); MONOCYTES % (AUTO) 5 % (2-9); NEUTROPHILS % (AUTO) 82 % (42-75); PLATELET COUNT 579 x10^3/uL (130-400); RED BLOOD COUNT 3.07 x10^6/uL (3.82-5.3); RED CELL DISTRIBUTION WIDTH 16.3 % (9.6-15.2)
[2019-06-10] MEDS: HEPARIN 5,000 UNITS/ML, 1ML SQ SCH ×3 (06:00→22:17)
[2019-06-10] MEDS: CARVEDILOL 3.125 MG TABLET PO SCH ×2 (06:00→18:16)
[2019-06-10] MEDS: ONDANSETRON 4 MG TABLET PO PRN ×3 (06:26→20:05)
[2019-06-10 06:30] VITALS: BP 158/89
[2019-06-10] MEDS: LINAGLIPTIN 5 MG TAB PO SCH (09:06)
[2019-06-10] MEDS: SEVELAMER CARBONATE 800MG TAB PO SCH ×3 (09:06→16:39)
[2019-06-10] MEDS: SENNA/DOCUSATE TABLET PO SCH (09:06)
[2019-06-10] MEDS: PANTOPRAZOLE 40MG TABLET PO SCH ×2 (09:06→22:18)
[2019-06-10] MEDS: TORSEMIDE 20 MG TABLET PO SCH (09:07)
[2019-06-10] MEDS: INSULIN LISPRO 100 UNITS/ML, PEN SQ-INSULIN SCH ×4 (09:07→22:17)
[2019-06-10 14:30] VITALS: BP 173/80
[2019-06-10] MEDS: OXYcodone/APAP 5/325MG TABLET PO PRN (15:38)
[2019-06-10] MEDS: hydrALAzine 20 MG/ML, 1ML IV PRN ×2 (15:39→22:30)
[2019-06-10 18:37] VITALS: BP 165/88
[2019-06-10] MEDS: ATORVASTATIN 40 MG TABLET PO SCH (22:18)
[2019-06-10 22:21] VITALS: BP 205/93
[2019-06-10] MEDS: CEFAZOLIN PMX 1GM/50ML 50 ML IV SCH (22:32)
[2019-06-11 00:16] VITALS: BP 164/86
[2019-06-11] MEDS: ONDANSETRON 4 MG TABLET PO PRN ×2 (05:02→11:56)
[2019-06-11 05:39] LABS: BASOPHILS # (AUTO) 0.03 x10^3/uL (0-0.1); BASOPHILS % (AUTO) 0 % (0-1); EOSINOPHILS # (AUTO) 0.06 x10^3/uL (0-0.4); EOSINOPHILS % (AUTO) 1 % (1-7); LYMPHOCYTES # (AUTO) 1.14 x10^3/uL (1-3.4); LYMPHOCYTES % (AUTO) 10 % (22-44); MD NO; MEAN CORPUSCULAR HEMOGLOBIN 27.3 pg (27.0-34.8); MEAN CORPUSCULAR HGB CONC 32.2 g/dL (32.4-35.8); MEAN CORPUSCULAR VOLUME 84.6 fL (80-100); MEAN PLATELET VOLUME 7.4 fL (7.4-10.4); MONOCYTES # (AUTO) 0.46 x10^3/uL (0.2-0.8); MONOCYTES % (AUTO) 4 % (2-9); NEUTROPHILS # (AUTO) 9.28 x10^3/uL (1.8-6.8); NEUTROPHILS % (AUTO) 85 % (42-75); PLATELET COUNT 566 x10^3/uL (130-400); RED BLOOD COUNT 3.15 x10^6/uL (3.82-5.3); RED CELL DISTRIBUTION WIDTH 16.8 % (9.6-15.2)
[2019-06-11 05:56] LABS: ANION GAP 7 mmol/L (5-15); CALCIUM 8.5 mg/dL (8.5-10.1); CHLORIDE 98 mmol/L (98-107); CREATININE 3.13 mg/dL (0.55-1.02)
[2019-06-11] MEDS: HEPARIN 5,000 UNITS/ML, 1ML SQ SCH ×3 (06:07→23:28)
[2019-06-11] MEDS: CARVEDILOL 3.125 MG TABLET PO SCH ×2 (06:08→16:56)
[2019-06-11 06:59] VITALS: BP 179/77
[2019-06-11] MEDS: PROMETHAZINE 25 MG/ML, 1ML IM PRN (08:31)
[2019-06-11] MEDS: hydrALAzine 20 MG/ML, 1ML IV PRN ×2 (08:31→16:20)
[2019-06-11] MEDS: INSULIN LISPRO 100 UNITS/ML, PEN SQ-INSULIN SCH ×4 (08:32→21:00)
[2019-06-11] MEDS ORDERED: EPOETIN 40,000 UNITS/ML IVPush SCH (09:00)
[2019-06-11] MEDS: PANTOPRAZOLE 40MG TABLET PO SCH ×2 (10:41→23:29)
[2019-06-11] MEDS: SENNA/DOCUSATE TABLET PO SCH (10:41)
[2019-06-11] MEDS: TORSEMIDE 20 MG TABLET PO SCH (10:42)
[2019-06-11] MEDS: LINAGLIPTIN 5 MG TAB PO SCH (10:42)
[2019-06-11] MEDS: ERGOCALCIFEROL 50,000 UNIT CAPSULE PO SCH (10:43)
[2019-06-11 12:17] VITALS: BP 195/82
[2019-06-11 14:12] VITALS: BP 168/79
[2019-06-11] MEDS: OXYcodone/APAP 5/325MG TABLET PO PRN (16:20)
[2019-06-11 18:44] VITALS: BP 145/70
[2019-06-11] MEDS: ATORVASTATIN 40 MG TABLET PO SCH (23:28)
[2019-06-11] MEDS: CEFAZOLIN PMX 1GM/50ML 50 ML IV SCH (23:29)
[2019-06-12 01:03] VITALS: BP 115/69
[2019-06-12] MEDS: CARVEDILOL 3.125 MG TABLET PO SCH ×2 (05:51→17:50)
[2019-06-12] MEDS: HEPARIN 5,000 UNITS/ML, 1ML SQ SCH ×3 (05:52→21:36)
[2019-06-12 07:51] VITALS: BP 163/84
[2019-06-12] MEDS: SENNA/DOCUSATE TABLET PO SCH (07:57)
[2019-06-12] MEDS: TORSEMIDE 20 MG TABLET PO SCH (07:57)
[2019-06-12] MEDS: INSULIN LISPRO 100 UNITS/ML, PEN SQ-INSULIN SCH ×4 (07:57→21:36)
[2019-06-12] MEDS: LINAGLIPTIN 5 MG TAB PO SCH (07:57)
[2019-06-12] MEDS: PANTOPRAZOLE 40MG TABLET PO SCH ×2 (07:57→21:35)
[2019-06-12] MEDS: ONDANSETRON 4 MG TABLET PO PRN (07:57)
[2019-06-12] MEDS: OXYcodone/APAP 5/325MG TABLET PO PRN ×2 (08:05→16:22)
[2019-06-12] MEDS: AMPICILLIN/SULBACTAM 3 GM in SODIUM CHLORIDE 0.9% 100 ML IV SCH (12:35)
[2019-06-12 13:23] VITALS: BP_SYST 120; BP_SYST 181; BP_DIAS 79; BP_DIAS 81
[2019-06-12 17:42] VITALS: BP 141/77
[2019-06-12 19:30] VITALS: BP 138/69
[2019-06-12] MEDS: ATORVASTATIN 40 MG TABLET PO SCH (21:35)
[2019-06-13] VITALS (7 sets, daily range): BP systolic 138–176; BP diastolic 71–81
[2019-06-13] MEDS: hydrALAzine 20 MG/ML, 1ML IV PRN ×2 (03:40→20:40)
[2019-06-13] MEDS: HEPARIN 5,000 UNITS/ML, 1ML SQ SCH ×3 (06:26→22:42)
[2019-06-13] MEDS: CARVEDILOL 3.125 MG TABLET PO SCH (06:26)
[2019-06-13] MEDS: PROMETHAZINE 25 MG/ML, 1ML IM PRN (07:18)
[2019-06-13] MEDS: INSULIN LISPRO 100 UNITS/ML, PEN SQ-INSULIN SCH ×4 (07:36→21:00)
[2019-06-13] MEDS: PANTOPRAZOLE 40MG TABLET PO SCH ×2 (09:03→20:43)
[2019-06-13] MEDS: TORSEMIDE 20 MG TABLET PO SCH (09:04)
[2019-06-13] MEDS: SENNA/DOCUSATE TABLET PO SCH (09:04)
[2019-06-13] MEDS: LINAGLIPTIN 5 MG TAB PO SCH (09:04)
[2019-06-13 09:24] LABS: BASOPHILS # (AUTO) 0.05 x10^3/uL (0-0.1); BASOPHILS % (AUTO) 1 % (0-1); EOSINOPHILS # (AUTO) 0.07 x10^3/uL (0-0.4); EOSINOPHILS % (AUTO) 1 % (1-7); LYMPHOCYTES # (AUTO) 0.97 x10^3/uL (1-3.4); LYMPHOCYTES % (AUTO) 9 % (22-44); MD NO; MEAN CORPUSCULAR HEMOGLOBIN 26.9 pg (27.0-34.8); MEAN CORPUSCULAR HGB CONC 31.2 g/dL (32.4-35.8); MEAN CORPUSCULAR VOLUME 86.3 fL (80-100); MEAN PLATELET VOLUME 7.2 fL (7.4-10.4); MONOCYTES # (AUTO) 0.37 x10^3/uL (0.2-0.8); MONOCYTES % (AUTO) 3 % (2-9); NEUTROPHILS # (AUTO) 9.42 x10^3/uL (1.8-6.8); NEUTROPHILS % (AUTO) 87 % (42-75); PLATELET COUNT 520 x10^3/uL (130-400); RED BLOOD COUNT 3.28 x10^6/uL (3.82-5.3); RED CELL DISTRIBUTION WIDTH 17.1 % (9.6-15.2)
[2019-06-13 09:36] LABS: ANION GAP 5 mmol/L (5-15); CALCIUM 8.4 mg/dL (8.5-10.1); CHLORIDE 102 mmol/L (98-107); CREATININE 3.49 mg/dL (0.55-1.02)
[2019-06-13] MEDS ORDERED: ARANESP 60 MCG/ML **ESRD SQ SCH (10:41)
[2019-06-13] MEDS: OXYcodone/APAP 5/325MG TABLET PO PRN ×2 (10:56→20:59)
[2019-06-13] MEDS: AMPICILLIN/SULBACTAM 3 GM in SODIUM CHLORIDE 0.9% 100 ML IV SCH (12:20)
[2019-06-13] MEDS: CARVEDILOL 6.25 MG TABLET PO SCH (18:08)
[2019-06-13] MEDS: ATORVASTATIN 40 MG TABLET PO SCH (20:43)
[2019-06-14 03:01] VITALS: BP 148/70
[2019-06-14] MEDS: CARVEDILOL 6.25 MG TABLET PO SCH ×2 (06:02→18:32)
[2019-06-14] MEDS: HEPARIN 5,000 UNITS/ML, 1ML SQ SCH ×3 (06:02→19:57)
[2019-06-14 06:08] LABS: BASOPHILS # (AUTO) 0.05 x10^3/uL (0-0.1); BASOPHILS % (AUTO) 1 % (0-1); EOSINOPHILS # (AUTO) 0.14 x10^3/uL (0-0.4); EOSINOPHILS % (AUTO) 2 % (1-7); LYMPHOCYTES # (AUTO) 1.51 x10^3/uL (1-3.4); LYMPHOCYTES % (AUTO) 18 % (22-44); MD NO; MEAN CORPUSCULAR HEMOGLOBIN 27.5 pg (27.0-34.8); MEAN CORPUSCULAR HGB CONC 31.9 g/dL (32.4-35.8); MEAN CORPUSCULAR VOLUME 86.3 fL (80-100); MEAN PLATELET VOLUME 7.6 fL (7.4-10.4); MONOCYTES # (AUTO) 0.43 x10^3/uL (0.2-0.8); MONOCYTES % (AUTO) 5 % (2-9); NEUTROPHILS % (AUTO) 75 % (42-75); PLATELET COUNT 454 x10^3/uL (130-400); RED BLOOD COUNT 2.93 x10^6/uL (3.82-5.3)
[2019-06-14 06:09] LABS: ALBUMIN 1.6 g/dL (3.4-5.0); ANION GAP 4 mmol/L (5-15); CALCIUM 8.1 mg/dL (8.5-10.1); CHLORIDE 102 mmol/L (98-107)
[2019-06-14 06:20] LABS: ALKALINE PHOSPHATASE 150 U/L (45-117); BILIRUBIN,TOTAL 0.2 mg/dL (0.2-1.0); CREATININE 3.89 mg/dL (0.55-1.02); TOTAL PROTEIN 6.5 g/dL (6.4-8.2)
[2019-06-14 06:31] LABS: ALANINE AMINOTRANSFERASE < 6 U/L (12-78)
[2019-06-14 06:37] VITALS: BP 159/76
[2019-06-14 06:39] LABS: HCT (SEDRATE) 25.3 % (34.6-47.8)
[2019-06-14] MEDS: LINAGLIPTIN 5 MG TAB PO SCH (08:05)
[2019-06-14] MEDS: PANTOPRAZOLE 40MG TABLET PO SCH ×2 (08:05→20:51)
[2019-06-14] MEDS: SENNA/DOCUSATE TABLET PO SCH (08:05)
[2019-06-14] MEDS: TORSEMIDE 20 MG TABLET PO SCH (08:06)
[2019-06-14] MEDS: INSULIN LISPRO 100 UNITS/ML, PEN SQ-INSULIN SCH ×4 (08:06→20:52)
[2019-06-14] MEDS: OXYcodone/APAP 5/325MG TABLET PO PRN ×2 (12:56→20:51)
[2019-06-14] MEDS: AMPICILLIN/SULBACTAM 3 GM in SODIUM CHLORIDE 0.9% 100 ML IV SCH (12:56)
[2019-06-14 13:05] VITALS: BP 152/63
[2019-06-14 18:33] VITALS: BP 166/74
[2019-06-14] MEDS: ATORVASTATIN 40 MG TABLET PO SCH (20:51)
[2019-06-15 01:23] VITALS: BP 133/79
[2019-06-15] MEDS: HEPARIN 5,000 UNITS/ML, 1ML SQ SCH ×3 (06:00→21:52)
[2019-06-15 06:26] VITALS: BP 181/87
[2019-06-15] MEDS: CARVEDILOL 6.25 MG TABLET PO SCH ×2 (06:27→18:07)
[2019-06-15] MEDS: hydrALAzine 20 MG/ML, 1ML IV PRN (06:27)
[2019-06-15 06:33] LABS: BASOPHILS # (AUTO) 0.04 x10^3/uL (0-0.1); BASOPHILS % (AUTO) 1 % (0-1); EOSINOPHILS # (AUTO) 0.22 x10^3/uL (0-0.4); EOSINOPHILS % (AUTO) 3 % (1-7); LYMPHOCYTES # (AUTO) 1.48 x10^3/uL (1-3.4); LYMPHOCYTES % (AUTO) 20 % (22-44); MD NO; MEAN CORPUSCULAR HEMOGLOBIN 27.4 pg (27.0-34.8); MEAN CORPUSCULAR HGB CONC 31.4 g/dL (32.4-35.8); MEAN PLATELET VOLUME 7.7 fL (7.4-10.4); MONOCYTES % (AUTO) 5 % (2-9); NEUTROPHILS # (AUTO) 5.19 x10^3/uL (1.8-6.8); NEUTROPHILS % (AUTO) 71 % (42-75); PLATELET COUNT 420 x10^3/uL (130-400); RED BLOOD COUNT 3.03 x10^6/uL (3.82-5.3); RED CELL DISTRIBUTION WIDTH 17.1 % (9.6-15.2)
[2019-06-15 06:42] LABS: ANION GAP 6 mmol/L (5-15); CALCIUM 8.5 mg/dL (8.5-10.1); CHLORIDE 103 mmol/L (98-107); CREATININE 2.74 mg/dL (0.55-1.02)
[2019-06-15] MEDS: INSULIN LISPRO 100 UNITS/ML, PEN SQ-INSULIN SCH ×4 (07:00→21:53)
[2019-06-15 07:10] VITALS: BP 159/73
[2019-06-15] MEDS ORDERED: FENTANYL PF 100 MCG/2ML ONE ×2 (08:30)
[2019-06-15] MEDS ORDERED: MIDAZOLAM 1 MG/ML, 5ML ONE (08:30)
[2019-06-15] MEDS ORDERED: NALOXONE 1 MG/ML, 2ML ONE (08:31)
[2019-06-15] MEDS ORDERED: FLUMAZENIL 0.1 MG/1 ML, 5ML ONE (08:31)
[2019-06-15] MEDS ORDERED: LIDOCAINE 1%, 20ML ONE (08:34)
[2019-06-15] MEDS ORDERED: ONDANSETRON 2MG/ML, 2ML ONE (08:56)
[2019-06-15] MEDS: SENNA/DOCUSATE TABLET PO SCH (10:21)
[2019-06-15] MEDS: TORSEMIDE 20 MG TABLET PO SCH (10:21)
[2019-06-15] MEDS: ERGOCALCIFEROL 50,000 UNIT CAPSULE PO SCH (10:21)
[2019-06-15] MEDS: OXYcodone/APAP 5/325MG TABLET PO PRN ×2 (10:21→16:36)
[2019-06-15] MEDS: LINAGLIPTIN 5 MG TAB PO SCH (10:21)
[2019-06-15] MEDS: PANTOPRAZOLE 40MG TABLET PO SCH ×2 (10:21→21:52)
[2019-06-15] MEDS: AMPICILLIN/SULBACTAM 3 GM in SODIUM CHLORIDE 0.9% 100 ML IV SCH (12:59)
[2019-06-15 13:50] VITALS: BP 165/83
[2019-06-15 18:08] VITALS: BP 163/67
[2019-06-15 21:41] VITALS: BP 167/88
[2019-06-15] MEDS: ATORVASTATIN 40 MG TABLET PO SCH (21:52)
[2019-06-16 03:39] VITALS: BP 169/84
[2019-06-16 05:08] LABS: BASOPHILS # (AUTO) 0.04 x10^3/uL (0-0.1); BASOPHILS % (AUTO) 1 % (0-1); EOSINOPHILS # (AUTO) 0.15 x10^3/uL (0-0.4); EOSINOPHILS % (AUTO) 2 % (1-7); LYMPHOCYTES # (AUTO) 1.25 x10^3/uL (1-3.4); LYMPHOCYTES % (AUTO) 19 % (22-44); MD NO; MEAN CORPUSCULAR HEMOGLOBIN 27.8 pg (27.0-34.8); MEAN CORPUSCULAR HGB CONC 31.8 g/dL (32.4-35.8); MEAN CORPUSCULAR VOLUME 87.5 fL (80-100); MEAN PLATELET VOLUME 7.6 fL (7.4-10.4); MONOCYTES # (AUTO) 0.41 x10^3/uL (0.2-0.8); MONOCYTES % (AUTO) 6 % (2-9); NEUTROPHILS # (AUTO) 4.83 x10^3/uL (1.8-6.8); NEUTROPHILS % (AUTO) 72 % (42-75); PLATELET COUNT 423 x10^3/uL (130-400); RED BLOOD COUNT 2.98 x10^6/uL (3.82-5.3); RED CELL DISTRIBUTION WIDTH 16.9 % (9.6-15.2)
[2019-06-16 05:09] LABS: ALBUMIN 1.8 g/dL (3.4-5.0); ANION GAP 5 mmol/L (5-15); CALCIUM 8.3 mg/dL (8.5-10.1); CHLORIDE 103 mmol/L (98-107)
[2019-06-16 05:10] LABS: CREATININE 3.17 mg/dL (0.55-1.02)
[2019-06-16] MEDS: CARVEDILOL 6.25 MG TABLET PO SCH ×2 (06:26→18:16)
[2019-06-16] MEDS: HEPARIN 5,000 UNITS/ML, 1ML SQ SCH ×2 (06:26→14:24)
[2019-06-16 08:00] VITALS: BP 159/66
[2019-06-16] MEDS: INSULIN LISPRO 100 UNITS/ML, PEN SQ-INSULIN SCH ×3 (08:26→16:38)
[2019-06-16] MEDS: TORSEMIDE 20 MG TABLET PO SCH (08:26)
[2019-06-16] MEDS: LINAGLIPTIN 5 MG TAB PO SCH (08:26)
[2019-06-16] MEDS: PANTOPRAZOLE 40MG TABLET PO SCH (08:26)
[2019-06-16] MEDS: SENNA/DOCUSATE TABLET PO SCH (08:26)
[2019-06-16] MEDS: POLYETHYLENE GLYCOL 17 GM PACKET PO PRN (08:27)
[2019-06-16] MEDS: ONDANSETRON 4 MG TABLET PO PRN (10:09)
[2019-06-16] MEDS ORDERED: ARANESP 60 MCG/ML **ESRD SQ SCH ×2 (12:00→13:36)
[2019-06-16] MEDS ORDERED: AMOX1TAB64 PO (14:13)
[2019-06-16] MEDS ORDERED: ERGO500017 PO (14:13)
[2019-06-16] MEDS ORDERED: TORS20TA2 PO (14:13)
[2019-06-16] MEDS ORDERED: DARB60VI SQ (14:13)
[2019-06-16] MEDS ORDERED: CARV6.2512 PO (14:13)
[2019-06-16] MEDS: AMPICILLIN/SULBACTAM 3 GM in SODIUM CHLORIDE 0.9% 100 ML IV SCH (14:24)
[2019-06-16] MEDS: OXYcodone/APAP 5/325MG TABLET PO PRN (14:26)
[2019-06-16] MEDS ORDERED: OXYC-302 PO (14:45)
[2019-06-16 18:13] VITALS: BP 149/87
== END 2019-06-16 19:01 | disposition home health service (06) | DRG 853 ==
LOC: ED 15:18 → EDIP 16:56 → 4NE 19:03
PROVIDERS: ADMIT Family Medicine; ATTEND Hospitalist
PROC: 0Y6N0ZF Detachment at Left Foot, Partial 5th Ray, Open Approach (ICD-10-PCS; principal; 2019-05-31 07:30)
PROC: 0Y6M0ZF Detachment at Right Foot, Partial 5th Ray, Open Approach (ICD-10-PCS; 2019-06-02)
PROC: 0Y6M0ZD Detachment at Right Foot, Partial 4th Ray, Open Approach (ICD-10-PCS; 2019-06-02)
PROC: 0Y6M0ZC Detachment at Right Foot, Partial 3rd Ray, Open Approach (ICD-10-PCS; 2019-06-02)
PROC: 0Y6M0ZB Detachment at Right Foot, Partial 2nd Ray, Open Approach (ICD-10-PCS; 2019-06-02)
PROC: 0Y6M0Z9 Detachment at Right Foot, Partial 1st Ray, Open Approach (ICD-10-PCS; 2019-06-02)
PROC: 02HV33Z Insertion of Infusion Device into Superior Vena Cava, Percutaneous Approach (ICD-10-PCS; 2019-06-03)
PROC: B5181ZA Fluoroscopy of Superior Vena Cava using Low Osmolar Contrast, Guidance (ICD-10-PCS; 2019-06-03)
PROC: B548ZZA Ultrasonography of Superior Vena Cava, Guidance (ICD-10-PCS; 2019-06-03)
PROC: 5A1D70Z Performance of Urinary Filtration, Intermittent, Less than 6 Hours Per Day (ICD-10-PCS; 2019-06-07)
PROC: 5A1D70Z Performance of Urinary Filtration, Intermittent, Less than 6 Hours Per Day (ICD-10-PCS; 2019-06-08)
PROC: 5A1D70Z Performance of Urinary Filtration, Intermittent, Less than 6 Hours Per Day (ICD-10-PCS; 2019-06-09)
PROC: 30233N1 Transfusion of Nonautologous Red Blood Cells into Peripheral Vein, Percutaneous Approach (ICD-10-PCS; 2019-06-09)
PROC: 5A1D70Z Performance of Urinary Filtration, Intermittent, Less than 6 Hours Per Day (ICD-10-PCS; 2019-06-11)
PROC: 5A1D70Z Performance of Urinary Filtration, Intermittent, Less than 6 Hours Per Day (ICD-10-PCS; 2019-06-14)
PROC: 0JH63XZ Insertion of Tunneled Vascular Access Device into Chest Subcutaneous Tissue and Fascia, Percutaneous Approach (ICD-10-PCS; 2019-06-15)
PROC: 02HV33Z Insertion of Infusion Device into Superior Vena Cava, Percutaneous Approach (ICD-10-PCS; 2019-06-15)
PROC: B5181ZA Fluoroscopy of Superior Vena Cava using Low Osmolar Contrast, Guidance (ICD-10-PCS; 2019-06-15)
PROC: B548ZZA Ultrasonography of Superior Vena Cava, Guidance (ICD-10-PCS; 2019-06-15)
PROC: 5A1D70Z Performance of Urinary Filtration, Intermittent, Less than 6 Hours Per Day (ICD-10-PCS; 2019-06-16)
DX: A41.9 Sepsis, unspecified organism (principal); E43 Unspecified severe protein-calorie malnutrition; N17.0 Acute kidney failure with tubular necrosis; E87.1 Hypo-osmolality and hyponatremia; N18.4 Chronic kidney disease, stage 4 (severe); I13.0 Hypertensive heart and chronic kidney disease with heart failure and stage 1 through stage 4 chronic kidney disease, or unspecified chronic kidney disease; I50.32 Chronic diastolic (congestive) heart failure; K81.0 Acute cholecystitis; L02.612 Cutaneous abscess of left foot; L03.115 Cellulitis of right lower limb; M86.171 Other acute osteomyelitis, right ankle and foot; E11.52 Type 2 diabetes mellitus with diabetic peripheral angiopathy with gangrene; I96 Gangrene, not elsewhere classified; Z88.6 Allergy status to analgesic agent; Z88.8 Allergy status to other drugs, medicaments and biological substances; Z68.36 Body mass index [BMI] 36.0-36.9, adult; D63.1 Anemia in chronic kidney disease; E11.22 Type 2 diabetes mellitus with diabetic chronic kidney disease; E11.42 Type 2 diabetes mellitus with diabetic polyneuropathy; E11.65 Type 2 diabetes mellitus with hyperglycemia; E11.621 Type 2 diabetes mellitus with foot ulcer; E11.69 Type 2 diabetes mellitus with other specified complication; E66.01 Morbid (severe) obesity due to excess calories; E78.5 Hyperlipidemia, unspecified; F12.90 Cannabis use, unspecified, uncomplicated; F15.90 Other stimulant use, unspecified, uncomplicated; F41.1 Generalized anxiety disorder; I25.2 Old myocardial infarction; K82.8 Other specified diseases of gallbladder; L97.519 Non-pressure chronic ulcer of other part of right foot with unspecified severity; M19.90 Unspecified osteoarthritis, unspecified site; T36.8X5A Adverse effect of other systemic antibiotics, initial encounter; Z79.4 Long term (current) use of insulin; Z82.49 Family history of ischemic heart disease and other diseases of the circulatory system; Z82.5 Family history of asthma and other chronic lower respiratory diseases; Z83.3 Family history of diabetes mellitus; Z88.5 Allergy status to narcotic agent; Z89.429 Acquired absence of other toe(s), unspecified side; Z99.2 Dependence on renal dialysis
CPT/HCPCS: 36415; 36556; 36558; 76705; 76770; 76937; 76942; 77001; 78227; 80048; 80053; 80069; 80076; 80202; 81001; 82040; 82043; 82306; 82570; 82728; 82962; 83036; 83540; 83550; 83605; 83735; 83880; 83970; 84100; 84156; 84295; 84300; 84443; 84550; 84702; 85025; 85651; 86140; 86480; 86705; 86706; 86803; 86850; 86900; 86923; 87040; 87070; 87075; 87077; 87086; 87102; 87147; 87176; 87181; 87186; 87205; 87340; 88305; 90935; 93005; 93306; 93922; 96365; 96375; 99156; 99157; G0378; J0295; J0690; J0696; J0882; J1644; J1756; J1940; J2250; J2405; J2543; J2550; J2704; J3010; J3370; J3490; J7070; Q0162; A9537; C1750; C1751; C9898; J0330; J0360; J1642; J1815; J2270; J2310; J2370; J2765; J2805; J7030; J7050; J7120; P9016

== ENCOUNTER 2019-08-31 13:55 | Inpatient (IN) | payer OTHER, MEDICAID ==
[~2019-08-31] VITALS: Ht 162.6 cm; Wt 87.3 kg
[~2019-08-31 13:55] MED LIST changes: +ACID1TAB7 PO; +AMOX1TAB64 PO; +CARV6.2512 PO; +DARB60VI SQ; +ERGO500017 PO; +ISOS10TA2 PO; +OXYC-302 PO; -PANT40TA5 PO; +PANT40TA6 PO; +TORS20TA2 PO
[2019-08-31] MEDS ORDERED: ONDANSETRON 2MG/ML, 2ML IVPush ONE (14:30)
[2019-08-31] MEDS ORDERED: ONDANSETRON 2MG/ML, 2ML ONE (14:42)
[2019-08-31] MEDS ORDERED: MORPHINE SULFATE 4 MG/ML, 1ML ONE ×2 (14:43→17:10)
[2019-08-31] MEDS: MORPHINE SULFATE 4 MG/ML, 1ML IVPush PRN ×2 (14:48→17:12)
[2019-08-31 14:51] LABS: BASOPHILS # (AUTO) 0.03 x10^3/uL (0-0.1); BASOPHILS % (AUTO) 0 % (0-1); EOSINOPHILS # (AUTO) 0.09 x10^3/uL (0-0.4); EOSINOPHILS % (AUTO) 1 % (1-7); LYMPHOCYTES # (AUTO) 1.45 x10^3/uL (1-3.4); LYMPHOCYTES % (AUTO) 18 % (22-44); MD NO; MEAN CORPUSCULAR HEMOGLOBIN 28.6 pg (27.0-34.8); MEAN CORPUSCULAR HGB CONC 32.1 g/dL (32.4-35.8); MEAN PLATELET VOLUME 7.3 fL (7.4-10.4); MONOCYTES % (AUTO) 4 % (2-9); NEUTROPHILS # (AUTO) 6.21 x10^3/uL (1.8-6.8); NEUTROPHILS % (AUTO) 77 % (42-75); PLATELET COUNT 327 x10^3/uL (130-400); RED BLOOD COUNT 3.96 x10^6/uL (3.82-5.3); RED CELL DISTRIBUTION WIDTH 16.4 % (9.6-15.2)
--- NOTE | 2019-08-31 15:02 | NUR ---
TASK RN: PT RESTING ON GURNEY. NADN. FLOWERSS. PIV INITIATED AND PT MEDICATED PER APR.
[2019-08-31 15:06] LABS: ALANINE AMINOTRANSFERASE 26 U/L (12-78); ALBUMIN 2.5 g/dL (3.4-5.0); ANION GAP 6 mmol/L (5-15); CALCIUM 8.1 mg/dL (8.5-10.1); CHLORIDE 107 mmol/L (98-107)
[2019-08-31 15:08] LABS: ALKALINE PHOSPHATASE 202 U/L (45-117); BILIRUBIN,TOTAL 0.3 mg/dL (0.2-1.0); TOTAL PROTEIN 6.7 g/dL (6.4-8.2)
[2019-08-31 15:42] LABS: INTERNATIONAL NORMALIZED RATIO 0.9 (0.93-1.1); PROTHROMBIN TIME 9.5 Seconds (9.6-11.5)
[2019-08-31 15:56] LABS: MICROSCOPIC AUTO
[2019-08-31] MEDS ORDERED: DEXTROSE 50%, 50ML SYRINGE IVPush ONE (16:30)
[2019-08-31] MEDS ORDERED: INSULIN SINGLE DOSE, ER ONE (16:30)
[2019-08-31] MEDS ORDERED: FUROSEMIDE 40 MG/4 ML IVPush ONE (16:30)
[2019-08-31] MEDS ORDERED: SODIUM POLY SULFONATE UDC 15 GM/60 ML PO ONE (16:30)
[2019-08-31] MEDS ORDERED: INSULIN REGULAR 100 UNITS/ML, 3ML VIAL IVPush ONE (16:30)
[2019-08-31] MEDS ORDERED: ENOXAPARIN 40 MG/0.4 ML SQ SCH (17:00)
[2019-08-31] MEDS ORDERED: ERGOCALCIFEROL 50,000 UNIT CAPSULE PO SCH (17:00)
[2019-08-31] MEDS ORDERED: ONDANSETRON ODT 4 MG PO PRN (17:00)
[2019-08-31] MEDS ORDERED: BUTALB/APAP/CAFFEINE 50MG/325MG/40MG PO PRN ×2 (17:00)
[2019-08-31] MEDS ORDERED: OXYcodone/APAP 5/325MG TABLET PO PRN (17:00)
[2019-08-31] MEDS ORDERED: ONDANSETRON 2MG/ML, 2ML IVPush PRN (17:00)
[2019-08-31] MEDS ORDERED: BACLOFEN 10 MG TABLET PO PRN (17:00)
[2019-08-31] MEDS ORDERED: DARBEPOETIN 60 MCG/ML SQ SCH (17:00)
[2019-08-31] MEDS ORDERED: MELATONIN 5 MG TABLET PO PRN (17:00)
[2019-08-31] MEDS ORDERED: GUAIFENESIN/DM 200-20MG, 10ML UDC PO PRN (17:00)
[2019-08-31] MEDS ORDERED: LABETALOL 5MG/ML, 20ML IVPush PRN (17:00)
[2019-08-31] MEDS ORDERED: ONDANSETRON 4 MG TABLET PO PRN (17:00)
[2019-08-31] MEDS ORDERED: hydrALAzine 20 MG/ML, 1ML IVPush PRN (17:00)
[2019-08-31] MEDS ORDERED: METHOCARBAMOL 750 MG TABLET PO PRN (17:00)
[2019-08-31] MEDS ORDERED: SODIUM ZIRCONIUM CYCLOSILICATE 10 GM PO ONE (17:00)
[2019-08-31] MEDS ORDERED: ENOXAPARIN 40 MG/0.4 ML ONE (17:08)
[2019-08-31] MEDS ORDERED: FUROSEMIDE 40 MG/4 ML ONE (17:08)
[2019-08-31] MEDS ORDERED: DEXTROSE 50%, 50ML SYRINGE ONE (17:08)
[2019-08-31] MEDS ORDERED: INSULIN LISPRO SINGLE DOSE, ER SQ-INSULIN ONE (17:09)
--- NOTE | 2019-08-31 19:30 | NUR ---
bAbie romero in [facility] - 08/31/19 at 2303 by RASHID Hospital bed ordered. Awaiting arrival.
[2019-08-31] MEDS ORDERED: CARVEDILOL 12.5 MG TABLET ONE (19:49)
[2019-08-31] MEDS: CARVEDILOL 12.5 MG TABLET PO SCH (20:22)
[2019-08-31] MEDS ORDERED: GABAPENTIN 300 MG CAPSULE ONE (20:49)
[2019-08-31] MEDS ORDERED: PANTOPRAZOLE 20MG TABLET ONE (20:49)
--- NOTE | 2019-08-31 20:52 | NUR ---
Pt report from Vladimir cline. This rn to assume care of pt. Requesting medication from rx at this time.
[2019-08-31] MEDS: INSULIN LISPRO 100 UNITS/ML, PEN SQ-INSULIN SCH (21:00)
--- NOTE | 2019-08-31 21:00 | NUR ---
Pt presented to ed c/o increased sob and fever chills. Denies any recent contact w/ covid pts. States hx of renal failure. Schedule of MWF. Last dialysis last friday. 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 Has Dialysis port on R side chest noted.
--- NOTE | 2019-08-31 21:30 | NUR ---
Hospital bed ordered. Awaiting arrival.
[2019-08-31] MEDS: LACTOBACILLUS CHEW TABLET PO SCH (21:48)
[2019-08-31] MEDS: GABAPENTIN 300 MG CAPSULE PO SCH (21:48)
[2019-08-31] MEDS: ATORVASTATIN 40 MG TABLET PO SCH (21:49)
[2019-08-31] MEDS: PANTOPRAZOLE 40MG TABLET PO SCH (21:49)
[2019-08-31] MEDS: ISOSORBIDE DINITRATE 10 MG TABLET PO SCH (21:50)
--- NOTE | 2019-08-31 22:52 | NUR ---
No needs from pt. Pt sleeping comfortably on [facility]. Monitoring remains intact.
[2019-08-31] MEDS ORDERED: ACETAMINOPHEN 325 MG TABLET ONE (23:29)
[2019-08-31] MEDS: ACETAMINOPHEN 325 MG TABLET PO PRN (23:43)
--- NOTE | 2019-08-31 23:43 | NUR ---
Pt given prn tylenol for rivera of 3 per pt report. Tx to hospital bed at this time. No further needs from pt. Fresh water and diet sprite given to pt.
--- NOTE | 2019-09-01 00:57 | NUR ---
Pt sleeping comfortably on hospital bed. Rr even and unlabored. Nadn.
--- NOTE | 2019-09-01 03:13 | NUR ---
Pt desat to mid 80's while asleep and put on 2 L nc. Sat maintain above 90 with sup O2.
--- NOTE | 2019-09-01 04:29 | NUR ---
Pt sleeping comfortably on gurney. Nadn. Rr even and unlabored.
--- NOTE | 2019-09-01 04:38 | NUR ---
Pt report to Candida cline.
[2019-09-01 05:49] LABS: BASOPHILS # (AUTO) 0.04 x10^3/uL (0-0.1); BASOPHILS % (AUTO) 1 % (0-1); EOSINOPHILS # (AUTO) 0.17 x10^3/uL (0-0.4); EOSINOPHILS % (AUTO) 2 % (1-7); LYMPHOCYTES # (AUTO) 2.01 x10^3/uL (1-3.4); LYMPHOCYTES % (AUTO) 27 % (22-44); MD NO; MEAN CORPUSCULAR HEMOGLOBIN 28.7 pg (27.0-34.8); MEAN CORPUSCULAR HGB CONC 31.8 g/dL (32.4-35.8); MEAN PLATELET VOLUME 7.5 fL (7.4-10.4); MONOCYTES # (AUTO) 0.33 x10^3/uL (0.2-0.8); MONOCYTES % (AUTO) 4 % (2-9); NEUTROPHILS # (AUTO) 4.94 x10^3/uL (1.8-6.8); NEUTROPHILS % (AUTO) 66 % (42-75); PLATELET COUNT 302 x10^3/uL (130-400); RED BLOOD COUNT 3.98 x10^6/uL (3.82-5.3); RED CELL DISTRIBUTION WIDTH 16.7 % (9.6-15.2)
[2019-09-01] MEDS ORDERED: CARVEDILOL 12.5 MG TABLET ONE (06:32)
[2019-09-01] MEDS: CARVEDILOL 12.5 MG TABLET PO SCH ×2 (06:35→17:45)
[2019-09-01 07:57] LABS: C-REACTIVE PROTEIN, QUANT 0.46 mg/dL (0.02-0.49)
--- NOTE | 2019-09-01 08:00 | NUR ---
MED REQUEST TO PHARMACY AT THIS TIME
[2019-09-01 08:03] LABS: HCT (SEDRATE) 35.9 % (34.6-47.8)
[2019-09-01] MEDS: CITALOPRAM 20 MG TABLET PO SCH (09:00)
[2019-09-01] MEDS: INSULIN LISPRO 100 UNITS/ML, PEN SQ-INSULIN SCH ×4 (09:16→23:00)
[2019-09-01] MEDS: PANTOPRAZOLE 40MG TABLET PO SCH ×2 (09:25→20:57)
[2019-09-01] MEDS: GABAPENTIN 300 MG CAPSULE PO SCH ×3 (09:26→20:57)
[2019-09-01] MEDS: TORSEMIDE 20 MG TABLET PO SCH (09:26)
[2019-09-01] MEDS: ISOSORBIDE DINITRATE 10 MG TABLET PO SCH ×3 (09:26→21:00)
[2019-09-01] MEDS: LACTOBACILLUS CHEW TABLET PO SCH ×3 (09:26→20:57)
--- NOTE | 2019-09-01 09:44 | NUR ---
REPORT RECEIVED FROM EVARISTO WALKER.
--- NOTE | 2019-09-01 10:41 | NUR ---
PT RESTING IN BED, GIVEN MEAL TRAY BY TASK RN. PT REMAINS ON MONITORS, VSS. AWAITING ADMIT BED. CONT TO MONITOR.
--- NOTE | 2019-09-01 11:30 | NUR ---
PT SLEEPING IN BED, NO DISTRESS. PT REMAINS ON MONITORS, VSS. PT AWAITING ADMIT BED. CONT TO MONITOR.
--- NOTE | 2019-09-01 12:38 | NUR ---
PT RESTING IN BED, NO DISTRESS. MEDICATION REQUESTED FROM PHARMACY. PT REMAINS ON MONITORS, VSS. CONT TO MONITOR.
--- NOTE | 2019-09-01 14:00 | NUR ---
SPOKE WITH DIALYSIS, UNAWARE PT IS COVID R/O. PT WILL BE UNABLE TO DO DIALYSIS ON 4TH FLOOR PER RECEIVING ASSOC[facility]ATE [facility]ORE, WILL NEED TO WAIT UNTIL BED RECEIVED ON COVID FLOOR BEFORE PT RECEIVED DIALYSIS.
--- NOTE | 2019-09-01 14:21 | NUR ---
WOUND CARE AT BEDSIDE FOR TX.
--- NOTE | 2019-09-01 15:51 | NUR ---
PT SLEEPING IN BED, NO DISTRESS. AWAITING ADMIT BED. PT REMAINS ON MONITORS, VSS. CONT TO MONITOR.
[2019-09-01] MEDS ORDERED: GABAPENTIN 300 MG CAPSULE ONE (16:17)
--- NOTE | 2019-09-01 16:59 | NUR ---
PT UP TO BEDSIDE COMMODE, STANDBY ASSIST. PT BACK TO BED, REMAINS ON MONITORS. MEAL TRAY ORDERED. CONT TO MONITOR.
[2019-09-01] MEDS ORDERED: ENOXAPARIN 30 MG/0.3 ML SQ SCH (17:00)
--- NOTE | 2019-09-01 17:14 | NUR ---
PT GIVEN MEAL TRAY.
--- NOTE | 2019-09-01 17:54 | NUR ---
ATTEMPT X1 TO CALL REPORT TO FLOOR, FLOOR RN UNAVAILABLE.
--- NOTE | 2019-09-01 18:26 | NUR ---
REPORT GIVEN TO NISHA WALKER.
--- NOTE | 2019-09-01 18:52 | NUR ---
PT AWAITING TRANSPORT TO FLOOR.
--- NOTE | 2019-09-01 19:06 | NUR ---
PT TRANSFERED TO FLOOR. HAS ALL OWN BELONGINGS UPON TRANSFER.
[2019-09-01 20:45] VITALS: BP 184/82
[2019-09-01] MEDS: CEFTRIAXONE PMX 1GM/50ML 50 ML IV SCH (20:45)
[2019-09-01] MEDS: ATORVASTATIN 40 MG TABLET PO SCH (20:57)
[2019-09-01 21:14] VITALS: BP 144/77
[2019-09-01] MEDS: ACETAMINOPHEN 325 MG TABLET PO PRN (22:52)
[2019-09-02 03:01] VITALS: BP 139/75
[2019-09-02 05:17] LABS: BASOPHILS # (AUTO) 0.03 x10^3/uL (0-0.1); BASOPHILS % (AUTO) 0 % (0-1); EOSINOPHILS % (AUTO) 1 % (1-7); LYMPHOCYTES # (AUTO) 1.77 x10^3/uL (1-3.4); LYMPHOCYTES % (AUTO) 21 % (22-44); MD NO; MEAN CORPUSCULAR HEMOGLOBIN 28.7 pg (27.0-34.8); MEAN PLATELET VOLUME 7.5 fL (7.4-10.4); MONOCYTES % (AUTO) 4 % (2-9); NEUTROPHILS % (AUTO) 75 % (42-75); PLATELET COUNT 284 x10^3/uL (130-400); RED BLOOD COUNT 3.82 x10^6/uL (3.82-5.3); RED CELL DISTRIBUTION WIDTH 16.3 % (9.6-15.2)
[2019-09-02 05:32] LABS: ALBUMIN 2.2 g/dL (3.4-5.0); ANION GAP 4 mmol/L (5-15); CHLORIDE 103 mmol/L (98-107)
[2019-09-02 05:34] LABS: CREATININE 3.41 mg/dL (0.55-1.02)
[2019-09-02] MEDS: CARVEDILOL 12.5 MG TABLET PO SCH ×2 (06:34→22:46)
[2019-09-02] MEDS: CEFTRIAXONE PMX 1GM/50ML 50 ML IV SCH ×2 (08:10→22:44)
[2019-09-02] MEDS: ISOSORBIDE DINITRATE 10 MG TABLET PO SCH ×3 (08:11→22:46)
[2019-09-02] MEDS: TORSEMIDE 20 MG TABLET PO SCH (08:12)
[2019-09-02] MEDS: LACTOBACILLUS CHEW TABLET PO SCH ×3 (08:12→22:45)
[2019-09-02] MEDS: GABAPENTIN 300 MG CAPSULE PO SCH (08:12)
[2019-09-02] MEDS: PANTOPRAZOLE 40MG TABLET PO SCH ×2 (08:13→22:45)
[2019-09-02] MEDS: INSULIN LISPRO 100 UNITS/ML, PEN SQ-INSULIN SCH ×4 (08:13→22:47)
[2019-09-02] MEDS: CITALOPRAM 20 MG TABLET PO SCH (08:13)
[2019-09-02 08:40] VITALS: BP 137/65
[2019-09-02 12:43] VITALS: BP 147/67
[2019-09-02] MEDS: GABAPENTIN 100 MG CAPSULE PO SCH ×2 (15:49→22:46)
[2019-09-02 19:12] LABS: TROPONIN I < 0.015 ng/mL (0.000-0.045)
[2019-09-02 20:33] VITALS: BP 117/65
[2019-09-02] MEDS: ATORVASTATIN 40 MG TABLET PO SCH (22:45)
[2019-09-03 01:15] VITALS: BP 148/64
[2019-09-03] MEDS: CARVEDILOL 12.5 MG TABLET PO SCH ×2 (06:24→18:05)
[2019-09-03 06:26] LABS: TROPONIN I < 0.015 ng/mL (0.000-0.045)
[2019-09-03 06:54] VITALS: BP 103/58
[2019-09-03] MEDS: HEPARIN 5,000 UNITS/ML, 1ML SQ SCH ×2 (08:07→20:00)
[2019-09-03] MEDS: INSULIN LISPRO 100 UNITS/ML, PEN SQ-INSULIN SCH ×4 (08:07→22:40)
[2019-09-03] MEDS: TORSEMIDE 20 MG TABLET PO SCH (08:08)
[2019-09-03] MEDS: GABAPENTIN 100 MG CAPSULE PO SCH ×3 (08:08→22:40)
[2019-09-03] MEDS: CITALOPRAM 20 MG TABLET PO SCH (08:08)
[2019-09-03] MEDS: CEFTRIAXONE PMX 1GM/50ML 50 ML IV SCH ×2 (08:08→22:39)
[2019-09-03] MEDS: PANTOPRAZOLE 40MG TABLET PO SCH ×2 (08:08→21:00)
[2019-09-03] MEDS: LACTOBACILLUS CHEW TABLET PO SCH ×3 (08:08→22:40)
[2019-09-03] MEDS: ISOSORBIDE DINITRATE 10 MG TABLET PO SCH ×3 (08:14→22:39)
[2019-09-03 12:31] VITALS: BP 114/71
[2019-09-03 18:06] VITALS: BP 151/89
[2019-09-03] MEDS: ATORVASTATIN 40 MG TABLET PO SCH (22:40)
[2019-09-03 22:47] VITALS: BP 179/83
[2019-09-04 01:00] VITALS: BP 167/84
[2019-09-04] MEDS: CARVEDILOL 12.5 MG TABLET PO SCH (06:00)
[2019-09-04 06:20] VITALS: BP 122/68
[2019-09-04 06:33] LABS: BASOPHILS # (AUTO) 0.03 x10^3/uL (0-0.1); BASOPHILS % (AUTO) 1 % (0-1); EOSINOPHILS # (AUTO) 0.04 x10^3/uL (0-0.4); EOSINOPHILS % (AUTO) 1 % (1-7); LYMPHOCYTES # (AUTO) 1.97 x10^3/uL (1-3.4); LYMPHOCYTES % (AUTO) 32 % (22-44); MD NO; MEAN CORPUSCULAR HEMOGLOBIN 28.5 pg (27.0-34.8); MEAN CORPUSCULAR HGB CONC 31.5 g/dL (32.4-35.8); MEAN PLATELET VOLUME 7.5 fL (7.4-10.4); MONOCYTES % (AUTO) 5 % (2-9); NEUTROPHILS # (AUTO) 3.79 x10^3/uL (1.8-6.8); NEUTROPHILS % (AUTO) 62 % (42-75); PLATELET COUNT 281 x10^3/uL (130-400); RED BLOOD COUNT 3.89 x10^6/uL (3.82-5.3); RED CELL DISTRIBUTION WIDTH 15.8 % (9.6-15.2)
[2019-09-04 06:38] LABS: ALBUMIN 2.4 g/dL (3.4-5.0); ANION GAP 6 mmol/L (5-15); CALCIUM 9.1 mg/dL (8.5-10.1); CHLORIDE 99 mmol/L (98-107); CREATININE 2.32 mg/dL (0.55-1.02)
[2019-09-04] MEDS ORDERED: GABA-826 PO ×2 (07:25)
[2019-09-04] MEDS: INSULIN LISPRO 100 UNITS/ML, PEN SQ-INSULIN SCH ×2 (08:51→11:00)
[2019-09-04] MEDS: HEPARIN 5,000 UNITS/ML, 1ML SQ SCH (08:52)
[2019-09-04] MEDS: LACTOBACILLUS CHEW TABLET PO SCH (08:54)
[2019-09-04] MEDS: CEFTRIAXONE PMX 1GM/50ML 50 ML IV SCH (08:54)
[2019-09-04] MEDS: TORSEMIDE 20 MG TABLET PO SCH (08:55)
[2019-09-04] MEDS: ISOSORBIDE DINITRATE 10 MG TABLET PO SCH (08:56)
[2019-09-04] MEDS: CITALOPRAM 20 MG TABLET PO SCH (08:56)
[2019-09-04] MEDS: PANTOPRAZOLE 40MG TABLET PO SCH (08:57)
[2019-09-04] MEDS: GABAPENTIN 100 MG CAPSULE PO SCH (08:57)
[2019-10-07] MEDS ORDERED: PRAMIPEXOLE 0.25MG TABLET ONE (19:53)
[2019-10-08] MEDS ORDERED: PRAMIPEXOLE 0.25MG TABLET ONE (19:36)
[2019-10-08] MEDS ORDERED: QUETIAPINE 25MG TABLET ONE (19:36)
[2019-10-09] MEDS ORDERED: TRAZODONE 50MG TABLET ONE (20:09)
[2019-10-09] MEDS ORDERED: DILTIAZEM 240 MG CAP.ER.24H ONE (20:09)
[2019-10-15] MEDS ORDERED: SULF1TAB23 PO ×2 (11:26)
[2019-10-15] MEDS ORDERED: MUPI22OI2 TP (11:26)
[2019-10-21] MEDS ORDERED: PANT40TA6 PO (13:50)
[2019-10-21] MEDS ORDERED: HYDR-3341 PO (13:50)
[2019-10-21] MEDS ORDERED: CEPH-376 PO (13:50)
[2019-10-21] MEDS ORDERED: ATOR40TA78 PO (13:50)
[2019-10-21] MEDS ORDERED: INSU100I13 SQ-INSULIN (13:50)
[2019-10-21] MEDS ORDERED: SEVE800T8 PO (13:50)
[2019-10-21] MEDS ORDERED: ACID1TAB7 PO (13:50)
[2019-10-21] MEDS ORDERED: CARV6.2512 PO (13:50)
== END 2019-09-04 12:57 | disposition home or self-care (01) | DRG 640 ==
LOC: ED 15:12 → EDIP 16:28 → 4NW 09-01 19:10 → 4EST 09-03 14:49 → DCLOUNGE 09-04 12:48
PROVIDERS: ADMIT Hospitalist; ATTEND Hospitalist
PROC: 5A1D70Z Performance of Urinary Filtration, Intermittent, Less than 6 Hours Per Day (ICD-10-PCS; principal; 2019-09-01)
PROC: 5A1D70Z Performance of Urinary Filtration, Intermittent, Less than 6 Hours Per Day (ICD-10-PCS; 2019-09-02)
PROC: 5A1D70Z Performance of Urinary Filtration, Intermittent, Less than 6 Hours Per Day (ICD-10-PCS; 2019-09-03)
DX: E87.5 Hyperkalemia (principal); N18.6 End stage renal disease; I13.2 Hypertensive heart and chronic kidney disease with heart failure and with stage 5 chronic kidney disease, or end stage renal disease; N39.0 Urinary tract infection, site not specified; T81.31XA Disruption of external operation (surgical) wound, not elsewhere classified, initial encounter; E46 Unspecified protein-calorie malnutrition; I50.32 Chronic diastolic (congestive) heart failure; N25.81 Secondary hyperparathyroidism of renal origin; E87.70 Fluid overload, unspecified; E87.1 Hypo-osmolality and hyponatremia; E11.22 Type 2 diabetes mellitus with diabetic chronic kidney disease; Z20.828 Contact with and (suspected) exposure to other viral communicable diseases; B34.9 Viral infection, unspecified; D63.1 Anemia in chronic kidney disease; E11.42 Type 2 diabetes mellitus with diabetic polyneuropathy; D63.8 Anemia in other chronic diseases classified elsewhere; E11.65 Type 2 diabetes mellitus with hyperglycemia; E66.01 Morbid (severe) obesity due to excess calories; E78.5 Hyperlipidemia, unspecified; N25.0 Renal osteodystrophy; R62.7 Adult failure to thrive; Z82.5 Family history of asthma and other chronic lower respiratory diseases; Z91.15 Patient's noncompliance with renal dialysis; Z99.2 Dependence on renal dialysis; Z88.8 Allergy status to other drugs, medicaments and biological substances; Z91.048 Other nonmedicinal substance allergy status; Z91.09 Other allergy status, other than to drugs and biological substances; Z83.6 Family history of other diseases of the respiratory system; Z82.49 Family history of ischemic heart disease and other diseases of the circulatory system; Z68.33 Body mass index [BMI] 33.0-33.9, adult; Z79.899 Other long term (current) drug therapy; Z79.84 Long term (current) use of oral hypoglycemic drugs
CPT/HCPCS: 36415; 71045; 80053; 80069; 81001; 82728; 82962; 83605; 83615; 83735; 84145; 84484; 85025; 85379; 85610; 85651; 86140; 86705; 86706; 87040; 87086; 87340; 87635; 90935; 93005; 96372; 96374; 96375; 96376; G0378; J0696; J0881; J1644; J1650; J1940; J2405; J1815; J2270